=== PATIENT | female | born 1990 | race Caucasian/White ===

== ENCOUNTER → 2018-03-31 10:37 | Outpatient (CLI) | payer BC, SELFPAY ==
[2018-03-31 12:08] LABS: Absolute Lymphocyte Count 1.82 X10^3/ul (0.83-4.51); Absolute Neutrophil Count 6.8 X10^3/uL (2.0-7.7); Basophil# 0.02 X10^3/uL; Basophil% 0.2 % (0-1); Eosinophil# 0.06 X10^3/uL; Eosinophils% 0.7 % (0-5); Hematocrit 36.6 % (37-47); Hemoglobin 12.8 g/dl (12.0-15.0); Lymphocyte # 1.82 X10^3/ul (4.0); Mean Corpuscular Hgb 30.9 pg (27.0-32.0); Mean Corpuscular Volume 88.4 fL (81-99); Mean Platelet Vol. 8.8 fl (6.2-12.0); Monocyte% 4.4 % (0-10); Neutrophil # 6.79 X10^3/uL (2.7-7.7); Neutrophil % 74.4 % (47-70); Platelet Count 311 K/mm3 (150-450); RBC Distribution Width CV 11.8 % (11.6-14.6); RBC Distribution Width SD 37.5 fl (35.1-43.9); Red Blood Count 4.14 M/mm3 (4.2-5.4); White Blood Count 9.1 K/mm3 (4.4-11.0)
[2018-03-31 12:11] LABS: Glucose Challenge Gest 1H 50g 160 mg/dL (70-140); POSITIVE COUNT NO; POSITIVE DIFFERENTIAL NO; POSITIVE MORPHOLOGY NO
[2018-03-31 13:05] LABS: HIV - WCH Non-Reactive (Nonreactive); Rubella IgG 246.3 IU/mL
[2018-04-02 10:19] LABS: HEPATITIS B SURFACE AG Negative (Negative)
[2018-04-07 03:47] LABS: Rapid Plasmin Reagin (RPR) NONREACTIVE (NONREACTIVE)
== END ==
PROVIDERS: PCP Student in an Organized Health Care Education/Training Program; Visit Provider Obstetrics & Gynecology
DX: Z34.81 Encounter for supervision of other normal pregnancy, first trimester (principal)
CPT/HCPCS: 82950; 85025; 86592; 86703; 86762; 86850; 86900; 87340

== ENCOUNTER → 2018-03-31 18:47 | Outpatient (CLI) | payer BC, SELFPAY ==
[2018-03-31 22:36] LABS: Chlamydia Trachomatis by PCR Negative (Negative); Neisserai gonorrhoeae by PCR Negative (Negative)
[2018-03-31 22:37] LABS: Probe Check PASS; Sample Adequacy Control PASS; Specimen Processing Control PASS
[2018-04-05 12:12] LABS: HPV APTIMA, High Risk Negative (Negative)
== END ==
PROVIDERS: Visit Provider Obstetrics & Gynecology
DX: Z34.81 Encounter for supervision of other normal pregnancy, first trimester (principal); Z12.4 Encounter for screening for malignant neoplasm of cervix
CPT/HCPCS: 87086; 87491; 87591; 88175; G0145

== ENCOUNTER → 2018-04-10 09:51 | Outpatient (CLI) | payer BC, SELFPAY ==
[2018-04-10 10:39] LABS: Glucose GTT-Gestation. Fasting 86 mg/dL (<105)
[2018-04-10 12:27] LABS: Glucose GTT-Gestational 1 Hr 155 mg/dL (<190)
[2018-04-10 13:09] LABS: Glucose GTT-Gestational 2 Hr 169 mg/dL (<165)
[2018-04-10 14:35] LABS: Glucose GTT-Gestational 3 Hr 165 L (<145)
== END ==
PROVIDERS: Family Provider Student in an Organized Health Care Education/Training Program; PCP Student in an Organized Health Care Education/Training Program; Visit Provider Obstetrics & Gynecology
DX: O99.810 Abnormal glucose complicating pregnancy (principal); Z3A.00 Weeks of gestation of pregnancy not specified
CPT/HCPCS: 36415; 82951; 82952

== ENCOUNTER 2018-04-13 09:11 | Outpatient (RCR) | payer BC, SELFPAY | END 2018-04-15 23:59 | LOC: DC 09:11 | PROVIDERS: Family Provider Student in an Organized Health Care Education/Training Program; PCP Student in an Organized Health Care Education/Training Program; Visit Provider Obstetrics & Gynecology | DX: O24.419 Gestational diabetes mellitus in pregnancy, unspecified control (principal); Z71.3 Dietary counseling and surveillance | CPT/HCPCS: G0108 ==

== ENCOUNTER 2018-04-24 15:12 | Outpatient (RCR) | payer BC, SELFPAY | END 2018-05-16 23:59 | LOC: DC 15:12 | PROVIDERS: Family Provider Student in an Organized Health Care Education/Training Program; PCP Student in an Organized Health Care Education/Training Program; Visit Provider Obstetrics & Gynecology | DX: O24.419 Gestational diabetes mellitus in pregnancy, unspecified control (principal); Z71.3 Dietary counseling and surveillance | CPT/HCPCS: 97802 ==

== ENCOUNTER → 2018-06-12 15:19 | Outpatient (CLI) | payer BC, SELFPAY | PROVIDERS: Family Provider Student in an Organized Health Care Education/Training Program; PCP Student in an Organized Health Care Education/Training Program; Visit Provider Obstetrics & Gynecology | DX: Z34.90 Encounter for supervision of normal pregnancy, unspecified, unspecified trimester (principal) | CPT/HCPCS: 76805 ==

== ENCOUNTER → 2018-08-18 13:32 | Outpatient (CLI) | payer BC, SELFPAY ==
[2018-08-18 13:46] LABS: Absolute Lymphocyte Count 2.55 X10^3/ul (0.83-4.51); Absolute Neutrophil Count 9.7 X10^3/uL (2.0-7.7); Basophil# 0.01 X10^3/uL; Basophil% 0.1 % (0-1); Eosinophil# 0.13 X10^3/uL; Hematocrit 37.7 % (37-47); Hemoglobin 12.8 g/dl (12.0-15.0); Lymphocyte # 2.55 X10^3/ul (4.0); Lymphocyte % 19.2 % (19-41); Mean Corpuscular Hgb 30.3 pg (27.0-32.0); Mean Corpuscular Volume 89.1 fL (81-99); Mean Platelet Vol. 8.1 fl (6.2-12.0); Monocyte# 0.81 X10^3/uL; Monocyte% 6.1 % (0-10); Neutrophil # 9.71 X10^3/uL (2.7-7.7); Neutrophil % 72.9 % (47-70); POSITIVE COUNT NO; POSITIVE DIFFERENTIAL NO; POSITIVE MORPHOLOGY NO; Platelet Count 256 K/mm3 (150-450); RBC Distribution Width CV 12.5 % (11.6-14.6); RBC Distribution Width SD 39.9 fl (35.1-43.9); Red Blood Count 4.23 M/mm3 (4.2-5.4); White Blood Count 13.3 K/mm3 (4.4-11.0)
== END ==
PROVIDERS: Family Provider Student in an Organized Health Care Education/Training Program; PCP Student in an Organized Health Care Education/Training Program; Referring Provider Obstetrics & Gynecology; Visit Provider Obstetrics & Gynecology
DX: O24.410 Gestational diabetes mellitus in pregnancy, diet controlled (principal); Z3A.00 Weeks of gestation of pregnancy not specified
CPT/HCPCS: 36415; 85025

== ENCOUNTER → 2018-10-13 17:36 | Outpatient (CLI) | payer BC, SELFPAY ==
[2018-10-13 13:27] VITALS: BMI 36.9
[2018-10-13 21:11] LABS: Group B Strep DNA By PCR Negative (Negative); Internal Control PASS; Probe Check PASS; Specimen Processing Control PASS
== END ==
PROVIDERS: Family Provider Student in an Organized Health Care Education/Training Program; PCP Student in an Organized Health Care Education/Training Program; Referring Provider Obstetrics & Gynecology; Visit Provider Obstetrics & Gynecology
DX: Z34.90 Encounter for supervision of normal pregnancy, unspecified, unspecified trimester (principal)
CPT/HCPCS: 87081; 87653

== ENCOUNTER → 2018-10-16 09:01 | Outpatient (CLI) | payer BC, SELFPAY ==
[2018-09-15 13:21] VITALS: BMI 36.9
[2018-10-13 13:27] VITALS: BMI 36.9
--- NOTE | 2018-10-16 09:02 | US_ITS ---
STUDY: SECOND AND THIRD TRIMESTER OBSTETRICAL ULTRASOUND - LIMITED REASON FOR EXAM: Female, 28 years old. Routine survey. LMP: January 30, 2018. PRIOR ULTRASOUND: Comparison is made with prior study dated June 12, 2018. TECHNIQUE: Transabdominal TECHNICAL QUALITY: Adequate. FINDINGS: There is a single intrauterine fetus. The fetus is in a cephalic presentation. There is demonstrated cardiac activity with a heart rate of 156 bpm. There is a normal amniotic fluid volume. The largest amniotic fluid pocket measures 5.0 cm x 2.2 cm. The amniotic fluid index (ANGELICA) is 9.4 cm. The placenta is anterior in location and is not low lying. There are Grade 3 placental changes. The cervical length was not able to be measured due to the positioning. BIOMETRY: BPD: 9.3 cm: 38 weeks, 0 days HC: 34.4 cm: 39 weeks, 6 days AC: 34.6 cm: 38 weeks, 4 days FL: 7.3 cm: 37 weeks, 2 days Age by LMP: 37 weeks, 0 days. JENNIFER by LMP: November 06, 2018. age by prior US: 37 weeks, 3 days. JENNIFER by prior US: November 03, 2018. age by current US: 38 weeks, 3 days. JENNIFER by current US: October 27, 2018. Estimated weight: 3458 grams, +/- 5.5 grams, 87 percentile. Gender: Female US/OB Limited With Biometrics IMPRESSION: Single live intrauterine gestation with a mean gestational age of 37 weeks and 3 days. The measurements obtained today fall within the normal expected range. Electronically Signed: Adam Hernandez MD at 14:13 EST Tel [phone], Service support ,
== END ==
PROVIDERS: Family Provider Student in an Organized Health Care Education/Training Program; PCP Student in an Organized Health Care Education/Training Program; Referring Provider Obstetrics & Gynecology; Visit Provider Obstetrics & Gynecology
DX: O24.410 Gestational diabetes mellitus in pregnancy, diet controlled (principal); Z3A.00 Weeks of gestation of pregnancy not specified
CPT/HCPCS: 76816

== ENCOUNTER 2018-10-19 11:05 | Outpatient (CLI) | payer BC, MEDICAID, SELFPAY ==
[2018-10-13 13:27] VITALS: BMI 36.9
[2018-10-19 11:16] VITALS: BMI 37.9
[2018-10-19 11:48] LABS: Protein, Urine (Random) 11.8 mg/dL (<11.9); Protein:Creat Ratio 217 mg/g CRE (0-200)
[2018-10-19 11:48] LABS: Hematocrit 40.2 % (37-47); Hemoglobin 13.7 g/dl (12.0-15.0); Mean Corp Hgb Conc 34.1 g/gl (32-36); Mean Corpuscular Hgb 29.8 pg (27.0-32.0); Mean Corpuscular Volume 87.4 fL (81-99); Mean Platelet Vol. 8.8 fl (6.2-12.0); Platelet Count 222 K/mm3 (150-450); RBC Distribution Width CV 13.1 % (11.6-14.6); RBC Distribution Width SD 41.8 fl (35.1-43.9); White Blood Count 11.2 K/mm3 (4.4-11.0)
[2018-10-19 11:50] LABS: Scan Indicated on CBC? Y/N NO
[2018-10-19 11:57] LABS: AST(SGOT) 22 U/L (15-37); Alanine Aminotransfer ALT/SGPT 14 U/L (13-56); Creatinine, Serum 0.56 mg/dL (0.55-1.02); EST Glomerular Filtration Rate 137 mL/min (>60); Est Glom Filt Rate - Afr Amer 166 mL/min (>60); Estimated Creatinine Clearance 138.76 ml/min; Uric Acid 4.9 mg/dL (2.6-6.0)
[2018-10-19] MEDS: 0.9% NaCl Peripheral Flush Adult/Peds IV (12:19)
[2018-10-19 12:21] LABS: International Normalized Ratio 1.1; Partial Thromboplast Time 26.2 Seconds (24.1-36.2); Prothrombin Time (Protime)PT. 14.1 SECONDS (11.7-14.9)
--- NOTE | 2018-10-26 03:52 | OB.TRI.NOTE ---
- Problem List (1) Gestational hypertension Status: Acute History of Present Illness Date of Service: 10/19/18 Reason For Visit: R/O PRE E History of Present Illness: elevated bp in office Allergies No Known Allergies Allergy (Verified 10/23/18 22:54) Laboratory Studies: Laboratory Tests 10/19/18 10/19/18 10/19/18 Range/Units 11:55 11:35 11:35 WBC (4.4-11.0) K/mm3 RBC (4.2-5.4) M/mm3 Hgb (12.0-15.0) g/dl Hct (37-47) % MCV (81-99) fL MCH (27.0-32.0) pg MCHC (32-36) g/gl RDW (11.6-14.6) % RDW Differential (35.1-43.9) fl Plt Count (150-450) K/mm3 MPV (6.2-12.0) fl PT 14.1 Cancelled INR 1.1 Cancelled APTT 26.2 Cancelled Creatinine 0.56 (0.55-1.02) mg/dL Estim Creat Clear Calc 138.76 ml/min Est GFR (MDRD) Af Amer 166 (>60) mL/min Est GFR (MDRD) Non-Af 137 (>60) mL/min Uric Acid 4.9 (2.6-6.0) mg/dL AST 22 (15-37) U/L ALT 14 (13-56) U/L U Random Total Protein (<11.9) mg/dL Urine Creatinine (NO RANGE EST.) mg/dL Protein/Creatinin Ratio (0-200) mg/g CRE 10/19/18 10/19/18 Range/Units 11:35 11:20 WBC 11.2 H (4.4-11.0) K/mm3 RBC 4.60 (4.2-5.4) M/mm3 Hgb 13.7 (12.0-15.0) g/dl Hct 40.2 (37-47) % MCV 87.4 (81-99) fL MCH 29.8 (27.0-32.0) pg MCHC 34.1 (32-36) g/gl RDW 13.1 (11.6-14.6) % RDW Differential 41.8 (35.1-43.9) fl Plt Count 222 (150-450) K/mm3 MPV 8.8 (6.2-12.0) fl PT INR APTT Creatinine (0.55-1.02) mg/dL Estim Creat Clear Calc ml/min Est GFR (MDRD) Af Amer (>60) mL/min Est GFR (MDRD) Non-Af (>60) mL/min Uric Acid (2.6-6.0) mg/dL AST (15-37) U/L ALT (13-56) U/L U Random Total Protein 11.8 (<11.9) mg/dL Urine Creatinine 54.30 (NO RANGE EST.) mg/dL Protein/Creatinin Ratio 217 H (0-200) mg/g CRE NST - FHR Rate Baby A Baseline: 135 Variability:: Moderate Accelerations:: 15 x 15 Decelerations:: None NST Reactive:: Yes FHR Category:: Category I Uterine Activity:: no regular Impression/Plan elevated bp in office- repeats WNL. normal labs and negative proteinuria. fu in office, reviewed preeclampsia precautions
== END 2018-10-19 16:30 | disposition home or self-care (01) ==
LOC: WPOUT 11:08 → WP 11:10
PROVIDERS: Family Provider Student in an Organized Health Care Education/Training Program; PCP Student in an Organized Health Care Education/Training Program; Referring Provider Obstetrics & Gynecology; Visit Provider Obstetrics & Gynecology
DX: O16.9 Unspecified maternal hypertension, unspecified trimester (principal); Z3A.00 Weeks of gestation of pregnancy not specified
CPT/HCPCS: 36415; 59025; 59050; 82565; 82570; 84156; 84450; 84460; 84550; 85027; 85610; 85730; 99218; A4216; G0378

== ENCOUNTER 2018-10-23 10:20 | Outpatient (CLI) | payer BC, MEDICAID, SELFPAY ==
[2018-10-23 10:33] LABS: Protein, Urine (Random) 8.6 mg/dL (<11.9); Protein:Creat Ratio 218 mg/g CRE (0-200)
[2018-10-23 10:55] VITALS: BMI 38.2
[2018-10-23 11:30] LABS: Hematocrit 38.4 % (37-47); Hemoglobin 12.9 g/dl (12.0-15.0); Mean Corp Hgb Conc 33.6 g/gl (32-36); Mean Corpuscular Hgb 29.2 pg (27.0-32.0); Mean Corpuscular Volume 86.9 fL (81-99); Mean Platelet Vol. 8.5 fl (6.2-12.0); Platelet Count 209 K/mm3 (150-450); RBC Distribution Width CV 12.9 % (11.6-14.6); RBC Distribution Width SD 41.6 fl (35.1-43.9); Red Blood Count 4.42 M/mm3 (4.2-5.4); White Blood Count 10.7 K/mm3 (4.4-11.0)
[2018-10-23 11:34] LABS: International Normalized Ratio 1.1; Prothrombin Time (Protime)PT. 13.7 SECONDS (11.7-14.9)
[2018-10-23 11:35] LABS: Partial Thromboplast Time 25.2 Seconds (24.1-36.2)
[2018-10-23 11:37] LABS: Scan Indicated on CBC? Y/N NO
[2018-10-23 11:40] LABS: AST(SGOT) 13 U/L (15-37); Alanine Aminotransfer ALT/SGPT 13 U/L (13-56); Creatinine, Serum 0.51 mg/dL (0.55-1.02); EST Glomerular Filtration Rate 152 mL/min (>60); Est Glom Filt Rate - Afr Amer 184 mL/min (>60); Estimated Creatinine Clearance 152.37 ml/min; Uric Acid 5.3 mg/dL (2.6-6.0)
--- NOTE | 2018-10-26 03:54 | OB.TRI.NOTE ---
- Problem List (1) Gestational hypertension Status: Acute History of Present Illness Date of Service: 10/23/18 Was patient seen by the physician?: Yes Reason For Visit: R/O PRE E Date of Service: 10/23/18 History of Present Illness: presents for elevate bp in office Allergies No Known Allergies Allergy (Verified 10/23/18 22:54) Laboratory Studies: Laboratory Tests 10/23/18 10/23/18 10/23/18 Range/Units 11:17 11:17 11:17 WBC 10.7 (4.4-11.0) K/mm3 RBC 4.42 (4.2-5.4) M/mm3 Hgb 12.9 (12.0-15.0) g/dl Hct 38.4 (37-47) % MCV 86.9 (81-99) fL MCH 29.2 (27.0-32.0) pg MCHC 33.6 (32-36) g/gl RDW 12.9 (11.6-14.6) % RDW Differential 41.6 (35.1-43.9) fl Plt Count 209 (150-450) K/mm3 MPV 8.5 (6.2-12.0) fl PT 13.7 (11.7-14.9) SECONDS INR 1.1 APTT 25.2 (24.1-36.2) Seconds Creatinine 0.51 L (0.55-1.02) mg/dL Estim Creat Clear Calc 152.37 ml/min Est GFR (MDRD) Af Amer 184 (>60) mL/min Est GFR (MDRD) Non-Af 152 (>60) mL/min Uric Acid 5.3 (2.6-6.0) mg/dL AST 13 L (15-37) U/L ALT 13 (13-56) U/L U Random Total Protein (<11.9) mg/dL Urine Creatinine (NO RANGE EST.) mg/dL Protein/Creatinin Ratio (0-200) mg/g CRE 10/23/18 Range/Units 10:18 WBC (4.4-11.0) K/mm3 RBC (4.2-5.4) M/mm3 Hgb (12.0-15.0) g/dl Hct (37-47) % MCV (81-99) fL MCH (27.0-32.0) pg MCHC (32-36) g/gl RDW (11.6-14.6) % RDW Differential (35.1-43.9) fl Plt Count (150-450) K/mm3 MPV (6.2-12.0) fl PT (11.7-14.9) SECONDS INR APTT (24.1-36.2) Seconds Creatinine (0.55-1.02) mg/dL Estim Creat Clear Calc ml/min Est GFR (MDRD) Af Amer (>60) mL/min Est GFR (MDRD) Non-Af (>60) mL/min Uric Acid (2.6-6.0) mg/dL AST (15-37) U/L ALT (13-56) U/L U Random Total Protein 8.6 (<11.9) mg/dL Urine Creatinine 39.50 (NO RANGE EST.) mg/dL Protein/Creatinin Ratio 218 H (0-200) mg/g CRE NST - FHR Rate Baby A Baseline: 135 Variability:: Moderate Accelerations:: 15 x 15 Decelerations:: None NST Reactive:: Yes FHR Category:: Category I Uterine Activity:: no regular Impression/Plan elevated bp in office- repeats WNL. normal labs and negative proteinuria. recommend home bp checks. fu in office, reviewed preeclampsia precautions
== END 2018-10-23 13:02 | disposition home or self-care (01) ==
LOC: LABSPEC 10:22 → WPOUT 10:25 → WP 10:25
PROVIDERS: Family Provider Student in an Organized Health Care Education/Training Program; PCP Student in an Organized Health Care Education/Training Program; Referring Provider Obstetrics & Gynecology; Visit Provider Obstetrics & Gynecology
DX: O16.9 Unspecified maternal hypertension, unspecified trimester (principal); Z3A.00 Weeks of gestation of pregnancy not specified
CPT/HCPCS: 36415; 59025; 59050; 82565; 82570; 84156; 84450; 84460; 84550; 85027; 85610; 85730; 99218; G0378

== ENCOUNTER 2018-10-23 18:00 | Inpatient (IN) | payer BC, MEDICAID, SELFPAY ==
[2018-10-23 10:55] VITALS: BMI 38.2
[2018-10-23 17:37] VITALS: BMI 38.2
[2018-10-23 18:16] LABS: Bedside Glucose 96 mg/dL (70-110)
[2018-10-23] MEDS: Lactated Ringers 1,000 ML 50 ML IV (18:50)
[2018-10-23 19:08] LABS: Hematocrit 36.5 % (37-47); Hemoglobin 12.5 g/dl (12.0-15.0); Mean Corp Hgb Conc 34.2 g/gl (32-36); Mean Corpuscular Hgb 30.2 pg (27.0-32.0); Mean Corpuscular Volume 88.2 fL (81-99); Mean Platelet Vol. 8.8 fl (6.2-12.0); Platelet Count 248 K/mm3 (150-450); RBC Distribution Width SD 40.3 fl (35.1-43.9); Red Blood Count 4.14 M/mm3 (4.2-5.4); White Blood Count 11.2 K/mm3 (4.4-11.0)
[2018-10-23 19:11] LABS: Scan Indicated on CBC? Y/N NO
[2018-10-23] MEDS: oxyCODONE 5 MG Tablet PO (19:43)
[2018-10-23] MEDS: miSOPROStol 25 MCG TABLET PO (19:48)
[2018-10-23 20:02] LABS: Bedside Glucose 76 mg/dL (70-110)
[2018-10-23] MEDS: 0.9% Saline Lock 10 ML Syringe IV (21:09)
[2018-10-24] MEDS: miSOPROStol 25 MCG TABLET PO (00:18)
[2018-10-24 00:31] LABS: Bedside Glucose 82 mg/dL (70-110)
[2018-10-24 04:31] LABS: Bedside Glucose 77 mg/dL (70-110)
[2018-10-24] MEDS: 0.9% Saline Lock 10 ML Syringe IV (07:17)
[2018-10-24] MEDS: Oxytocin 30 units/NS 500 ml 30 UNITS/500 ML IV.SOLN IV (07:17)
--- NOTE | 2018-10-24 08:25 | PCM.HP.OB ---
- Problem List (1) Gestational hypertension Status: Acute (2) IUD contraception Status: Acute Comment: Preauth. Hector for insertion at delivery (3) Supervision of high risk in third trimester Status: Acute Comment: PRR JENNIFER 11/06/18 PC Thiago Strickland Tim[place] (4) Obesity affecting Status: Acute Qualifiers: Comment: first trimester glucola abnormal, diet/exercise in discussed (5) Status: Acute Qualifiers: Comment: genetic, carrier, and NTD declned. anatomy scan- (6) Diet controlled gestational diabetes mellitus in third trimester Status: Acute Comment: education, testing recommended 4 times daily, plan 36 week growth US History Date of Admission: 10/23/18 Final JENNIFER: 11/06/18 Gestational age: 38 Weeks and 1 Days History of this : This is a 28 year-old, at 38 weeks gestational age presents with GHTN and elevated bps mild range some intermitent david. she has had a complicated by GDMA1. she ddenies any vb lof admits good fm. Allergies No Known Allergies Allergy (Verified 10/23/18 22:54) Home Medications: Home Medications vitamin,calcium,huyugkle-xogl-fujqo acid tablet 1 tab PO QDAY 03/31/18 blood-glucose meter See Dose Instructions .ROUTE .MEDSUPPLY #1 ea 04/11/18 Blood Sugar Diagnostic [Contour Test Strip] 0 .ROUTE .MEDSUPPLY 10/23/18 Smoking Status: Never smoker Alcohol: None Number of Fetus(es): 1 Heart Tracin moderate variability reactive no decelerations category I tracing\ [place]: regular History Past Pregnancies: Past Pregnancies2 previous term uncomplicated Labs: Mom's Labs & Results 10/23/18 10/23/18 10/23/18 18:11 18:50 18:50 WBC 11.2 H RBC 4.14 L Hgb 12.5 Hct 36.5 L MCV 88.2 MCH 30.2 MCHC 34.2 RDW 13.0 RDW Differential 40.3 Plt Count 248 MPV 8.8 POC Glucose 96 Blood Type O POSITIVE Antibody Screen NEGATIVE 10/23/18 10/24/18 10/24/18 19:55 00:20 04:01 WBC RBC Hgb Hct MCV MCH MCHC RDW RDW Differential Plt Count MPV POC Glucose 76 82 77 Blood Type Antibody Screen 10/24/18 08:08 WBC RBC Hgb Hct MCV MCH MCHC RDW RDW Differential Plt Count MPV POC Glucose 72 Blood Type Antibody Screen Course Did the patient receive Yes care? Labs Blood Type: O RH: POSITIVE RPR/VDRL/Syphilis Nonreactive Rubella status Immune HbSAg Negative Date Done: 03/31/18 Chlamydia Negative Gonorrhea Negative HIV/AIDS Non-Reactive Group B Strep: Negative Current Obstetrical History Gestational Diabetes No: gestational dm diet controlled Incompetent Cervix No Infertility No IUGR No Macrosomia No Hypertension/Pre-eclampsia Yes Placenta Previa/Abruption No PTL/PROM No Uterine anomaly No Oligohydramnios No Polyhydramnios No Multiple gestation No Past Medical History Asthma No Diabetes No Hypertension No Heart disease No Mitral valve prolapse No Neurologic/Seizure disorder/ Yes Migraines Kidney disease No Liver disease No Varicosities No Clotting disorders/Hx of DVT No Thyroid Dysfunction No Other medical diseases No Psychiatric disorders No Major trauma No Abnormal PAP smear No Sleep apnea No Mammogram in the last 2 years No Social History Marital Status: Alleged father Timi Rushing Hx Smoking No Smoking Status Never smoker Expected Infant Delivery Method: Spontaneous Vaginal Review of Systems Constitutional: Denies: Fever, Malaise Eyes: Reports: Vision Change. Denies: Blurred vision HEENT: Reports: Head Aches, Visual Changes Cardiovascular: Denies: Chest Pain, Palpitations Respiratory: Denies: Cough, Shortness of Breath, Wheezing Gastrointestinal: Denies: Abdominal Pain, Diarrhea, Nausea, Vomiting Genitourinary: Denies: Dysuria, Hematuria Musculoskeletal: Denies: Joint Pain, Muscle pain Skin: Denies: Lesions, Rash Neurological: Reports: Headaches. Denies: Blurred vision, Focal weakness Psychiatric: Denies: Anxiety, Depression Endocrine: Denies: Heat/ Cold Intolerance Hematologic/ Lymphatic: Denies: Easy Bruising, Easy Bleeding Physical Exam General: Alert, Cooperative, No apparent distress HEENT: Atraumatic, Normocephalic. Negative for: Thyromegaly, Lymphadenopathy Cardiovascular: Regular rate Lungs: Normal air movement Abdomen: Soft, Non Tender, Gravid Neurological: Deep Tendon Reflexes 2+/4 and Symmetrical, Neuro grossly intact. Negative for: Clonus NETWORK RELAY TESTER: Normal external genitalia. Negative for: Vulvar lesions Estimated gestational size: Appropriate for gestational size Presentation: Cephalic Cervix Dilation (cm): 2 Assessment/Plan All Active Problems (Last Reviewed 10/19/18 @ 10:25 by Chikis Velazquez) Gestational hypertension (Acute) IUD contraception (Acute) Supervision of high risk in third trimester (Acute) Obesity affecting (Acute) (Acute) Diet controlled gestational diabetes mellitus in third trimester (Acute) BMI 33.0-33.9,adult (Resolved) Supervision of normal (Resolved) This is a 28 year-old, , at 38 weeks gestational age presents with GHTN for IOL Patient presents IOL, plan expectant management for , pitocin/AROM after cytotec for cervical ripening. Pain management: plans epidural. GBS negative. Management of any complications: diabetes- q 4 hours BS check latent phase and q 1 hr in active phase labor I have reviewed the [facility] and made any clinically relevant updates.
[2018-10-24 08:26] LABS: Bedside Glucose 72 mg/dL (70-110)
--- NOTE | 2018-10-24 08:29 | HP.PCM_ITS ---
- Problem List (1) Gestational hypertension Status: Acute (2) IUD contraception Status: Acute Comment: Preauth. Hector for insertion at delivery (3) Supervision of high risk in third trimester Status: Acute Comment: PRR JENNIFER 11/06/18 PC Thiago Strickland [place] (4) Obesity affecting Status: Acute Qualifiers: Comment: first trimester glucola abnormal, diet/exercise in discussed (5) Status: Acute Qualifiers: Comment: genetic, carrier, and NTD declned. anatomy scan- (6) Diet controlled gestational diabetes mellitus in third trimester Status: Acute Comment: education, testing recommended 4 times daily, plan 36 week growth US History Date of Admission: 10/23/18 Final JENNIFER: 11/06/18 Gestational age: 38 Weeks and 1 Days History of this : This is a 28 year-old, at 38 weeks gestational age presents with GHTN and elevated bps mild range some intermitent david. she has had a complicated by GDMA1. she ddenies any vb lof admits good fm. Allergies No Known Allergies Allergy (Verified 10/23/18 22:54) Home Medications: Home Medications vitamin,calcium,demhsaik-vimj-xbgrt acid tablet 1 tab PO QDAY 03/31/18 blood-glucose meter See Dose Instructions .ROUTE .MEDSUPPLY #1 ea 04/11/18 Blood Sugar Diagnostic [Contour Test Strip] 0 .ROUTE .MEDSUPPLY 10/23/18 Smoking Status: Never smoker Alcohol: None Number of Fetus(es): 1 Heart Tracin moderate variability reactive no decelerations category I tracing\ [place]: regular History Past Pregnancies: Past Pregnancies2 previous term uncomplicated Labs: Mom's Labs & Results 10/23/18 10/23/18 10/23/18 18:11 18:50 18:50 WBC 11.2 H RBC 4.14 L Hgb 12.5 Hct 36.5 L MCV 88.2 MCH 30.2 MCHC 34.2 RDW 13.0 RDW Differential 40.3 Plt Count 248 MPV 8.8 POC Glucose 96 Blood Type O POSITIVE Antibody Screen NEGATIVE 10/23/18 10/24/18 10/24/18 19:55 00:20 04:01 WBC RBC Hgb Hct MCV MCH MCHC RDW RDW Differential Plt Count MPV POC Glucose 76 82 77 Blood Type Antibody Screen 10/24/18 08:08 WBC RBC Hgb Hct MCV MCH MCHC RDW RDW Differential Plt Count MPV POC Glucose 72 Blood Type Antibody Screen Course Did the patient receive Yes care? Labs Blood Type: O RH: POSITIVE RPR/VDRL/Syphilis Nonreactive Rubella status Immune HbSAg Negative Date Done: 03/31/18 Chlamydia Negative Gonorrhea Negative HIV/AIDS Non-Reactive Group B Strep: Negative Current Obstetrical History Gestational Diabetes No: gestational dm diet controlled Incompetent Cervix No Infertility No IUGR No Macrosomia No Hypertension/Pre-eclampsia Yes Placenta Previa/Abruption No PTL/PROM No Uterine anomaly No Oligohydramnios No Polyhydramnios No Multiple gestation No Past Medical History Asthma No Diabetes No Hypertension No Heart disease No Mitral valve prolapse No Neurologic/Seizure disorder/ Yes Migraines Kidney disease No Liver disease No Varicosities No Clotting disorders/Hx of DVT No Thyroid Dysfunction No Other medical diseases No Psychiatric disorders No Major trauma No Abnormal PAP smear No Sleep apnea No Mammogram in the last 2 years No Social History Marital Status: Alleged father Timi Rushing Hx Smoking No Smoking Status Never smoker Expected Infant Delivery Method: Spontaneous Vaginal Review of Systems Constitutional: Denies: Fever, Malaise Eyes: Reports: Vision Change. Denies: Blurred vision HEENT: Reports: Head Aches, Visual Changes Cardiovascular: Denies: Chest Pain, Palpitations Respiratory: Denies: Cough, Shortness of Breath, Wheezing Gastrointestinal: Denies: Abdominal Pain, Diarrhea, Nausea, Vomiting Genitourinary: Denies: Dysuria, Hematuria Musculoskeletal: Denies: Joint Pain, Muscle pain Skin: Denies: Lesions, Rash Neurological: Reports: Headaches. Denies: Blurred vision, Focal weakness Psychiatric: Denies: Anxiety, Depression Endocrine: Denies: Heat/ Cold Intolerance Hematologic/ Lymphatic: Denies: Easy Bruising, Easy Bleeding Physical Exam General: Alert, Cooperative, No apparent distress HEENT: Atraumatic, Normocephalic. Negative for: Thyromegaly, Lymphadenopathy Cardiovascular: Regular rate Lungs: Normal air movement Abdomen: Soft, Non Tender, Gravid Neurological: Deep Tendon Reflexes 2+/4 and Symmetrical, Neuro grossly intact. Negative for: Clonus PARTS IDENTIFIER: Normal external genitalia. Negative for: Vulvar lesions Estimated gestational size: Appropriate for gestational size Presentation: Cephalic Cervix Dilation (cm): 2 Assessment/Plan All Active Problems (Last Reviewed 10/19/18 @ 10:25 by Chikis Velazquez) Gestational hypertension (Acute) IUD contraception (Acute) Supervision of high risk in third trimester (Acute) Obesity affecting (Acute) (Acute) Diet controlled gestational diabetes mellitus in third trimester (Acute) BMI 33.0-33.9,adult (Resolved) Supervision of normal (Resolved) This is a 28 year-old, , at 38 weeks gestational age presents with GHTN for IOL Patient presents IOL, plan expectant management for , pitocin/AROM after cytotec for cervical ripening. Pain management: plans epidural. GBS negative. Management of any complications: diabetes- q 4 hours BS check latent phase and q 1 hr in active phase labor I have reviewed the [facility] and made any clinically relevant updates.
[2018-10-24] MEDS: Lactated Ringers 1,000 ML 50 ML IV (10:11)
[2018-10-24] MEDS: fentaNYL-bupivacaine (epidural) 100 ML BAG EPIDURAL (10:30)
[2018-10-24 10:45] LABS: Bedside Glucose 75 mg/dL (70-110)
[2018-10-24 12:05] LABS: Bedside Glucose 66 mg/dL (70-110)
[2018-10-24 12:55] LABS: Bedside Glucose 70 mg/dL (70-110)
[2018-10-24] MEDS: Oxytocin 30 units/NS 500 ml 30 UNITS/500 ML IV.SOLN 334 UNITS IV (13:20)
[2018-10-24] MEDS: Oxytocin 30 units/NS 500 ml 30 UNITS/500 ML IV.SOLN 167 UNITS IV (13:50)
[2018-10-24 14:41] LABS: Bedside Glucose 92 mg/dL (70-110)
--- NOTE | 2018-10-24 15:35 | NURSING ---
Received report from Fani Owens and Kirsten De Luna. I will assume care of patient at this time.
[2018-10-24 15:59] VITALS: BP 125/60; PULSE 97; RESP 16; TEMP 37.2; O2SAT 95
[2018-10-24] MEDS: Naproxen 250 MG Tablet PO (18:04)
--- NOTE | 2018-10-24 18:47 | NURSING ---
Nurse visualized egg-sized clot when getting up to the bathroom for the first time to void. Bleeding appropriate.
[2018-10-24 20:45] VITALS: BP 126/74; PULSE 92; RESP 17; TEMP 37; O2SAT 97
[2018-10-24] MEDS: Acetaminophen 500 MG Tablet 1000 MG PO (21:34)
[2018-10-25 00:15] VITALS: BP 127/66; PULSE 83; RESP 17; TEMP 36.9; O2SAT 99
[2018-10-25 04:23] VITALS: BP 119/71; PULSE 72; RESP 15; TEMP 36.3; O2SAT 94
--- NOTE | 2018-10-25 04:45 | PCM.OB.VAG ---
- Problem List (1) Gestational hypertension Status: Acute (2) IUD contraception Status: Acute Comment: Preauth. Hector for insertion at delivery (3) Supervision of high risk in third trimester Status: Acute Comment: PRR JENNIFER 11/06/18 PC Thiago Strickland [place] (4) Obesity affecting Status: Acute Qualifiers: Comment: first trimester glucola abnormal, diet/exercise in discussed (5) Status: Acute Qualifiers: Comment: genetic, carrier, and NTD declned. anatomy scan- (6) Diet controlled gestational diabetes mellitus in third trimester Status: Acute Comment: education, testing recommended 4 times daily, plan 36 week growth US Vaginal Delivery Maternal Presentation: Medically Indicated Induction iol 38w ghtn Method of Induction: Pitocin, Cytotec Medical Reason for Induction: Gestational Hypertension Amniotic Membrane Rupture Type: Artificial Amniotic Fluid Description: Clear Final JENNIFER: 11/06/18 Gestational age: 38 Weeks and 1 Days Date of Procedure: 10/24/18 Pre-Operative Diagnosis: iol ghtn Post-Operative Diagnosis: same Surgery/ Procedure Performed: Spontaneous Vaginal Delivery Type of Anesthesia: Epidural Description of Procedure: Patient began pushing and delivered the head in the DONNA presentation. The head was delivered atraumatically. The anterior and posterior shoulders delivered without complication followed by the rest of the infant and the infant was placed on the maternal abdomen. Delayed cord clamping was employed for approximately 60 seconds. Cord was clamped and cut and gentle traction was applied to the cord and the placenta delivered spontaneously immediately following it was noted to be intact with three-vessel cord. The perineum and vagina were inspected and noted to have no laceration. EBL was 200 cc. Patient and tolerated delivery well. Presentation: DONNA Placental Delivery Description: Spontaneous Placenta Disposition: [facility] Cord Vessel Description: 3 Vessels Cord Entanglement: None Estimated Blood Loss: 200 Infant A gender: Female Episiotomy Description: None Laceration: None Medications given after delivery: IV Pitocin Complications: None
[2018-10-25 06:05] LABS: Bedside Glucose 68 mg/dL (70-110)
[2018-10-25 06:45] LABS: Bedside Glucose 96 mg/dL (70-110)
[2018-10-25 08:30] VITALS: BP 126/80; PULSE 93; RESP 16; TEMP 36.2; O2SAT 95
--- NOTE | 2018-10-25 08:56 | PCM.PN.OB ---
Patient Problems: Active and Suspected Problems (Last Reviewed 10/19/18 @ 10:25 by Chikis Velazquez) Gestational hypertension (Acute) Subjective: Doing well. NO CP, SOB. Plans home today - Physical Exam General: Alert, Oriented x3 Abdomen: Soft, Non Tender, - - FF below U Vital Signs Temp Pulse Resp BP Pulse Ox 97.1 F L 93 16 126/80 H 95 10/25/18 08:30 10/25/18 08:30 10/25/18 08:30 10/25/18 08:30 10/25/18 08:30 Oxygen Delivery Method Room Air Weight: 236 lb 15.951 oz Body Mass Index (BMI) 38.2 Intake and Output for Last 24 Hours 10/23/18 10/24/18 10/25/18 23:59 23:59 23:59 Intake Total 2759 / 2759 Output Total 1600 / 1600 Balance 1159 / 1159 POC Glucose 10/25/18 10/25/18 10/24/18 06:36 05:57 14:34 POC Glucose 96 68 L 92 10/24/18 10/24/18 10/24/18 12:50 11:43 10:41 POC Glucose 70 66 L 75 Medical Necessity - Tobacco Use Smoking Status: Never smoker Assessment/Plan All Active Problems (Last Reviewed 10/19/18 @ 10:25 by Chikis Velazquez) Gestational hypertension (Acute) IUD contraception (Acute) Supervision of high risk in third trimester (Acute) Obesity affecting (Acute) (Acute) Diet controlled gestational diabetes mellitus in third trimester (Acute) BMI 33.0-33.9,adult (Resolved) Supervision of normal (Resolved) PPD #1: Routine care. . BP and glucose WNL. Home today.
--- NOTE | 2018-10-25 08:58 | PCM.DCVAG ---
Additional Instructions: If you experience any of the following, contact your healthcare provider. Bleeding that soaks a pad every hour for 2 hours Fever 100.4 or higher Unrelieved incision or abdominal pain Swelling, redness, discharge or bleeding from your incision or episiotomy site Your incision begins to separate Problems urinating (including inability to urinate or burning while urinating). Visual changes Severe headache Flu-like symptoms Pain or redness in one of both of your breasts Pain, warmth, tenderness or swelling in your legs, especially the calf area Frequent nausea and vomiting Symptoms of depression or anxiety If you experience any of the following, call 911 or go to the nearest Emergency Room. Chest pain Problems breathing Seizure activity Partial or complete paralysis of a body part, slurred speech, weakness or drooping of the face, or a sudden inability to walk or hold your balance Allergies/Adverse Reactions: Allergies No Known Allergies Allergy (Verified 10/23/18 22:54) Medications to take at Discharge vitamin,calcium,fahgwfhz-muxh-gtszi acid tablet 1 tab PO QDAY 03/31/18 blood-glucose meter See Dose Instructions .ROUTE .MEDSUPPLY #1 ea 04/11/18 Blood Sugar Diagnostic [Contour Test Strip] 0 .ROUTE .MEDSUPPLY 10/23/18 Primary Care Physician: Moody Ray DO [Primary Care Provider] - Test Results: Test results from this visit will be discussed in further detail at your follow-up appointment, if applicable.
--- NOTE | 2018-10-25 08:59 | DCINST_ITS ---
Additional Instructions: If you experience any of the following, contact your healthcare provider. * Bleeding that soaks a pad every hour for 2 hours * Fever 100.4 or higher * Unrelieved incision or abdominal pain * Swelling, redness, discharge or bleeding from your incision or episiotomy site * Your incision begins to separate * Problems urinating (including inability to urinate or burning while urinating). * Visual changes * Severe headache * Flu-like symptoms * Pain or redness in one of both of your breasts * Pain, warmth, tenderness or swelling in your legs, especially the calf area * Frequent nausea and vomiting * Symptoms of depression or anxiety If you experience any of the following, call 911 or go to the nearest Emergency Room. * Chest pain * Problems breathing * Seizure activity * Partial or complete paralysis of a body part, slurred speech, weakness or drooping of the face, or a sudden inability to walk or hold your balance Allergies/Adverse Reactions: Allergies No Known Allergies Allergy (Verified 10/23/18 22:54) Medications to take at Discharge vitamin,calcium,gvwihrns-vhij-nowcl acid tablet 1 tab PO QDAY 03/31/18 blood-glucose meter See Dose Instructions .ROUTE .MEDSUPPLY #1 ea 04/11/18 Blood Sugar Diagnostic [Contour Test Strip] 0 .ROUTE .MEDSUPPLY 10/23/18 Primary Care Physician: Moody Ray DO [Primary Care Provider] - Test Results: Test results from this visit will be discussed in further detail at your follow- up appointment, if applicable.
[2018-10-25 11:50] VITALS: BP 120/73; PULSE 97; RESP 20; TEMP 36.2; O2SAT 97
[2018-10-25] MEDS: Naproxen 250 MG Tablet PO (11:50)
== END 2018-10-25 15:35 | disposition home or self-care (01) | DRG 807 ==
LOC: WPOUT 18:08
PROVIDERS: Admitting Provider Obstetrics & Gynecology; Family Provider Student in an Organized Health Care Education/Training Program; PCP Student in an Organized Health Care Education/Training Program; Referring Provider Obstetrics & Gynecology; Visit Provider Obstetrics & Gynecology
DX: O13.4 Gestational [pregnancy-induced] hypertension without significant proteinuria, complicating childbirth (principal); O24.420 Gestational diabetes mellitus in childbirth, diet controlled; O99.214 Obesity complicating childbirth; Z3A.38 38 weeks gestation of pregnancy; Z37.0 Single live birth
CPT/HCPCS: 59025; 59050; 82962; 85027; 86850; 86900; 99218; J7120; A4216; G0378

== ENCOUNTER 2018-11-07 15:41 | Emergency (ER) | payer BC, MEDICAID, SELFPAY ==
[2018-11-07] VITALS (8 sets, daily range): BP systolic 138–158; BP diastolic 84–109; PULSE 87–117; RESP 14–18; TEMP 36.4; O2SAT 96–100; BMI 38.2; BMI 34.4
--- NOTE | 2018-11-07 15:49 | ED.RN ---
PT SENT FROM DR. TAN'S OFFICE TO BEEN SEEN FOR ABDOMINAL PAIN. PT DENIES COLLINS, DIZZINESS. PT TRIGGERS PROTOCOL IN TRIAGE TO SEND PT TO OB FOR MONITORING. THIS RN CNSULTED DR. BECKER, WHOM REPORTS HE WILL SEE PT IN ED.
--- NOTE | 2018-11-07 16:00 | ED.DCSUM_ITS ---
- ER Visit Summary Date of Service: 11/07/18 Chief Complaint: Abdominal pain History of Present Illness: The patient is a 28 F who presents with abdominal pain that has been intermittent since yesterday. Patient states the pain lasts approximately 2 hours. Patient describes the pain as dull. Patient states the pain is worse over the right lower quadrant but also is over the left lower quadrant. Patient admits to some nausea but denies any vomiting or hematemesis. Patient denies any diarrhea, melena, or hematochezia. Patient denies any dysuria or hematuria. Patient had recent vaginal delivery but denies any vaginal bleeding or discharge. She does admit to some back pain with her abdominal pain. Physical Examination: Vital signs are stable. Patient is afebrile. Patient is in no acute distress. Oral mucosa is pink and moist. Neck is supple. Trachea is midline. There is no JVD noted. Heart was regular rate and rhythm. Lungs are clear and equal bilateral. Abdomen is soft. Bowel sounds are normal. There is mild right lower quadrant tenderness. There is no guarding noted. Skin is warm dry. Cranial nerves II through XII are intact. There are no focal motor or sensory deficits noted. Deep tendon reflexes were 2+/4 bilaterally. The remaining physical exam is within normal limits. Test Results: CBC, comprehensive metabolic profile, and urinalysis were obtained and were all within normal limits. CT scan of the abdomen and pelvis was obtained. The appendix was visualized and is normal. There is some inflammation of the round ligament on the right. There is no other acute intra- abdominal pathology noted. Emergency Department Course and Treatment: Patient was treated with hydralazine for her blood pressure here. Patient felt better on reevaluation. Case was discussed with Dr. Mcdonald. She was given the results of the lab work and CT. She will follow-up with the patient in her office. Patient was instructed to follow-up with Dr. Mcdonald in 2-3 days. Patient understood and is agreeable with the plan. All questions were answered. Disposition: Discharge home Impression: Right lower quadrant abdominal pain This note was generated with [employer] software. It may contain incorrect words, spelling, and punctuation that were not noted in review of the chart prior to signing ED Disposition - Plan for ED Patient: Disposition: Home or Assisted Living Chief Complaint: Abd Pain Diagnosis: Right lower quadrant abdominal pain Instructions: ED Abdominal Pain Unkn Cause Prescriptions: Ibuprofen [Motrin] 800 mg PO TID PRN PRN #20 tab PRN Reason: Pain Referrals: Moody Ray DO [Primary Care Provider] - Additional Instructions: Take the ibuprofen as needed for pain. Follow-up with Dr. Mcdonald in 2-3 days.
[2018-11-07] MEDS: hydrALAZINE 20 MG/ML Vial 5 MG IV ×2 (16:12→17:56)
[2018-11-07 16:33] LABS: ALB/GLOB Ratio 0.8 RATIO (0.9-2.4); AST(SGOT) 15 U/L (15-37); Alanine Aminotransfer ALT/SGPT 24 U/L (13-56); Albumin, Serum 3.3 g/dL (3.2-5.0); Alkaline Phosphatase 109 U/L (45-117); Anion Gap 8 (5-15); BUN 10 mg/dL (7-18); Calcium,Total 8.9 mg/dL (8.5-10.1); Chloride 110 mmol/L (98-107); Creatinine, Serum 0.67 mg/dL (0.55-1.02); EST Glomerular Filtration Rate 111 mL/min (>60); Est Glom Filt Rate - Afr Amer 134 mL/min (>60); Estimated Creatinine Clearance 115.98 ml/min; Glucose 82 mg/dL (74-106); Protein, Total 7.3 g/dL (6.4-8.2); Sodium Level 145 mmol/L (136-145)
[2018-11-07 16:38] LABS: Absolute Lymphocyte Count 2.63 X10^3/ul (0.83-4.51); Absolute Neutrophil Count 7.1 X10^3/uL (2.0-7.7); Basophil# 0.03 X10^3/uL; Basophil% 0.3 % (0-1); Eosinophil# 0.27 X10^3/uL; Eosinophils% 2.5 % (0-5); Hematocrit 43.1 % (37-47); Hemoglobin 14.3 g/dl (12.0-15.0); Lymphocyte # 2.63 X10^3/ul (4.0); Lymphocyte % 24.4 % (19-41); Mean Corp Hgb Conc 33.2 g/gl (32-36); Mean Corpuscular Hgb 29.3 pg (27.0-32.0); Mean Corpuscular Volume 88.3 fL (81-99); Mean Platelet Vol. 8.5 fl (6.2-12.0); Monocyte# 0.72 X10^3/uL; Monocyte% 6.7 % (0-10); Neutrophil # 7.08 X10^3/uL (2.7-7.7); Neutrophil % 65.7 % (47-70); Platelet Count 379 K/mm3 (150-450); RBC Distribution Width CV 12.1 % (11.6-14.6); RBC Distribution Width SD 38.5 fl (35.1-43.9); Red Blood Count 4.88 M/mm3 (4.2-5.4); White Blood Count 10.8 K/mm3 (4.4-11.0)
[2018-11-07 16:46] LABS: POSITIVE COUNT NO; POSITIVE DIFFERENTIAL NO; POSITIVE MORPHOLOGY NO
--- NOTE | 2018-11-07 17:01 | ED.RN ---
THIS RN CALLED TO DR. TAN'S OFFICE AND SPOKE WITH TAMIE. PT BLOOD PRESSURE WAS ELEVATED IN OFFICE, NURSE PRACTITIONER MELO AWARE AND CLEARED PT TO BE SEEN IN ED.
--- NOTE | 2018-11-07 17:24 | ED.RN ---
CHARGE NURSE BIA NOTIFIED OF PT BEING SENT FROM OB OFFICE TO BE SEEN IN ED AT 1549.
--- NOTE | 2018-11-07 17:28 | ED.RN ---
MD AND CHARGE NURSE AWARE OF CONTINUED BLOOD PRESSURE READINGS. STATES WE WILL CONTINUE TO MONITOR PT IN ED.
[2018-11-07 17:36] LABS: Bacteria 0 SEEN /hpf (None Seen); Mucous, Urine 0 SEEN /hpf (<or=2+); Red Blood Cells-Urine 0 SEEN /hpf (0-5); Squamous Epithelial Cells - UA 0 SEEN /hpf (5-10); White Blood Cells 0 SEEN /hpf (0-5)
--- NOTE | 2018-11-07 17:37 | CT_ITS ---
STUDY: CT ABDOMEN AND PELVIS WITH CONTRAST REASON FOR EXAM: Female, 28 years old. Right lower quadrant abdominal pain. The patient is hypertensive and is recently . RADIATION DOSAGE (If Supplied By Facility): CTDIvol = ( 14.32 ) mGy, DLP = ( 1195.31 ) mGycm TECHNIQUE: Transaxial images were obtained from the dome of the diaphragm to the symphysis pubis without oral contrast. 100mL ml of Isovue 300 contrast was administered. Sagittal and coronal images were reconstructed. Individualized dose optimization techniques were used for this CT. COMPARISON: Prior comparable comparison studies are not available for review at this time. FINDINGS: The visualized lung bases are unremarkable. The visualized portions of the heart are within normal limits. Normal liver. Normal gallbladder and extrahepatic biliary system. Normal spleen. Normal pancreas. Normal bilateral adrenal glands. Normal right kidney. There is a tiny nonobstructing calculus in upper pole left kidney measuring about 2 mm in size. There is no evidence for hydronephrosis, hydroureter or radiopaque ureteral calculus. Normal visualized stomach. There is no evidence for dilated bowel, ascites or pneumoperitoneum. The small bowel has a grossly normal appearance. Stool is visible throughout the colon with scattered colonic diverticula. The appendix is visualized and appears normal. There is some asymmetry in the appearance of the right round ligament being larger than left. This could be the result of acute inflammation. Normal abdominal aorta. There is venous distention of the inferior vena cava (IVC). Normal retroperitoneum. The urinary bladder is very distended. The uterus is mildly enlarged consistent with recent state. Normal abdominal wall. Normal osseous structures. CT/Abdomen/Pelvis WITH Contrast IMPRESSION: Asymmetry in the appearance of the round ligaments, right larger than left. This could be the result of acute inflammation of the right-sided round ligament. Electronically Signed: Deepika Maravilla MD at 20:19 EST , Service support ,
[2018-11-07 17:38] LABS: Color, Urine Yellow (Yellow); Glucose, Dipstick Normal (Normal); Ketone-Dipstick Negative (Negative); Leukocyte Esterase-Dipstick Negative /ul (Negative); Nitrite-Dipstick Negative (Negative); Occult Blood-Urine 10 /ul (Negative); Protein-Dipstick Negative (Negative); Urine Bilirubin Dipstick Negative (Negative); Urine Clarity Clear (Clear); Urine Urobilinogen Normal (Normal)
--- NOTE | 2018-11-07 19:14 | ED.RN ---
Approached Dr Vaughn at approx 1615 about pt increased BP 2 weeks post . He expressed concern over eclampsia but also the potential of appendicitis. She was sent to the ED by Dr Mcdonald. Pt is currently alert and without headache though her BP remains elevated. I had approached again and received a verbal order for hydralazine 10mg IV.
[2018-11-07] MEDS: hydrALAZINE 20 MG/ML Vial 10 MG IV (19:25)
--- OUTSIDE RECORDS SUMMARY | 2019-01-09 22:08 | XMS RPT_ITS ---
:1990 Author Organization OHIP Support Name Relationship Address Phone NITHIN REGALADO Unavailable [address] + [place] [address] DESTINEE BHAGAT Unavailable [address] + [place] [address] [employer] Unavailable [address] + [place] [address] FABRCIIO NITHIN Unavailable [address] + [place] [address] DESTINEE BHAGAT Unavailable [address] + [place] [address] [employer] Unavailable [address] + [place] [address] FABRICIO NITHIN Unavailable [address] + [place] [address] DESTINEE BHAGAT Unavailable [address] + [place] [address] [employer] Unavailable [address] + [place] [address] NITHIN REGALADO Unavailable [address] + [place] [address] DESTINEE BHAGAT Unavailable [address] + [place] [address] [employer] Unavailable [address] + [place] [address] NITHIN REGALADO Unavailable [address] + [place] [address] DESTINEE BHAGAT Unavailable [address] + [place] [address] [employer] Unavailable [address] + [place] [address] FABRICIO NITHIN Unavailable [address] + [place] [address] DESTINEE BHAGAT Unavailable [address] + [place] [address] [employer] Unavailable [address] + [place] [address] FABRICIO NITHIN Unavailable [address] + [place] [address] DESTINEE BHAGAT Unavailable [address] + [place] [address] [employer] Unavailable [address] + [place] [address] FABRICIO NITHIN Unavailable [address] + [place] [address] DESTINEE BHAGAT Unavailable [address] + [place] [address] [employer] Unavailable [address] + [place] [address] SHAVONERT NITHIN Unavailable [address] + [place] [address] DESTINEE BHAGAT Unavailable [address] + [place] [address] [employer] Unavailable [address] + [place] [address] FABRICIO NITHIN Unavailable [address] + [place] [address] DESTINEE BHAGAT Unavailable [address] + [place] [address] [employer] Unavailable [address] + [place] [address] SHAVONERT NITHIN Unavailable [address] + [place] [address] DESTINEE BHAGAT Unavailable [address] + [place] [address] [employer] Unavailable [address] + [place] [address] NITHIN REGALADO Unavailable [address] + [place] [address] DESTINEE BHAGAT Unavailable [address] + [place] [address] [employer] Unavailable [address] + [place] [address] HOFFERT, NITHIN Unavailable [address] + [place] [address] DESTINEE BHAGAT Unavailable [address] + [place] [address] [employer] Unavailable [address] + [place] [address] SHAVONERT, NITHIN Unavailable [address] + [place] [address] DESTINEE BHAGAT Unavailable [address] + [place] [address] [employer] Unavailable [address] + [place] [address] SHAVONERT NITHIN Unavailable [address] + [place] [address] DESTINEE BHAGAT Unavailable [address] + [place] [address] [employer] Unavailable [address] + [place] [address] SHAVONERT, NITHIN Unavailable [address] + [place] [address] DESTINEE BHAGAT Unavailable [address] + [place] [address] [employer] Unavailable [address] + [place] [address] HOFFERT, NITHIN Unavailable [address] + [place] [address] DESTINEE BHAGAT Unavailable [address] + [place] [address] [employer] Unavailable [address] + [place] [address] SHAVONERT NITHIN Unavailable [address] + [place] [address] DESTINEE BHAGAT Unavailable [address] + [place] [address] [employer] Unavailable [address] + [place] [address] FABRICIO NITHIN Unavailable [address] + [place] [address] DESTINEE BHAGAT Unavailable [address] + [place] [address] [employer] Unavailable [address] + [place] [address] HOFFERT NITHIN Unavailable [address] + [place] [address] DESTINEE BHAGAT Unavailable [address] + [place] [address] [employer] Unavailable [address] + [place] [address] FABRICIO NITHIN Unavailable [address] + [place] [address] DESTINEE BHAGAT Unavailable [address] + [place] [address] [employer] Unavailable [address] + [place] [address] FABRICIO NITHIN Unavailable [address] + [place] [address] DESTINEE BHAGAT Unavailable [address] + [place] [address] [employer] Unavailable [address] + [place] [address] SHAVONERT NITHIN Unavailable [address] + [place] [address] DESTINEE BHAGAT Unavailable [address] + [place] [address] [employer] Unavailable [address] + [place] [address] FABRICIO NITHIN Unavailable [address] + [place] [address] DESTINEE BHAGAT Unavailable [address] + [place] [address] [employer] Unavailable [address] + [place] [address] NITHIN REGALADO Unavailable [address] + [place] [address] DESTINEE BHAGAT Unavailable [address] + [place] [address] [employer] Unavailable [address] + [place] [address] NITHIN REGALADO Unavailable [address] + [place] [address] DESTINEE BHAGAT Unavailable [address] + [place] [address] [employer] Unavailable [address] + [place] [address] NITHIN REGALADO Unavailable [address] + [place] [address] DESTINEE BHAGAT Unavailable [address] + [place] [address] [employer] Unavailable [address] + [place] [address] NITHIN REGALADO Unavailable [address] + [place] [address] DESTINEE BHAGAT Unavailable [address] + [place] [address] [employer] Unavailable [address] + [place] [address] NITHIN REGALADO Unavailable [address] + [place] [address] TORRES THAI Unavailable . +. [place] [address] DESTINEE BHAGAT Unavailable [address] + [place] [address] NITHIN REGALADO Unavailable [address] + [place] [address] TORRES THAI Unavailable . +. [place] [address] DESTINEE BHAGAT Unavailable [address] + [place] [address] NITHIN REGALADO Unavailable [address] + [place] [address] TORRES THAI Unavailable / +/ [place] [address] FABRICIO NITHIN Unavailable [address] + [place] [address] TORRES THAI Unavailable / +/ [place] [address] TORRES THAI Unavailable / +/ [place] [address] KLEROSALVA NITHIN Unavailable [address] + [place] [address] GALELIZET PRINCE Unavailable [address] + [place] [address] [place] [facility] Unavailable / +/ [place] [address] Care Team Providers Name Role Phone Joelle Mcdonald Attending Unavailable Ray, Moody Referring Unavailable Marcanthony, Joelle Attending Unavailable Marcanthony, Joelle Referring Unavailable Ray, Moody Primary Care Unavailable Marcanthony, Joelle Attending Unavailable Ray, Moody Referring Unavailable Marcanthony, Joelle Attending Unavailable Ray, Moody Primary Care Unavailable Marcanthony, Joelle Referring Unavailable Marcanthony, Joelle Attending Unavailable Ray, Moody Referring Unavailable Marcanthony, Joelle Attending Unavailable Marcanthony, Joelle Referring Unavailable Ray, Moody Primary Care Unavailable Marcanthony, Joelle Attending Unavailable Ray, Moody Referring Unavailable Marcanthony, Joelle Attending Unavailable Marcanthony, Joelle Referring Unavailable Ray, Moody Primary Care Unavailable Marcanthony, Joelle Attending Unavailable Marcanthony, Joelle Referring Unavailable Ray, Moody Primary Care Unavailable Marcanthony, Joelle Admitting Unavailable Marcanthony, Joelle Admitting Unavailable Marcanthony, Joelle Attending Unavailable Marcanthony, Joelle Referring Unavailable Ray, Moody Primary Care Unavailable Marcanthony, Joelle Consulting Unavailable Marcanthony, Joelle Admitting Unavailable Marcanthony, Joelle Attending Unavailable Marcanthony, Joelle Referring Unavailable Ray, Moody Primary Care Unavailable Marcanthony, Joelle Consulting Unavailable Marcanthony, Joelle Attending Unavailable Marcanthony, Joelle Referring Unavailable Ray, Moody Primary Care Unavailable Marcanthony, Joelle Consulting Unavailable Silvia Levine Attending Unavailable Ray, Moody Referring Unavailable Ray, Moody Primary Care Unavailable Carlton Vaughn Attending Unavailable Marcanthony, oJelle Attending Unavailable JuliannaSilvia Attending Unavailable Ray, Moody Referring Unavailable Marcanthony, Joelle Attending Unavailable Ray, Moody Referring Unavailable Marcanthony, Joelle Attending Unavailable Marcanthony, Joelle Attending Unavailable Marcanthony, Joelle Referring Unavailable Marcanthony, Joelle Attending Unavailable Marcanthony, Joelle Referring Unavailable Ray, Moody Primary Care Unavailable Marcanthony, Joelle Attending Unavailable Ray, Moody Primary Care Unavailable Marcanthony, Joelle Attending Unavailable Ray, Moody Primary Care Unavailable Marcanthony, Joelle Attending Unavailable Ray, Moody Referring Unavailable Ray, Moody Primary Care Unavailable Marcanthony, Joelle Attending Unavailable Ray, Moody Primary Care Unavailable Marcanthony, Joelle Attending Unavailable Ray, Moody Referring Unavailable Ray, Moody Primary Care Unavailable Marcanthony, Joelle Attending Unavailable Ray, Moody Primary Care Unavailable Marcanthony, Joelle Referring Unavailable Marcanthony, Joelle Attending Unavailable Ary, Moody Referring Unavailable Ray, Moody Primary Care Unavailable Marcanthony, Joelle Attending Unavailable Ray, Moody Referring Unavailable Marcanthony, Joelle Attending Unavailable Ray, Moody Referring Unavailable Marcanthony, Joelle Attending Unavailable Ray, Moody Referring Unavailable Marcanthony, Joelle Attending Unavailable Marcanthony, Joelle Referring Unavailable Ray, Moody Primary Care Unavailable Julianna, Silvia Attending Unavailable Ray, Moody Referring Unavailable Marcanthony, Joelle Attending Unavailable Ray, Moody Referring Unavailable PROBLEMS PROBLEMS DATE TYPE CONDITION / CODE ATTENDING STATUS SOURCE 11/07/2018 Unknown R10.9 - Unspecified Silvia Levine Active [facility] abdominal pain / Community R10.9(ICD-10) Hospital Repository 10/23/2018 Unknown O16.9 - Unspecified Marcanthony, Active [place] maternal [facility] hypertension, [facility] unspecified Repository trimester / O16.9(ICD-10) 10/19/2018 Unknown O36.8190 - Marcanthony, Active [facility] Decreased [facility] movements, [facility] unspecified Repository trimester, not applicable or unspecified / O36.8190(ICD-10) 10/14/2018 Unknown Z34.90 - Encounter Marcanthony, Active [place] for supervision of [facility] normal , Hospital unspecified, Repository unspecified trimester / Z34.90(ICD-10) 10/13/2018 Unknown O24.410 - Marcanthony, Active [place] Gestational [facility] diabetes mellitus Hospital in , diet Repository controlled / O24.410(ICD-10) 10/13/2018 Unknown Z3A.34 - 34 weeks Marcanthony, Active [place] gestation of [facility] / Hospital Z3A.34(ICD-10) Repository 10/13/2018 Unknown O99.213 - Obesity Marcanthony, Active [facility] complicating [facility] , third Hospital trimester / Repository O99.213(ICD-10) 10/13/2018 Unknown O09.93 - Marcanthony, Active [place] Supervision of high [facility] risk , Hospital unspecified, third Repository trimester / O09.93(ICD-10) 10/13/2018 Unknown Z97.5 - Presence of Marcanthony, Active [facility] (intrauterine) [facility] contraceptive Hospital device / Repository Z97.5(ICD-10) 09/15/2018 Unknown Z3A.32 - 32 weeks Marcanthony, Active [place] gestation of [facility] / Hospital Z3A.32(ICD-10) Repository 09/15/2018 Unknown Z34.83 - Encounter Marcanthony, Active [facility] for supervision of [facility] normal Hospital , third Repository trimester / Z34.83(ICD-10) 08/18/2018 Unknown Z68.33 - Body mass Marcanthony, Active [facility] index (BMI) [facility] 33.0-33.9, adult / Hospital Z68.33(ICD-10) Repository 08/18/2018 Unknown Z34.82 - Encounter Marcanthony, Active [facility] for supervision of [facility] normal Hospital , second Repository trimester / Z34.82(ICD-10) 08/18/2018 Unknown Z3A.26 - 26 weeks Marcanthony, Active [place] gestation of [facility] / Hospital Z3A.26(ICD-10) Repository 08/18/2018 Unknown Z23 - Encounter for Marcanthony, Active [facility] immunization / [facility] Z23(ICD-10) Hospital Repository 04/28/2018 Unknown Z34.81 - Encounter Marcanthony, Active [facility] for supervision of [facility] other normal Hospital , first Repository trimester / Z34.81(ICD-10) 05/17/2018 Unknown O24.419 - Marcanthony, Active [place] Gestational [facility] diabetes mellitus [facility] in , Repository unspecified control / O24.419(ICD-10) 02/01/2018 Unknown Z30.432 - Encounter Silvia Levine Active [place] for removal of [facility] Hospital contraceptive Repository device / Z30.432(ICD-10) PROCEDURES PROCEDURES No Procedure Records FoundRESULTS RESULTS EMERGENCY DEPARTMENT Observed: 11/07/2018 Status: F Source: [facility] SUMMARY 8:57 PM [facility] RE[facility] Medical Records Department [address] [place] [address] Emergency Department Summary 11/07/18 1558 MR#: [id number] Acct: [id number] Name: JOE BHAGAT Rep #: [id number] : 1990 28 From: Carlton Vaughn DO PCP: Moody Knowles DO Status: REG ER - ER Visit Summary Date of Service: 11/07/18 Chief Complaint: Abdominal pain History of Present Illness: The patient is a 28 F who presents with abdominal pain that has been intermittent since yesterday. Patient states the pain lasts approximately 2 hours. Patient describes the pain as dull. Patient states the pain is worse over the right lower quadrant but also is over the left lower quadrant. Patient admits to some nausea but denies any vomiting or hematemesis. Patient denies any diarrhea, melena, or hematochezia. Patient denies any dysuria or hematuria. Patient had recent vaginal delivery but denies any vaginal bleeding or discharge. She does admit to some back pain with her abdominal pain. Physical Examination: Vital signs are stable. Patient is afebrile. Patient is in no acute distress. Oral mucosa is pink and moist. Neck is supple. Trachea is midline. There is no JVD noted. Heart was regular rate and rhythm. Lungs are clear and equal bilateral. Abdomen is soft. Bowel sounds are normal. There is mild right lower quadrant tenderness. There is no guarding noted. Skin is warm dry. Cranial nerves II through XII are intact. There are no focal motor or sensory deficits noted. Deep tendon reflexes were 2+/4 bilaterally. The remaining physical exam is within normal limits. Test Results: CBC, comprehensive metabolic profile, and urinalysis were obtained and were all within normal limits. CT scan of the abdomen and pelvis was obtained. The appendix was visualized and is normal. There is some inflammation of the round ligament on the right. There is no other acute intra-abdominal pathology noted. Emergency Department Course and Treatment: Patient was treated with hydralazine for her blood pressure here. Patient felt better on reevaluation. Case was discussed with Dr. Mcdonald. She was given the results of the lab work and CT. She will follow-up with the patient in her office. Patient was instructed to follow-up with Dr. Mcdonald in 2-3 days. Patient understood and is agreeable with the plan. All questions were answered. Disposition: Discharge home Impression: Right lower quadrant abdominal pain This note was generated with [employer] dictation software. It may contain incorrect words, spelling, and punctuation that were not noted in review of the chart prior to signing ED Disposition - Plan for ED Patient: Disposition: Home or Assisted Living Chief Complaint: Abd Pain Diagnosis: Right lower quadrant abdominal pain Instructions: ED Abdominal Pain Unkn Cause Prescriptions: Ibuprofen [Motrin] 800 mg PO TID PRN PRN #20 tab PRN Reason: Pain Referrals: Moody Ray DO [Primary Care Provider] - Additional Instructions: Take the ibuprofen as needed for pain. Follow-up with Dr. Mcdonald in 2-3 days. What to do if you have Problems For any increased pain, shortness of breath, bleeding, nausea or vomiting, chest pain, or any unexpected problems, contact your Primary Care Provider. Call [facility] ([phone]) or report to the closest Emergency Room. Call 911 if necessary. 11/07/182056 <Electronically signed by Carlton Vaughn DO> Date Carlton Vaughn DO Cosigner Signature (If Indicated): Date CC: Moody Knowles DO ABDOMEN/PELVIS WITH Observed: 11/07/2018 Status: F Source: [place] CONTRAST 5:37 PM [facility] Imaging Services [address] [place] [address] Abdomen/Pelvis WITH Contrast MR#: [id number] Acct: [id number] Name: JOE BHAGAT Rep #: [id number] : 1990 F 28 From: Deepika Maravilla MD PCP: Moody Knowles DO Status: REG ER Study: Abdomen/Pelvis WITH Contrast Date of Exam: 11/07/18 Exam# [id number] Ordering Dr: Carlton Vaughn DO STUDY: CT ABDOMEN AND PELVIS WITH CONTRAST REASON FOR EXAM: Female, 28 years old. Right lower quadrant abdominal pain. The patient is hypertensive and is recently . RADIATION DOSAGE (If Supplied By Facility): CTDIvol = ( 14.32 ) mGy, DLP = ( 1195.31 ) mGycm TECHNIQUE: Transaxial images were obtained from the dome of the diaphragm to the symphysis pubis without oral contrast. 100mL ml of Isovue 300 contrast was administered. Sagittal and coronal images were reconstructed. Individualized dose optimization techniques were used for this CT. COMPARISON: Prior comparable comparison studies are not available for review at this time. FINDINGS: The visualized lung bases are unremarkable. The visualized portions of the heart are within normal limits. Normal liver. Normal gallbladder and extrahepatic biliary system. Normal spleen. Normal pancreas. Normal bilateral adrenal glands. Normal right kidney. There is a tiny nonobstructing calculus in upper pole left kidney measuring about 2 mm in size. There is no evidence for hydronephrosis, hydroureter or radiopaque ureteral calculus. Normal visualized stomach. There is no evidence for dilated bowel, ascites or pneumoperitoneum. The small bowel has a grossly normal appearance. Stool is visible throughout the colon with scattered colonic diverticula. The appendix is visualized and appears normal. There is some asymmetry in the appearance of the right round ligament being larger than left. This could be the result of acute inflammation. Normal abdominal aorta. There is venous distention of the inferior vena cava (IVC). Normal retroperitoneum. The urinary bladder is very distended. The uterus is mildly enlarged consistent with recent state. Normal abdominal wall. Normal osseous structures. CT/Abdomen/Pelvis WITH Contrast IMPRESSION: Asymmetry in the appearance of the round ligaments, right larger than left. This could be the result of acute inflammation of the right- sided round ligament. Electronically Signed: Deepika Maravilla MD at 20:19 EST , Service support , CC: Carlton Vaughn DO; Moody Knowles DO Senior Designer: Signed URINALYSIS, COMPLETE Collected: 11/07/2018 Status: F Source: [place] 5:25 PM [facility] Order Comment: How was Urine Obtained? CLEAN CATCH TYPE CODE TESTS RESULT OUT OF RANGE REFERENCE UNITS LAB L400.3000 Yellow COLOR Normal Yellow LAB L400.3050 Clear Normal CLARITY Clear LAB L400.3200 Normal mg/dl Normal GLUCOSE, UR Normal LAB L400.3300 Negative mg/dL Normal BILIRUBIN URINE Negative LAB L400.3400 Negative mg/dl Normal KETONE UR Negative LAB L400.3465 1.002-1.030 Normal SP.GR. DIPSTX 1.010 LAB L400.3550 5.0 - 8.0 pH UR Normal 7.0 LAB L400.3600 Negative mg/dl PROT Normal DIPSTX Negative LAB L400.3700 Normal mg/dl Normal UROBILI Normal LAB L400.3750 Negative Normal NITRITE UR Negative LAB L400.3780 Negative /ul High 10 OCCULT BLOOD-UR LAB L400.3800 Negative /ul LEUK Normal ESTERASE Negative LAB L400.4050 0-5 /hpf WBC 0 Normal SEEN LAB L400.4100 0-5 /hpf 0 Normal RBC-UA SEEN LAB L400.4150 5-10 /hpf SQUAM 0 Normal EPI SEEN LAB L400.4300 None Seen /hpf 0 Normal BACTERIA SEEN LAB L400.4350 <or=2+ /hpf 0 Normal MUCUS, URINE SEEN Performed By: #### L400.0001 #### [facility] [address] [place], [address] COMPREHENSIVE METABOLIC Collected: 11/07/2018 Status: F Source: [place] DONOVAN 4:10 PM [facility] TYPE CODE TESTS RESULT OUT OF RANGE REFERENCE UNITS LAB L501.0100 74-106 mg/dL Normal GLU 82 Result Comment: Please note revised GLUCOSE reference range effective 2017. LAB L501.1000 7-18 mg/dL Normal BUN 10 LAB L501.1100 0.55-1.02 mg/dL Normal CREAT,SERUM 0.67 Result Comment: The validity of the calculated GFR AND GFRAA in patients over 70 years has not been determined. Clinical correlation is essential. LAB L501.1110 >60 mL/min Normal EST GFR 111 Result Comment: Non- GFR Calc LAB L501.1115 >60 mL/min Normal EST GFR - AA 134 Result Comment: GFR Calc LAB L501.1255 ml/min Normal Estimated CRCL 115.98 LAB L501.1300 10-20 RATIO BUN/CRE Normal 15.0 LAB L501.1500 6.4-8. g/dL 2 T PROT Normal 7.3 LAB L501.1800 3.2-5. g/dL 0 ALB Normal 3.3 LAB L501.1950 2.2-4. g/dL 2 GLOB Normal 4.0 LAB L501.2000 0.9-2. RATIO Low 4 A/G 0.8 LAB L501.2200 8.5-10 mg/dL .1 CA Normal 8.9 LAB L501.4100 15-37 U/L AST Normal 15 LAB L501.4305 45-117 U/L ALK P Normal 109 LAB L501.4405 13-56 U/L ALT Normal 24 LAB L501.4600 0.20-1 mg/dL .00 T BILI Normal 0.20 LAB L501.5300 136-14 mmol/L 5 NA Normal 145 LAB L501.5600 3.5-5. mmol/L 1 K Normal 4.0 LAB L501.5900 98-107 mmol/L High CL 110 LAB L501.6100 21.0-3 mmol/L 2.0 CO2 Normal 27.0 LAB L501.6200 5-15 GAP Normal 8 Performed By: #### L500.4050 #### [facility] [address] [place], [address] CBC W/DIFF, AUTOMATED Collected: 11/07/2018 Status: F Source: [place] 4:10 PM [facility] TYPE CODE TESTS RESULT OUT OF RANGE REFERENCE UNITS LAB L100.1000 4.4-11.0 K/mm3 Normal WBC 10.8 LAB L100.1200 4.2-5.4 M/mm3 Normal RBC 4.88 LAB L100.1300 12.0-15.0 g/dl Normal HGB 14.3 LAB L100.1400 37-47 % Normal HCT 43.1 LAB L100.1500 81-99 fL Normal MCV 88.3 LAB L100.1600 27.0-32.0 pg Normal MCH 29.3 LAB L100.1700 32-36 g/gl Normal MCHC 33.2 LAB L100.1810 11.6-14.6 % Normal RDW CV 12.1 LAB L100.1820 35.1-43.9 fl Normal RDW SD 38.5 LAB L100.1900 150-450 K/mm3 Normal PLT 379 LAB L100.2000 6.2-12.0 fl Normal MPV 8.5 LAB L100.2100 47-70 % Normal NEUT% 65.7 LAB L100.2200 19-41 % Normal LY% 24.4 LAB L100.2300 0-10 % Normal MONO% 6.7 LAB L100.2400 0-5 % Normal EO% 2.5 LAB L100.2500 0-1 % Normal BASO% 0.3 LAB L100.2550 0.0-0.9 % Normal IM GRAN % 0.400 Result Comment: IG% - Immature Granulocytes (promyelocytes, myelocytes and metamyelocytes) > 1% indicates that a LEFT SHIFT is Present. LAB L100.2620 2.0-7.7 X10 3/uL Normal Absolute Neut 7.1 LAB L100.2720 0.83-4.51 X10 3/ul Normal Absolute Lymph 2.63 Performed By: #### L100.0100 #### [facility] [address], [id number] REPORTING DEVELOPER OFFICE VISIT Observed: 11/07/2018 Status: F Source: [place] REPORT 3:52 PM [facility] Emergency Department [address] [place] [address] OFFICE VISIT Date of Service: 11/07/18 MR#: [id number] Acct: [id number] Name: JOE BHAGAT Rep #: [id number] : 1990 Provider: OTTO Levine Age/Sex: 28/F [place] [facility] [place]: Signed Intake Vital Signs11/07/18 Body Mass Index (BMI) 38.2 11/07/18 Height 5 ft 6 in Intake Visit Reasons: 2 WK POST W/FEVER Precision Assembly Inspector Required: No Is patient in pain?: Yes Allergies No Known Allergies Allergy (Verified 11/07/18 15:41) Medications vitamin,calcium,veaifsjt-achr-fzjgh acid tablet 1 tab PO QDAY 03/31/18 [History Confirmed 11/07/18] acetaminophen 325 mg tablet 325 mg PO Q6H PRN 11/07/18 [History Confirmed 11/07/18] : Yes PFSH Social History Smoking Status: Never smoker alcohol intake: never substance use type: does not use caffeine: Yes frequency: 3-4 times per week seatbelt use: always do you feel safe at home: Yes additional social history: Lion Wilson Patient works at [employer] Pregancy History 3 Elective abortions Hx Para 3 Spontaneous abortions Past Pregnancies Del. DatName GA/WeeksOutcome Route [facility] Loca[facility]FO[facility] e ht en th ia tn Unknown 2008 Add live birNSVD 7lbs 9 o [facility] [place] [facility] - ful unces l term Delivery Date: 10/24/18 On 11/07/18 @ 14:54 Jael Bethea GHTN; GDMA Delivery Date: No notes to display Delivery Date: No notes to display Depression Screen PHQ-2/9 If score is 2 or greater, continue Source: Developed by Drs. Lazaro Angel, Apolonia Winter, Avelino Light and colleagues, with an educational maurice from [employer]. Scoring: Total Score Depression Severity Action 1-4 Minimal depression No action needed 5-9 Mild depression Repeat PHQ-9 at follow up 10-14 Moderate depression Make tx plan,consider counseling, fup, prescription Post HPI 2 WK POST W/FEVER: Details: JOE BHAGAT is a 28 year old who presents for pelvic pain and fever 101 degrees today. States pain worse lower right. States minimal vaginal bleeding, no odor or vaginal pain. She is 2 weeks pp . She is . She denies pain or issues with breasts. ROS Const Reports as per HPI GI Denies nausea, Denies vomiting, Denies change in bowel habits Exam Const General: cooperative, ill appearing (pale) Orientation: oriented x3 Eyes General: appearance normal, both eyes and all related structures GI Palpation: soft, guarding, no masses, tender at McBurney's point External Female Exam: normal external appearance, normal appearance of the urethra Urethra: normal appearance of the urethra Speculum Exam - Vagina: normal appearance of the vagina (gaping/postpartem, normal small amount lochia) Speculum Exam - Cervix: normal appearance of the cervix Bimanual Exam- Vagina AND Uterus: uterine size normal, other, uterus tender (minimally. More tender right adnexa) Bimanual Exam- Adnexa, other: no adnexal masses, adnexal tenderness on the right Assessment AND Plan Problems 1. Right lower quadrant abdominal pain R10.[address] and CBC. Due to insurance patient had to be sent to ED to rule out appendicitis. Orders Orders: Coding Level of Care Code Off vis,est,level 3 Diagnoses Right lower quadrant abdominal pain R10.31 11/07/18 1552 <Electronically signed by Silvia SIMPSON> Date Silvia SIMPSON Cosigner Signature: Date (if applicable) CC: OFFICE VISIT REPORT Observed: 10/26/2018 Status: F Source: [place] 4:54 AM [place] [address] [place] [address] OFFICE VISIT Date of Service: 10/23/18 MR#: [id number] Acct: [id number] Patient: JOE BHAGAT Rep #: [id number] : 1990 Provider: Joelle Mcdonald MD Age/Sex: 28/F [place] [facility] [place]: Signed Intake Vital Signs10/23/18 Blood Pressure 150/104 H 10/23/18 Blood Pressure 146/90 H Intake Visit Reasons: BP CHECK PER SM Chief Complaint: est ob, DFM Allergies No Known Allergies Allergy (Verified 10/23/18 22:54) Medications vitamin,calcium,tiiquatc-kaby-tnrym acid tablet 1 tab PO QDAY 03/31/18 [History Confirmed 10/23/18] blood-glucose meter See Dose Instructions .ROUTE .MEDSUPPLY #1 ea 04/11/18 [Rx Confirmed 10/19/18] Blood Sugar Diagnostic [Contour Test Strip] 0 .ROUTE .MEDSUPPLY 10/23/18 [History] Assessment AND Plan Orders Orders: Medications Discontinued: blood sugar diagnostic strips (Advanced Glucose Meter Test Strips)As directed 100 ea 12RF Discontinued Reason: Order edited - Discontinuing original or elizabeth 10/26/18 0454 <Electronically signed by Joelle Mcdonald MD> Date Joelle Mcdonald MD Cosign Signature: Date (if applicable) CC: REPORTING DEVELOPER OFFICE VISIT Observed: 10/26/2018 Status: F Source: [place] REPORT 4:42 AM [facility] [address] [place] [address] OFFICE VISIT Date of Service: 10/19/18 MR#: [id number] Acct: [id number] Name: JOE BHAGAT Rep #: [id number] : 1990 Provider: Joelle Mcdonald MD Age/Sex: 28/F [place] [facility] [place]: Signed Intake Vital Signs10/19/18 Blood Pressure 150/102 H 10/19/18 Height 5 ft 6 in 10/19/18 Blood Pressure 138/90 H Intake Visit Reasons: 37 weeks-No movements Chief Complaint: est ob, DFM Precision Assembly Inspector Required: No Is patient in pain?: No Allergies No Known Allergies Allergy (Verified 10/23/18 22:54) Medications vitamin,calcium,rhmsertu-uzbf-wnobw acid tablet 1 tab PO QDAY 03/31/18 [History Confirmed 10/23/18] blood-glucose meter See Dose Instructions .ROUTE .MEDSUPPLY #1 ea 04/11/18 [Rx Confirmed 10/19/18] Blood Sugar Diagnostic [Contour Test Strip] 0 .ROUTE .MEDSUPPLY 10/23/18 [History] Last Menstral Period: 01/28/18 Zika: Zika virus screening: Negative : No PFSH PFSH Social History Smoking Status: Never smoker alcohol intake: never substance use type: does not use caffeine: Yes frequency: 3-4 times per week seatbelt use: always do you feel safe at home: Yes additional social history: Lion Wilson Patient works at [employer] Pregancy History 3 Elective abortions Hx Para 2 Spontaneous abortions Past Pregnancies Del. DatName GA/WeeksOutcome Route [facility] LocaProviderFOB e ht en ia tn Unknown 2008 Add live birNSVD 7lbs 9 o [place] th - ful unces l term Delivery Date: 10/24/18 On 10/25/18 @ 09:52 Saida Daigle GHTN; GDMA Delivery Date: No notes to display Delivery Date: No notes to display HPI 37 weeks-No movements: Details: JOE BHAGAT is a 28 year old who presents for routine OB visit. ACOG First Trimester First Trimester: Discussed Diagnostics Diagnostics Labs Blood Type O POSITIVE 10/23/18 Antibody Screen NEGATIVE 10/23/18 Hct 36.5 % (37-47) L 10/23/18 Hgb 12.5 g/dl (12.0-15.0) 10/23/18 Obstetrics Ultrasound 10/16/18 Group B Strep DNA Negative (Negative) 10/13/18 Rhogam given: No 10/25/18 Pap Smear Negative 09/16/16 Rubella IgG Antibody 246.3 IU/mL 03/31/18 RPR NONREACTIVE (NONREACTIVE) 03/31/18 Hep Bs Antigen Negative (Negative) 03/31/18 Chlam trachomat DNA PCR Negative (Negative) 03/31/18 N.gonorrhoeae DNA (PCR) Negative (Negative) 03/31/18 Glucose 1 Hr 50 gm 160 mg/dL (70-140) H 03/31/18 Details: HIV: Urine Culture: Sequential Screen: NIPT Screen: Office Procedures OB NST Non-Stress Test Indications for Monitoring: Yes diabetes Heart Rate Baseline: 140 Heart Rate Variability: moderate Movement: Present Heart Rate Accelerations: Present Decelerations: Absent Contractions: Absent Impression: Yes Reactive Non-Stress Test Category 1 Results [id number] Office Urine Glucose Negative Last Edit by Chikis Velazquez on 10/19/18 10:27 Office Urine Protein Negative Last Edit by Chikis Velazquez on 10/19/18 10:27 Assessment AND Plan Problems 1. Supervision of high risk in third trimester O09.93 PRR JENNIFER 11/06/18 Thiago Morel Destinee 2. Diet controlled gestational diabetes mellitus in third trimester O24.410 education, testing recommended 4 times daily, plan 36 week growth US Plan nst reactive movement and labor precautions reviewed. ACOG trimester education reviewed and updated. see problem list details for updated plan management information and see below for orders placed at this visit. GA appropriate handout given. Orders Orders: Medications Discontinued: blood sugar diagnostic strips (Advanced Glucose Meter Test Strips)As directed 100 ea 12RF Discontinued Reason: Order edited - Discontinuing original or elizabeth Coding Level of Care Code OB Routine Diagnoses Supervision of high risk in third trimester O09.93 Diet controlled gestational diabetes mellitus in third trimester O24.410 Additional Codes Non-Stress Test (44276) 10/26/18 0442 <Electronically signed by Joelle Mcdonald MD> Date Joelle Mcdonald MD Cosigner Signature: Date (if applicable) CC: DISCHARGE INSTRUCTION Observed: 10/25/2018 Status: F Source: [place] 8:59 AM [facility] Medical Records Department [address] [place] [address] Instructions for Home/Discharge Instructions 10/25/18 0858 MR#: [id number] Acct: [id number] Name: JOE BHAGAT Rep #: [id number] : 1990 28 From: Silvia Levine BUFFING MACHINE OPERATOR-C PCP: Moody Knowles DO Status: ADM IN Additional Instructions: If you experience any of the following, contact your healthcare provider. * Bleeding that soaks a pad every hour for 2 hours * Fever 100.4 or higher * Unrelieved incision or abdominal pain * Swelling, redness, discharge or bleeding from your incision or episiotomy site * Your incision begins to separate * Problems urinating (including inability to urinate or burning while urinating). * Visual changes * Severe headache * Flu-like symptoms * Pain or redness in one of both of your breasts * Pain, warmth, tenderness or swelling in your legs, especially the calf area * Frequent nausea and vomiting * Symptoms of depression or anxiety If you experience any of the following, call 911 or go to the nearest Emergency Room. * Chest pain * Problems breathing * Seizure activity * Partial or complete paralysis of a body part, slurred speech, weakness or drooping of the face, or a sudden inability to walk or hold your balance Allergies/Adverse Reactions: Allergies No Known Allergies Allergy (Verified 10/23/18 22:54) Medications to take at Discharge vitamin,calcium,padltznp-ugdz-rcrym acid tablet 1 tab PO QDAY 03/31/18 blood-glucose meter See Dose Instructions .ROUTE .MEDSUPPLY #1 ea 04/11/18 Blood Sugar Diagnostic [Contour Test Strip] 0 .ROUTE .MEDSUPPLY 10/23/18 Primary Care Physician: Moody Ray DO [Primary Care Provider] - Test Results: Test results from this visit will be discussed in further detail at your follow-up appointment, if applicable. 10/25/18 0859 <Electronically signed by Silvia DE LA CRUZC> Date Silvia SIMPSON CC: Moody Knowles DO Signed BEDSIDE GLUCOSE Collected: 10/25/2018 Status: F Source: [place] 6:36 AM [facility] TYPE CODE TESTS RESULT OUT OF RANGE REFERENCE UNITS LAB L501.080 70-110 mg/dL Normal BEDSIDE GLU 96 Result Comment: MANAGEMENT OF PATIENT CARE PER NURSING PROTOCOL Performed By: #### L501.080 #### [facility] Point of Care [address] [place], [place] [address] BEDSIDE GLUCOSE Collected: 10/25/2018 Status: F Source: [place] 5:57 AM [facility] TYPE CODE TESTS RESULT OUT OF REFERENCE UNITS RANGE LAB L501.080 70-110 mg/dL Low BEDSIDE GLU 68 Result Comment: MANAGEMENT OF PATIENT CARE PER NURSING PROTOCOL Performed By: #### L501.080 #### [facility] Point of Care [address] [place] [address] OPERATIVE REPORT Observed: 10/25/2018 Status: F Source: [place] 4:47 AM [facility] Medical Records Department [address] [place] [address] Operative Report 10/25/18 0445 MR#: [id number] Acct: [id number] Name: OJE BHAGAT Tal Rep #: [id number] : 1990 28 From: Joelle Mcdonald MD PCP: Moody Knowles DO Status: ADM IN Y Location: [id number] - Problem List (1) Gestational hypertension Status: Acute (2) IUD contraception Status: Acute Comment: Preauth. Hector for insertion at delivery (3) Supervision of high risk in third trimester Status: Acute Comment: PRR JENNIFER 11/06/18 PC Thiago Strickland (4) Obesity affecting Status: Acute Qualifiers: Comment: first trimester glucola abnormal, diet/exercise in discussed (5) Status: Acute Qualifiers: Comment: genetic, carrier, and NTD declned. anatomy scan- (6) Diet controlled gestational diabetes mellitus in third trimester Status: Acute Comment: education, testing recommended 4 times daily, plan 36 week growth US Vaginal Delivery Maternal Presentation: Medically Indicated Induction iol 38w ghtn Method of Induction: Pitocin, Cytotec Medical Reason for Induction: Gestational Hypertension Amniotic Membrane Rupture Type: Artificial Amniotic Fluid Description: Clear Final JENNIFER: 11/06/18 Gestational age: 38 Weeks and 1 Days Date of Procedure: 10/24/18 Pre-Operative Diagnosis: iol ghtn Post-Operative Diagnosis: same Surgery/ Procedure Performed: Spontaneous Vaginal Delivery Type of Anesthesia: Epidural Description of Procedure: Patient began pushing and delivered the head in the DONNA presentation. The head was delivered atraumatically. The anterior and posterior shoulders delivered without complication followed by the rest of the infant and the was placed on the maternal abdomen. Delayed cord clamping was employed for approximately 60 seconds. Cord was clamped and cut and gentle traction was applied to the cord and the placenta delivered spontaneously immediately following it was noted to be intact with three-vessel cord. The perineum and vagina were inspected and noted to have no laceration. EBL was 200 cc. Patient and tolerated delivery well. Presentation: DONNA Placental Delivery Description: Spontaneous Placenta Disposition: [facility] Cord Vessel Description: 3 Vessels Cord Entanglement: None Estimated Blood Loss: 200 Infant A gender: Female Episiotomy Description: None Laceration: None Medications given after delivery: IV Pitocin Complications: None 10/25/18 0447 <Electronically signed by Joelle Mcdonald MD> Date Joelle Mcdonald MD CC: Moody Knowles DO; Joelle Mcdonald MD Signed BEDSIDE GLUCOSE Collected: 10/24/2018 Status: F Source: [place] 2:34 PM [facility] TYPE CODE TESTS RESULT OUT OF RANGE REFERENCE UNITS LAB L501.080 70-110 mg/dL Normal BEDSIDE GLU 92 Result Comment: MANAGEMENT OF PATIENT CARE PER NURSING PROTOCOL Performed By: #### L501.080 #### [facility] Point of Care [address] [place] [address] BEDSIDE GLUCOSE Collected: 10/24/2018 Status: F Source: [place] 12:50 PM [facility] TYPE CODE TESTS RESULT OUT OF RANGE REFERENCE UNITS LAB L501.080 70-110 mg/dL Normal BEDSIDE GLU 70 Result Comment: MANAGEMENT OF PATIENT CARE PER NURSING PROTOCOL Performed By: #### L501.080 #### [facility] Point of Care [address] [place] [address] BEDSIDE GLUCOSE Collected: 10/24/2018 Status: F Source: [place] 11:43 AM [facility] TYPE CODE TESTS RESULT OUT OF REFERENCE UNITS RANGE LAB L501.080 70-110 mg/dL Low BEDSIDE GLU 66 Result Comment: MANAGEMENT OF PATIENT CARE PER NURSING PROTOCOL Performed By: #### L501.080 #### [facility] Point of Care [address] [place] [address] BEDSIDE GLUCOSE Collected: 10/24/2018 Status: F Source: [place] 10:41 AM [facility] TYPE CODE TESTS RESULT OUT OF RANGE REFERENCE UNITS LAB L501.080 70-110 mg/dL Normal BEDSIDE GLU 75 Result Comment: MANAGEMENT OF PATIENT CARE PER NURSING PROTOCOL Performed By: #### L501.080 #### [facility] Point of Care [address] [place] [address] HISTORY AND PHYSICAL Observed: 10/24/2018 Status: F Source: [facility] EXAM 8:29 AM [facility] Medical Records Department [address] [place] [address] History and Physical 10/24/18 0825 MR#: [id number] Acct: [id number] Name: RORY BHAGATRolando Parada Rep #: [id number] : 1990 28 From: Joelle Mcdonald MD PCP: Moody Knowles DO Status: ADM IN Y Location: TG160-2 - Problem List (1) Gestational hypertension Status: Acute (2) IUD contraception Status: Acute Comment: Preauth. Hector for insertion at delivery (3) Supervision of high risk in third trimester Status: Acute Comment: PRR JENNIFER 11/06/18 PC Thiago Strickland Destinee (4) Obesity affecting Status: Acute Qualifiers: Comment: first trimester glucola abnormal, diet/exercise in discussed (5) Status: Acute Qualifiers: Comment: genetic, carrier, and NTD declned. anatomy scan- (6) Diet controlled gestational diabetes mellitus in third trimester Status: Acute Comment: education, testing recommended 4 times daily, plan 36 week growth US History Date of Admission: 10/23/18 Final JENNIFER: 11/06/18 Gestational age: 38 Weeks and 1 Days History of this : This is a 28 year-old, at 38 weeks gestational age presents with GHTN and elevated bps mild range some intermitent david. she has had a complicated by GDMA1. she ddenies any vb lof admits good fm. Allergies No Known Allergies Allergy (Verified 10/23/18 22:54) Home Medications: Home Medications vitamin,calcium,zmlypkqn-hjvt-cupxv acid tablet 1 tab PO QDAY 03/31/18 blood-glucose meter See Dose Instructions .ROUTE .MEDSUPPLY #1 ea 04/11/18 Blood Sugar Diagnostic [Contour Test Strip] 0 .ROUTE .MEDSUPPLY 10/23/18 Smoking Status: Never smoker Alcohol: None Number of Fetus(es): 1 Heart Tracin moderate variability reactive no decelerations category I tracing\ [place]: regular History Past Pregnancies: Past Pregnancies2 previous term uncomplicated Labs: Mom's Labs AND Results WBC 11.2 H RBC 4.14 L Hgb 12.5 Hct 36.5 L WBC RBC Hgb Hct MCV MCH MCHC RDW RDW Differential Plt Count MPV POC Glucose 72 Blood Type Antibody Screen Course Did the patient receive Yes care? Labs Blood Type: O Current Obstetrical History Gestational Diabetes No: gestational dm diet controlled Incompetent Cervix No Infertility No IUGR No Macrosomia No Hypertension/Pre-eclampsia Yes Placenta Previa/Abruption No PTL/PROM No Uterine anomaly No Oligohydramnios No Polyhydramnios No Multiple gestation No Past Medical History Asthma No Diabetes No Hypertension No Heart disease No Mitral valve prolapse No Neurologic/Seizure disorder/ Yes Migraines Kidney disease No Liver disease No Varicosities No Clotting disorders/Hx of DVT No Thyroid Dysfunction No Other medical diseases No Psychiatric disorders No Major trauma No Abnormal PAP smear No Sleep apnea No Mammogram in the last 2 years No Social History Marital Status: Alleged father Destinee Wilkerson Smoking No Smoking Status Never smoker Expected Infant Delivery Method: Spontaneous Vaginal Review of Systems Constitutional: Denies: Fever, Malaise Eyes: Reports: Vision Change. Denies: Blurred vision HEENT: Reports: Head Aches, Visual Changes Cardiovascular: Denies: Chest Pain, Palpitations Respiratory: Denies: Cough, Shortness of Breath, Wheezing Gastrointestinal: Denies: Abdominal Pain, Diarrhea, Nausea, Vomiting Genitourinary: Denies: Dysuria, Hematuria Musculoskeletal: Denies: Joint Pain, Muscle pain Skin: Denies: Lesions, Rash Neurological: Reports: Headaches. Denies: Blurred vision, Focal weakness Psychiatric: Denies: Anxiety, Depression Endocrine: Denies: Heat/ Cold Intolerance Hematologic/ Lymphatic: Denies: Easy Bruising, Easy Bleeding Physical Exam General: Alert, Cooperative, No apparent distress HEENT: Atraumatic, Normocephalic. Negative for: Thyromegaly, Lymphadenopathy Cardiovascular: Regular rate Lungs: Normal air movement Abdomen: Soft, Non Tender, Gravid Neurological: Deep Tendon Reflexes 2+/4 and Symmetrical, Neuro grossly intact. Negative for: Clonus WORKERS COMPENSATION SPECIALIST: Normal external genitalia. Negative for: Vulvar lesions Estimated gestational size: Appropriate for gestational size Presentation: Cephalic Cervix Dilation (cm): 2 Assessment/Plan All Active Problems (Last Reviewed 10/19/18 @ 10:25 by Chikis Velazquez) Gestational hypertension (Acute) IUD contraception (Acute) Supervision of high risk in third trimester (Acute) Obesity affecting (Acute) (Acute) Diet controlled gestational diabetes mellitus in third trimester (Acute) BMI 33.0-33.9,adult (Resolved) Supervision of normal (Resolved) This is a 28 year-old, , at 38 weeks gestational age presents with GHTN for IOL Patient presents IOL, plan expectant management for , pitocin/AROM after cytotec for cervical ripening. Pain management: plans epidural. GBS negative. Management of any complications: diabetes- q 4 hours BS check latent phase and q 1 hr in active phase labor I have reviewed the [facility] and made any clinically relevant updates. 10/24/18 9435 <Electronically signed by Joelle Mcdonald MD> Date Joelle Mcdonald MD [facility] Signature: Date (if applicable) CC: Moody Knowles DO; Joelle Mcdonald MD Signed BEDSIDE GLUCOSE Collected: 10/24/2018 Status: F Source: [place] 8:08 AM [facility] TYPE CODE TESTS RESULT OUT OF RANGE REFERENCE UNITS LAB L501.080 70-110 mg/dL Normal BEDSIDE GLU 72 Result Comment: MANAGEMENT OF PATIENT CARE PER NURSING PROTOCOL Performed By: #### L501.080 #### [facility] Point of Care [address] [place] [address] BEDSIDE GLUCOSE Collected: 10/24/2018 Status: F Source: [place] 4:01 AM [facility] TYPE CODE TESTS RESULT OUT OF RANGE REFERENCE UNITS LAB L501.080 70-110 mg/dL Normal BEDSIDE GLU 77 Result Comment: MANAGEMENT OF PATIENT CARE PER NURSING PROTOCOL Performed By: #### L501.080 #### [facility] Point of Care [address] [place] [address] BEDSIDE GLUCOSE Collected: 10/24/2018 Status: F Source: [place] 12:20 AM [facility] TYPE CODE TESTS RESULT OUT OF RANGE REFERENCE UNITS LAB L501.080 70-110 mg/dL Normal BEDSIDE GLU 82 Result Comment: MANAGEMENT OF PATIENT CARE PER NURSING PROTOCOL Performed By: #### L501.080 #### [facility] Point of Care [address] [place] [address] BEDSIDE GLUCOSE Collected: 10/23/2018 Status: F Source: [place] 7:55 PM [facility] TYPE CODE TESTS RESULT OUT OF RANGE REFERENCE UNITS LAB L501.080 70-110 mg/dL Normal BEDSIDE GLU 76 Result Comment: MANAGEMENT OF PATIENT CARE PER NURSING PROTOCOL Performed By: #### L501.080 #### [facility] Point of Care [address] [place] [address] CBC-COMPLETE BLOOD CNT Collected: 10/23/2018 Status: F Source: [place] NO DIFF 6:50 PM [facility] TYPE CODE TESTS RESULT OUT OF RANGE REFERENCE UNITS LAB L100.1000 4.4-11.0 K/mm3 High WBC 11.2 LAB L100.1200 4.2-5.4 M/mm3 Low RBC 4.14 LAB L100.1300 12.0-15.0 g/dl Normal HGB 12.5 LAB L100.1400 37-47 % Low HCT 36.5 LAB L100.1500 81-99 fL Normal MCV 88.2 LAB L100.1600 27.0-32.0 pg Normal MCH 30.2 LAB L100.1700 32-36 g/gl Normal MCHC 34.2 LAB L100.1810 11.6-14.6 % Normal RDW CV 13.0 LAB L100.1820 35.1-43.9 fl Normal RDW SD 40.3 LAB L100.1900 150-450 K/mm3 Normal PLT 248 LAB L100.2000 6.2-12.0 fl Normal MPV 8.8 Performed By: #### L100.0500 #### [facility] [address] [place], [place], [id number] TYPE AND SCREEN Collected: 10/23/2018 Status: F Source: [place] 6:50 PM [facility] Order Comment: Reason for Type AND Screen/Red Cells: ROUTINE TYPE CODE TESTS RESULT OUT OF RANGE REFERENCE UNITS LAB B10.0800 O Normal BLOOD TYPE GEL POSITIVE LAB B100.4000 Normal Antibody NEGATIVE Screen Performed By: #### B101.7450 #### [facility] [address] [place], [place], [id number] BEDSIDE GLUCOSE Collected: 10/23/2018 Status: F Source: [place] 6:11 PM [facility] TYPE CODE TESTS RESULT OUT OF RANGE REFERENCE UNITS LAB L501.080 70-110 mg/dL Normal BEDSIDE GLU 96 Result Comment: MANAGEMENT OF PATIENT CARE PER NURSING PROTOCOL Performed By: #### L501.080 #### [facility] Point of Care [address] [place], [place] [address] CBC-COMPLETE BLOOD CNT Collected: 10/23/2018 Status: F Source: [place] NO DIFF 11:17 AM [facility] REPOSITORY TYPE CODE TESTS RESULT OUT OF RANGE REFERENCE UNITS LAB L100.1000 4.4-11.0 K/mm3 Normal WBC 10.7 LAB L100.1200 4.2-5.4 M/mm3 Normal RBC 4.42 LAB L100.1300 12.0-15.0 g/dl Normal HGB 12.9 LAB L100.1400 37-47 % Normal HCT 38.4 LAB L100.1500 81-99 fL Normal MCV 86.9 LAB L100.1600 27.0-32.0 pg Normal MCH 29.2 LAB L100.1700 32-36 g/gl Normal MCHC 33.6 LAB L100.1810 11.6-14.6 % Normal RDW CV 12.9 LAB L100.1820 35.1-43.9 fl Normal RDW SD 41.6 LAB L100.1900 150-450 K/mm3 Normal PLT 209 LAB L100.2000 6.2-12.0 fl Normal MPV 8.5 Performed By: #### L100.0500 #### [facility] [address] [place], [place], [address] PROTHROMBIN TIME W/INR Collected: 10/23/2018 Status: F Source: [facility]IR[facility] 11:17 AM [facility] REPOSITORY TYPE CODE TESTS RESULT OUT OF RANGE REFERENCE UNITS LAB L300.4150 11.7-14.9 SECONDS Normal PROTIME 13.7 LAB L300.4200 Normal INR 1.1 Performed By: #### L300.3900, L300.4310, L501.1105, L501.1400, L501.4100, L501.4405 #### [facility] [address] [place], [place], [address] PARTIAL THROMBOPLAST Collected: 10/23/2018 Status: F Source: [facility] TIME 11:17 AM [facility] REPOSITORY TYPE CODE TESTS RESULT OUT OF RANGE REFERENCE UNITS LAB L300.4310 24.1-36.2 Seconds Normal PTT 25.2 Performed By: #### L300.3900, L300.4310, L501.1105, L501.1400, L501.4100, L501.4405 #### [facility] [address] [place], [place], [id number] SERUM CREATININE AND Collected: 10/23/2018 Status: F Source: [facility] GFR 11:17 AM [facility] REPOSITORY TYPE CODE TESTS RESULT OUT OF RANGE REFERENCE UNITS LAB L501.1100 0.55-1.02 mg/dL Low 0.51 CREAT,SERUM Result Comment: The validity of the calculated GFR AND GFRAA in patients over 70 years has not been determined. Clinical correlation is essential. LAB L501.1110 >60 mL/min Normal EST GFR 152 Result Comment: Non- GFR Calc LAB L501.1115 >60 mL/min Normal EST GFR - AA 184 Result Comment: GFR Calc LAB L501.1255 ml/min Normal Estimated CRCL 152.37 Performed By: #### L300.3900, L300.4310, L501.1105, L501.1400, L501.4100, L501.4405 #### [facility] [address] [place], [address] URIC ACID Collected: 10/23/2018 Status: F Source: [facility] 11:17 AM [facility] REPOSITORY TYPE CODE TESTS RESULT OUT OF RANGE REFERENCE UNITS LAB L501.1400 2.6-6.0 mg/dL Normal URIC 5.3 Result Comment: The drugs N-Acetylcysteine and Metamizole may falsely depress this assay. Performed By: #### L300.3900, L300.4310, L501.1105, L501.1400, L501.4100, L501.4405 #### [facility] [address] [place], [address] AST(SGOT) Collected: 10/23/2018 Status: F Source: [facility] 11:17 AM [facility] REPOSITORY TYPE CODE TESTS RESULT OUT OF RANGE REFERENCE UNITS LAB L501.4100 15-37 U/L Low AST 13 Performed By: #### L300.3900, L300.4310, L501.1105, L501.1400, L501.4100, L501.4405 #### [facility] [address] [place], [address] ALANINE AMINOTRANSFERAS Collected: 10/23/2018 Status: F Source: [facility] (SGPT) 11:17 AM [facility] REPOSITORY TYPE CODE TESTS RESULT OUT OF RANGE REFERENCE UNITS LAB L501.4405 13-56 U/L Normal ALT 13 Performed By: #### L300.3900, L300.4310, L501.1105, L501.1400, L501.4100, L501.4405 #### [facility] [address] [place], [address] PROTEIN+CREATININE Collected: Status: F Source: [facility] CARREON,URINE 10/23/2018 10:18 AM [facility] REPOSITORY TYPE CODE TESTS RESULT OUT OF RANGE REFERENCE UNITS LAB L501.1200 NO RANGE EST. mg/dL Normal UR CREAT 39.50 LAB L501.1930 <11.9 mg/dL Normal 8.6 PROTEIN,UR.R AN. LAB L501.1940 0-200 mg/g CRE High PROT:CRE 218 RATIO Performed By: #### L501.0900 #### [facility] [address] [place], [address] PROTHROMBIN TIME W/INR Collected: 10/19/2018 Status: F Source: [place] 11:55 AM [facility] REPOSITORY Order Comment: REDRAW. PREVIOUS SPECIMEN WAS REJECTED FOR TESTING DUE TO QNS. SPECIMEN WAS DISCARDED. 10/19/18 1148 Adan Ruiz. TYPE CODE TESTS RESULT OUT OF RANGE REFERENCE UNITS LAB L300.4150 11.7-14.9 SECONDS Normal PROTIME 14.1 LAB L300.4200 Normal INR 1.1 Performed By: #### L300.3900, L300.4310 #### [facility] [address] [place], [address] PARTIAL THROMBOPLAST Collected: 10/19/2018 Status: F Source: [place] TIME 11:55 AM [facility] REPOSITORY Order Comment: REDRAW. PREVIOUS SPECIMEN WAS REJECTED FOR TESTING DUE TO QNS. SPECIMEN WAS DISCARDED. 10/19/18 Elsie Ruiz. TYPE CODE TESTS RESULT OUT OF RANGE REFERENCE UNITS LAB L300.4310 24.1-36.2 Seconds Normal PTT 26.2 Performed By: #### L300.3900, L300.4310 #### [facility] [address] [place], [place], [address] CBC-COMPLETE BLOOD CNT Collected: 10/19/2018 Status: F Source: [place] NO DIFF 11:35 AM [facility] REPOSITORY TYPE CODE TESTS RESULT OUT OF RANGE REFERENCE UNITS LAB L100.1000 4.4-11.0 K/mm3 High WBC 11.2 LAB L100.1200 4.2-5.4 M/mm3 Normal RBC 4.60 LAB L100.1300 12.0-15.0 g/dl Normal HGB 13.7 LAB L100.1400 37-47 % Normal HCT 40.2 LAB L100.1500 81-99 fL Normal MCV 87.4 LAB L100.1600 27.0-32.0 pg Normal MCH 29.8 LAB L100.1700 32-36 g/gl Normal MCHC 34.1 LAB L100.1810 11.6-14.6 % Normal RDW CV 13.1 LAB L100.1820 35.1-43.9 fl Normal RDW SD 41.8 LAB L100.1900 150-450 K/mm3 Normal PLT 222 LAB L100.2000 6.2-12.0 fl Normal MPV 8.8 Performed By: #### L100.0500 #### [facility] [address] [place], [place], [address] SERUM CREATININE AND Collected: 10/19/2018 Status: F Source: [place] GFR 11:35 AM [facility] REPOSITORY TYPE CODE TESTS RESULT OUT OF RANGE REFERENCE UNITS LAB L501.1100 0.55-1.02 mg/dL Normal 0.56 CREAT,SERUM Result Comment: The validity of the calculated GFR AND GFRAA in patients over 70 years has not been determined. Clinical correlation is essential. LAB L501.1110 >60 mL/min Normal EST GFR 137 Result Comment: Non- GFR Calc LAB L501.1115 >60 mL/min Normal EST GFR - AA 166 Result Comment: GFR Calc LAB L501.1255 ml/min Normal Estimated CRCL 138.76 Performed By: #### L501.1105, L501.1400, L501.4100, L501.4405 #### [facility] [address] [place], [address] URIC ACID Collected: 10/19/2018 Status: F Source: [place] 11:35 AM [facility] REPOSITORY TYPE CODE TESTS RESULT OUT OF RANGE REFERENCE UNITS LAB L501.1400 2.6-6.0 mg/dL Normal URIC 4.9 Result Comment: The drugs N-Acetylcysteine and Metamizole may falsely depress this assay. Performed By: #### L501.1105, L501.1400, L501.4100, L501.4405 #### [facility] [address] [place], [address] AST(SGOT) Collected: 10/19/2018 Status: F Source: [place] 11:35 AM [facility] REPOSITORY TYPE CODE TESTS RESULT OUT OF RANGE REFERENCE UNITS LAB L501.4100 15-37 U/L Normal AST 22 Result Comment: Slight Hemolysis, Result may be falsely increased. Performed By: #### L501.1105, L501.1400, L501.4100, L501.4405 #### [facility] [address] [place], [address] ALANINE AMINOTRANSFERAS Collected: 10/19/2018 Status: F Source: [facility] (SGPT) 11:35 AM [facility] REPOSITORY TYPE CODE TESTS RESULT OUT OF RANGE REFERENCE UNITS LAB L501.4405 13-56 U/L Normal ALT 14 Performed By: #### L501.1105, L501.1400, L501.4100, L501.4405 #### [facility] [address] [place], [address] PROTEIN+CREATININE Collected: Status: F Source: [facility] RATIO,URINE 10/19/2018 11:20 AM [facility] REPOSITORY TYPE CODE TESTS RESULT OUT OF RANGE REFERENCE UNITS LAB L501.1200 NO RANGE EST. mg/dL Normal UR CREAT 54.30 LAB L501.1930 <11.9 mg/dL Normal 11.8 PROTEIN,UR.R AN. LAB L501.1940 0-200 mg/g CRE High PROT:CRE 217 RATIO Performed By: #### L501.0900 #### [facility] [address] [place], [address] OB LIMITED WITH Observed: 10/16/2018 Status: F Source: [facility] BIOMETRICS 9:02 AM [facility] REPOSITORY [facility] [address] [place] [address] OB Limited With Biometrics MR#: [id number] Acct: [id number] Name: JOE BHAGAT Rep #: [id number] : 1990 F 28 From: Adam Hernandez MD PCP: Moody Knowles DO Status: REG CLI Study: OB Limited With Biometrics Date of Exam: 10/16/18 Exam# [id number] Ordering Dr: Joelle Mcdonald MD STUDY: SECOND AND THIRD TRIMESTER OBSTETRICAL ULTRASOUND - LIMITED REASON FOR EXAM: Female, 28 years old. Routine survey. LMP: January 30, 2018. PRIOR ULTRASOUND: Comparison is made with prior study dated June 12, 2018. TECHNIQUE: Transabdominal TECHNICAL QUALITY: Adequate. FINDINGS: There is a single intrauterine fetus. The fetus is in a cephalic presentation. There is demonstrated cardiac activity with a heart rate of 156 bpm. There is a normal amniotic fluid volume. The largest amniotic fluid pocket measures 5.0 cm x 2.2 cm. The amniotic fluid index (ANGELICA) is 9.4 cm. The placenta is anterior in location and is not low lying. There are Grade 3 placental changes. The cervical length was not able to be measured due to the positioning. BIOMETRY: BPD: 9.3 cm: 38 weeks, 0 days HC: 34.4 cm: 39 weeks, 6 days AC: 34.6 cm: 38 weeks, 4 days FL: 7.3 cm: 37 weeks, 2 days Age by LMP: 37 weeks, 0 days. JENNIFER by LMP: November 06, 2018. age by prior US: 37 weeks, 3 days. JENNIFER by prior US: November 03, 2018. age by current US: 38 weeks, 3 days. JENNIFER by current US: October 27, 2018. Estimated weight: 3458 grams, +/- 5.5 grams, 87 percentile. Gender: Female US/OB Limited With Biometrics IMPRESSION: Single live intrauterine gestation with a mean gestational age of 37 weeks and 3 days. The measurements obtained today fall within the normal expected range. Electronically Signed: Adam Hernandez MD at 14:13 EST Tel [phone], Service support , CC: Moody Knowles DO; Joelle Mcdonald MD Senior Designer: Signed GROUP B STREP DNA Collected: 10/13/2018 Status: F Source: [facility] BY PCR 5:38 PM [facility] REPOSITORY TYPE CODE TESTS RESULT OUT OF RANGE REFERENCE UNITS LAB L8200.0100 Negative Normal GBS TEST Negative RESULT Performed By: #### L8200.0000 #### [facility] [address] [place], [place], [id number] REPORTING DEVELOPER OFFICE VISIT Observed: 10/13/2018 Status: F Source: [place] REPORT 1:53 PM [facility] REPOSITORY [facility] [address] [place] [address] OFFICE VISIT Date of Service: 10/13/18 MR#: [id number] Acct: [id number] Name: JOE BHAGAT Rep #: [id number] : 1990 Provider: Joelle Mcdonald MD Age/Sex: 28/F [place] [facility] [place]: Signed Intake Vital Signs10/13/18 Body Mass Index (BMI) 36.9 10/13/18 Height 5 ft 6 in 10/13/18 Weight: 237 lb 10/13/18 Body Mass Index (BMI) 38.2 10/13/18 Blood Pressure 116/72 Intake Visit Reasons: 36 week ob Precision Assembly Inspector Required: No Is patient in pain?: No Allergies No Known Allergies Allergy (Verified 10/13/18 13:26) Medications vitamin,calcium,ywsiqpjx-gvzo-bhejn acid tablet 1 tab PO QDAY 03/31/18 [History Confirmed 10/13/18] blood sugar diagnostic strips See Dose Instructions .ROUTE .MEDSUPPLY #100 ea 04/11/18 [Rx Confirmed 10/13/18] blood-glucose meter See Dose Instructions .ROUTE .MEDSUPPLY #1 ea 04/11/18 [Rx Confirmed 10/13/18] Last Menstral Period: 01/28/18 Zika: Zika virus screening: Negative : No PFSH PFSH Social History Smoking Status: Never smoker alcohol intake: never substance use type: does not use caffeine: Yes frequency: 3-4 times per week seatbelt use: always do you feel safe at home: Yes additional social history: DestineeAlivia Wilson Patient works at [employer] Pregancy History 3 Elective abortions Hx Para 2 Spontaneous abortions Past Pregnancies Del. DateName GA/Weeks Outcome Route Bth WeighInfant GeLabor LgtAnesthesiDel LocatProvider FOB t n h a n HPI 36 week ob: Details: JOE BHAGAT is a 28 year old who presents for routine OB visit. OB Visit JENNIFER Calculator Estimated Delivery Date 11/06/18 Based on LMP (certain) 01/30/18 Current WG 36w 4d Number 1 Expected Delivery Route/Plan Specific Issue/Plans flu vaccine: Declined tdap vaccine: patient is thinking it over rhogam: N/A LARC form signed: declines labor support person: destinee pain management: minimal intervention cut cord/dad catch: cut cord : yes PP control planned: mirena 6 week PP special requests: Initial Weight: 209 lb Date Weight BP Urine PrFHR FuHt Pres MoCTX DilationFetal StVisit NoProviderComments E ot v te GA G Effac lucose ed Visit Notes Visit Date: 10/13/18 no vb lof good fm no ergular ctx Joelle Mcdonald MD on 10/13/18 Visit Date: 09/27/18 bs well controlled no vb lof good fm no regular ctx- some BH ctx Joelle Mcdonald MD on 09/27/18 Visit Date: 09/15/18 no vb lof good fm no regular ctx bs well controlled. growth us at 36 weeks Joelle Mcdonald MD on 09/15/18 Visit Date: 09/01/18 BS well controlled. No VB, LOF TATIANA Joe on 09/01/18 Visit Date: 08/18/18 blood sugars well controlled. no vb lof good fm no regular ctx. Joelle Mcdonald MD on 08/18/18 Visit Date: 08/04/18 OCCASIONAL CRAMPING no vb lof good fm FBS close to 95 and 2 hr ppg under 120 Joelle Mcdonald MD on 08/04/18 Visit Date: 07/21/18 BS reviewed and WNL doing well. no vb cramping. Joelle Mcdonald MD on 07/21/18 Visit Date: 06/23/18 no vb lof cramping, reviewed US Joelle Mcdonald MD on 06/23/18 Visit Date: 05/26/18 no vb cramping, BS well controlled Joelle Mcdonald MD on 05/26/18 Visit Date: 04/28/18 FBS 70-80s, 2 hr ppg under a 100. no vb cramping. met with engine testing supervisor. Joelle Mcdonald MD on 04/28/18 Visit Date: 03/31/18 No visit notes to display ACOG First Trimester First Trimester: Discussed Diagnostics Diagnostics Labs Hct 37.7 % (37-47) 08/18/18 Hgb 12.8 g/dl (12.0-15.0) 08/18/18 Obstetrics Ultrasound 06/12/18 Details: HIV: Urine Culture: Sequential Screen: NIPT Screen: Results [id number] Office Urine Glucose Negative Last Edit by Sylvia Schuster on 10/13/18 13:24 Office Urine Protein Negative Last Edit by Sylvia Schuster on 10/13/18 13:24 Assessment AND Plan Problems 1. Diet controlled gestational diabetes mellitus in third trimester O24.410 education, testing recommended 4 times daily, plan 36 week growth US 2. Obesity affecting in third trimester O99.213 first trimester glucola abnormal, diet/exercise in discussed 3. 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 anatomy scan- 4. IUD contraception Z97.5 Preauth. Liletta for insertion at delivery 5. Supervision of high risk in third trimester O09.93 PRR JENNIFER 11/06/18 PC Thiago Strickland Destinee Plan movement and labor precautions reviewed. ACOG trimester education reviewed and updated. see problem list details for updated plan management information and see below for orders placed at this visit. GA appropriate handout given. Orders Orders: Coding Level of Care Code OB Routine Diagnoses Diet controlled gestational diabetes mellitus in third trimester O24.410 Obesity affecting in third trimester O99.213 Trimester: third trimester 34 weeks gestation of Z3A.34 Weeks of gestation: 34 weeks IUD contraception Z97.5 Supervision of high risk in third trimester O09.93 10/13/18 1353 <Electronically signed by Joelle Mcdonald MD> Date Joelle Mcdonald MD Cosign Signature: Date (if applicable) CC: Observed: 10/13/2018 Status: F Source: [facility] CULTURE, GROUP B 12:00 AM [facility]REPTOCOCCUS REPOSITORY DOMINIQUE Culture Group B Beta Streptococcus is not isolated. Performed By: #### M100.1800 #### [facility] [address] [place], [place], [id number] REPORTING DEVELOPER OFFICE VISIT Observed: 09/27/2018 Status: F Source: [place] REPORT 2:09 PM [facility] REPOSITORY [facility] [address] [place] [address] OFFICE VISIT Date of Service: 09/27/18 MR#: [id number] Acct: [id number] Name: JOE BHAGAT Rep #: [id number] : 1990 Provider: Joelle Mcdonald MD Age/Sex: 28/F [place] [facility] [place] Status: Signed Intake Vital Signs09/27/18 Body Mass Index (BMI) 36.9 09/27/18 Height 5 ft 6 in 09/27/18 Weight: 234 lb 6 oz 09/27/18 Body Mass Index (BMI) 37.8 09/27/18 Blood Pressure 110/72 Intake Visit Reasons: 34 week ob Precision Assembly Inspector Required: No Is patient in pain?: No Allergies No Known Allergies Allergy (Verified 09/27/18 13:52) Medications vitamin,calcium,hpyipquq-fuzm-hxjow acid tablet 1 tab PO QDAY 03/31/18 [History Confirmed 09/27/18] blood sugar diagnostic strips See Dose Instructions .ROUTE .MEDSUPPLY #100 ea 04/11/18 [Rx Confirmed 09/27/18] blood-glucose meter See Dose Instructions .ROUTE .MEDSUPPLY #1 ea 04/11/18 [Rx Confirmed 09/27/18] Last Menstral Period: 01/28/18 Zika: Zika virus screening: Negative : No Nurse's Note: Pt. states she has been having a dropping/swooshing feeling and a discharge PFSH PFSH Social History Smoking Status: Never smoker alcohol intake: never substance use type: does not use caffeine: Yes frequency: 3-4 times per week seatbelt use: always do you feel safe at home: Yes additional social history: Destinee Kevinricardo Patient works at [employer] Pregancy History 3 Elective abortions Hx Para 2 Spontaneous abortions Past Pregnancies Del. DateName GA/Weeks Outcome Route Bth WeighInfant GeLabor LgtAnesthesiDel LocatProvider FOB t n h a n HPI 34 week ob: Details: JOE BHAGAT is a 28 year old who presents for routine OB visit. OB Visit JENNIFER Calculator Estimated Delivery Date 11/06/18 Based on LMP (certain) 01/30/18 Current WG 34w 2d Number 1 Expected Delivery Route/Plan Specific Issue/Plans flu vaccine: Declined tdap vaccine: patient is thinking it over rhogam: N/A LARC form signed: declines labor support person: destinee pain management: minimal intervention cut cord/dad catch: cut cord : yes PP control planned: mirena 6 week PP special requests: Initial Weight: 209 lb Date Weight BP Urine PrFHR FuHt Pres MoCTX DilationFetal StVisit NoProviderComments E ot v te GA G Effac lucose ed Visit Notes Visit Date: 09/27/18 bs well controlled no vb lof good fm no regular ctx- some BH ctx Joelle Mcdonald MD on 09/27/18 Visit Date: 09/15/18 no vb lof good fm no regular ctx bs well controlled. growth us at 36 weeks Joelle Mcdonald MD on 09/15/18 Visit Date: 09/01/18 BS well controlled. No VB, LOF TATIANA Joe on 09/01/18 Visit Date: 08/18/18 blood sugars well controlled. no vb lof good fm no regular ctx. Joelle Mcdonald MD on 08/18/18 Visit Date: 08/04/18 OCCASIONAL CRAMPING no vb lof good fm FBS close to 95 and 2 hr ppg under 120 Joelle Mcdonald MD on 08/04/18 Visit Date: 07/21/18 BS reviewed and WNL doing well. no vb cramping. Joelle Mcdonald MD on 07/21/18 Visit Date: 06/23/18 no vb lof cramping, reviewed US Joelle Mcdonald MD on 06/23/18 Visit Date: 05/26/18 no vb cramping, BS well controlled Joelle Mcdonald MD on 05/26/18 Visit Date: 04/28/18 FBS 70-80s, 2 hr ppg under a 100. no vb cramping. met with engine testing supervisor. Joelle Mcdonald MD on 04/28/18 Visit Date: 03/31/18 No visit notes to display ACOG First Trimester First Trimester: Discussed Diagnostics Diagnostics Labs Hct 37.7 % (37-47) 08/18/18 Hgb 12.8 g/dl (12.0-15.0) 08/18/18 Obstetrics Ultrasound 06/12/18 Details: HIV: Urine Culture: Sequential Screen: NIPT Screen: Assessment AND Plan Problems 1. Diet controlled gestational diabetes mellitus in third trimester O24.410 education, testing recommended 4 times daily, plan 36 week growth US 2. 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 anatomy scan- 3. Obesity affecting in third trimester O99.213 first trimester glucola abnormal, diet/exercise in discussed 4. Supervision of high risk in third trimester O09.93 PRR JENNIFER 11/06/18 PC Thiago Strickland [place] 5. IUD contraception Z97.5 Preauth. Hector for insertion at delivery Plan movement and labor precautions reviewed. ACOG trimester education reviewed and updated. see problem list details for updated plan management information and see below for orders placed at this visit. GA appropriate handout given. Orders Orders: Coding Level of Care Code OB Routine Diagnoses Diet controlled gestational diabetes mellitus in third trimester O24.410 34 weeks gestation of Z3A.34 Weeks of gestation: 34 weeks Obesity affecting in third trimester O99.213 Trimester: third trimester Supervision of high risk in third trimester O09.93 IUD contraception Z97.5 09/27/18 1409 <Electronically signed by Joelle Mcdonald MD> Date Joelle Mcdonald MD [facility] Springs[facility] Signature: Date (if applicable) CC: REPORTING DEVELOPER OFFICE VISIT Observed: 09/15/2018 Status: F Source: [facility] REPORT 1:54 PM [facility] [address] [place] [address] OFFICE VISIT Date of Service: 09/15/18 MR#: [id number] Acct: [id number] Name: JOE BHAGAT Rep #: [id number] : 1990 Provider: Joelle Mcdonald MD Age/Sex: 28/F [place] [facility] [place]: Signed Intake Vital Signs09/15/18 Height 5 ft 6 in 09/15/18 Weight: 229 lb 09/15/18 Body Mass Index (BMI) 36.9 09/15/18 Blood Pressure 110/74 09/15/18 Body Mass Index (BMI) 36.6 Intake Visit Reasons: 32 week ob Chief Complaint: est ob Precision Assembly Inspector Required: No Is patient in pain?: No Allergies No Known Allergies Allergy (Verified 09/15/18 13:21) Medications vitamin,calcium,bjkxeoko-bwsv-vwsqd acid tablet 1 tab PO QDAY 03/31/18 [History Confirmed 09/01/18] blood sugar diagnostic strips See Dose Instructions .ROUTE .MEDSUPPLY #100 ea 04/11/18 [Rx Confirmed 09/15/18] blood-glucose meter See Dose Instructions .ROUTE .MEDSUPPLY #1 ea 04/11/18 [Rx Confirmed 09/01/18] Last Menstral Period: 01/28/18 Zika: Zika virus screening: Negative : No PFSH PFSH Social History Smoking Status: Never smoker alcohol intake: never substance use type: does not use caffeine: Yes frequency: 3-4 times per week seatbelt use: always do you feel safe at home: Yes additional social history: Lion Wilson Patient works at [employer] Pregancy History 3 Elective abortions Hx Para 2 Spontaneous abortions Past Pregnancies Del. DateName GA/Weeks Outcome Route Bth WeighInfant GeLabor LgtAnesthesiDel LocatProvider FOB t n h a n HPI 32 week ob: Details: JOE BHAGAT is a 28 year old who presents for routine OB visit. OB Visit JENNIFER Calculator Estimated Delivery Date 11/06/18 Based on LMP (certain) 01/30/18 Current WG 32w 4d Number 1 Expected Delivery Route/Plan Specific Issue/Plans flu vaccine: Declined tdap vaccine: patient is thinking it over rhogam: N/A LARC form signed: declines labor support person: destinee pain management: minimal intervention cut cord/dad catch: cut cord : yes PP control planned: mirena 6 week PP special requests: Initial Weight: 209 lb Date Weight BP Urine PrFHR FuHt Pres MoCTX DilationFetal StVisit NoProviderComments E ot v te GA G Effac lucose ed Visit Notes Visit Date: 09/15/18 no vb lof good fm no regular ctx bs well controlled. growth us at 36 weeks Joelle Mcdonald MD on 09/15/18 Visit Date: 09/01/18 BS well controlled. No VB, LOF TATIANA Joe on 09/01/18 Visit Date: 08/18/18 blood sugars well controlled. no vb lof good fm no regular ctx. Joelle Mcdonald MD on 08/18/18 Visit Date: 08/04/18 OCCASIONAL CRAMPING no vb lof good fm FBS close to 95 and 2 hr ppg under 120 Joelle Mcdonald MD on 08/04/18 Visit Date: 07/21/18 BS reviewed and WNL doing well. no vb cramping. Joelle Mcdonald MD on 07/21/18 Visit Date: 06/23/18 no vb lof cramping, reviewed US Joelle Mcdonald MD on 06/23/18 Visit Date: 05/26/18 no vb cramping, BS well controlled Joelle Mcdonald MD on 05/26/18 Visit Date: 04/28/18 FBS 70-80s, 2 hr ppg under a 100. no vb cramping. met with engine testing supervisor. Joelle Mcdonald MD on 04/28/18 Visit Date: 03/31/18 No visit notes to display ACOG First Trimester First Trimester: Discussed Diagnostics Diagnostics Labs Hct 37.7 % (37-47) 08/18/18 Hgb 12.8 g/dl (12.0-15.0) 08/18/18 Obstetrics Ultrasound 06/12/18 Chlam trachomat DNA PCR Negative (Negative) 03/31/18 N.gonorrhoeae DNA (PCR) Negative (Negative) 03/31/18 Details: HIV: Urine Culture: Sequential Screen: NIPT Screen: Results [email or web address] Office Urine Glucose Negative Last Edit by Chikis Velazquez on 09/15/18 13:25 Office Urine Protein Negative Last Edit by Chikis Velazquez on 09/15/18 13:25 Assessment AND Plan Problems 1. Diet controlled gestational diabetes mellitus in third trimester O24.410 education, testing recommended 4 times daily, plan 36 week growth US 2. 32 weeks gestation of Z3A.32 genetic, carrier, and NTD declned. anatomy scan- 3. Encounter for supervision of other normal in third trimester Z34.83 PRR JENNIFER 11/06/18 PC Thiago Strickland [place] Plan movement and labor precautions reviewed. ACOG trimester education reviewed and updated. see problem list details for updated plan management information and see below for orders placed at this visit. GA appropriate handout given. Orders Orders: Coding Level of Care Code OB Routine Diagnoses Diet controlled gestational diabetes mellitus in third trimester O24.410 32 weeks gestation of Z3A.32 Weeks of gestation: 32 weeks Encounter for supervision of other normal in third trimester Z34.83 Normal : other normal Trimester: third trimester 09/15/18 1354 <Electronically signed by Joelle Mcdonald MD> Date Joelle Mcdonald MD Cosigner Signature: Date (if applicable) CC: REPORTING DEVELOPER OFFICE VISIT Observed: 09/01/2018 Status: F Source: [facility] RE[facility] 3:04 PM [facility] [address] [place] [address] OFFICE VISIT Date of Service: 09/01/18 MR#: [id number] Acct: [id number] Name: JOE BHAGAT Rep #: [id number] : 1990 Provider: OTTO Levine Age/Sex: 28/F [place] [facility] [place]: [place] Intake Vital Signs09/01/18 Height 5 ft 6 in 09/01/18 Weight: 227 lb 09/01/18 Body Mass Index (BMI) 36.6 09/01/18 Blood Pressure 120/72 Intake Visit Reasons: 30 week ob Chief Complaint: est ob Precision Assembly Inspector Required: No Is patient in pain?: No Allergies No Known Allergies Allergy (Verified 09/01/18 14:31) Medications vitamin,calcium,ydslufcd-thmj-phqqm acid tablet 1 tab PO QDAY 03/31/18 [History Confirmed 09/01/18] blood sugar diagnostic strips See Dose Instructions .ROUTE .MEDSUPPLY #100 ea 04/11/18 [Rx Confirmed 09/01/18] blood-glucose meter See Dose Instructions .ROUTE .MEDSUPPLY #1 ea 04/11/18 [Rx Confirmed 09/01/18] Last Menstral Period: 01/28/18 Zika: Zika virus screening: Negative : No PFSH PFSH Social History Smoking Status: Never smoker alcohol intake: never substance use type: does not use caffeine: Yes frequency: 3-4 times per week seatbelt use: always do you feel safe at home: Yes additional social history: Lion Wilson Patient works at [employer] Pregancy History 3 Elective abortions Hx Para 2 Spontaneous abortions Past Pregnancies Del. DateName GA/Weeks Outcome Route Bth WeighInfant GeLabor LgtAnesthesiDel LocatProvider FOB t n h a n HPI 30 week ob: Details: JOE BHAGAT is a 28 year old who presents for routine OB visit. OB Visit JENNIFER Calculator Estimated Delivery Date 11/06/18 Based on LMP (certain) 01/30/18 Current WG 30w 4d Number 1 Expected Delivery Route/Plan Specific Issue/Plans flu vaccine: Declined tdap vaccine: patient is thinking it over rhogam: N/A LARC form signed: labor support person: [] pain management: [] cut cord/dad catch: [] : [] PP control planned: [] special requests: [] Initial Weight: 209 lb Date Weight BP Urine PFHR FuHt Pres MCTX DilatioFetal SVisit NProvideComment rot ov n t ote r s EGA Ef Gluco faced se 03/31/1209 lb 120/82 8 4 oz (+ 8w4 oz) 4d Visit Notes Visit Date: 09/01/18 BS well controlled. No VB, LOF TATIANA Joe on 09/01/18 Visit Date: 08/18/18 blood sugars well controlled. no vb lof good fm no regular ctx. Joelle Mcdonald MD on 08/18/18 Visit Date: 08/04/18 OCCASIONAL CRAMPING no vb lof good fm FBS close to 95 and 2 hr ppg under 120 Joelle Mcdonald MD on 08/04/18 Visit Date: 07/21/18 BS reviewed and WNL doing well. no vb cramping. Joelle Mcdonald MD on 07/21/18 Visit Date: 06/23/18 no vb lof cramping, reviewed US Joelle Mcdonald MD on 06/23/18 Visit Date: 05/26/18 no vb cramping, BS well controlled Joelle Mcdonald MD on 05/26/18 Visit Date: 04/28/18 FBS 70-80s, 2 hr ppg under a 100. no vb cramping. met with engine testing supervisor. Joelle Mcdonald MD on 04/28/18 Visit Date: 03/31/18 No visit notes to display ACOG First Trimester First Trimester: Discussed Diagnostics Diagnostics Labs Blood Type O POSITIVE 03/31/18 Antibody Screen NEGATIVE 03/31/18 Hct 37.7 % (37-47) 08/18/18 Hgb 12.8 g/dl (12.0-15.0) 08/18/18 Obstetrics Ultrasound 06/12/18 Rubella IgG Antibody 246.3 IU/mL 03/31/18 RPR NONREACTIVE (NONREACTIVE) 03/31/18 Hep Bs Antigen Negative (Negative) 03/31/18 Chlam trachomat DNA PCR Negative (Negative) 03/31/18 N.gonorrhoeae DNA (PCR) Negative (Negative) 03/31/18 Glucose 1 Hr 50 gm 160 mg/dL (70-140) H 03/31/18 Details: HIV: Urine Culture: Sequential Screen: NIPT Screen: Results [email or web address] Office Urine Glucose Negative Last Edit by Chikis Velazquez on 09/01/18 14:32 Office Urine Protein Negative Last Edit by Chikis Velazquez on 09/01/18 14:32 Assessment AND Plan Problems 1. Encounter for supervision of other normal in second trimester Z34.82 PRR JENNIFER 11/06/18 PC Thiago Strickland [place] 2. 30 weeks gestation of Z3A.30 genetic, carrier, and NTD declned. anatomy scan- 3. Diet controlled gestational diabetes mellitus in third trimester O24.410 education, testing recommended 4 times daily, plan 36 week growth US 4. BMI 33.0-33.9,adult Z68.33 first trimester glucola, diet/exercise in discussed Plan Orders placed: none Reviewed of labor precautions, movement/kick counts ACOG trimester education reviewed and updated See problem list details for updated plan of care Gestational age appropriate handout given RTO: 2 weeks Orders Orders: Coding Level of Care Code OB Routine Diagnoses Encounter for supervision of other normal in second trimester Z34.82 Normal : other normal Trimester: second trimester 30 weeks gestation of Z3A.30 Weeks of gestation: 30 weeks Diet controlled gestational diabetes mellitus in third trimester O24.410 BMI 33.0-33.9,adult Z68.33 09/01/18 1504 <Electronically signed by Silvia SIMPSON> Date Silvia SIMPSON Cosigner Signature: Date (if applicable) CC: REPORTING DEVELOPER OFFICE VISIT Observed: 08/18/2018 Status: F Source: [facility] REPORT 1:50 PM [facility] [address] [place] [address] OFFICE VISIT Date of Service: 08/18/18 MR#: [id number] Acct: [id number] Name: JOE BHAGAT Tal Rep #: [id number] : 1990 Provider: Joelle Mcdonald MD Age/Sex: 28/F [place] [facility] [place]: Signed Intake Vital Signs08/18/18 Height 5 ft 6 in 08/18/18 Weight: 222 lb 08/18/18 Body Mass Index (BMI) 35.8 08/18/18 Blood Pressure 122/68 H Intake Visit Reasons: 28 WEEKS Chief Complaint: est ob Precision Assembly Inspector Required: No Is patient in pain?: No Allergies No Known Allergies Allergy (Verified 08/18/18 12:51) Medications vitamin,calcium,zspubrdn-tvvd-xgjuo acid tablet 1 tab PO QDAY 03/31/18 [History Confirmed 08/04/18] blood sugar diagnostic strips See Dose Instructions .ROUTE .MEDSUPPLY #100 ea 04/11/18 [Rx Confirmed 08/18/18] blood-glucose meter See Dose Instructions .ROUTE .MEDSUPPLY #1 ea 04/11/18 [Rx Confirmed 08/18/18] Last Menstral Period: 01/28/18 Zika: Zika virus screening: Negative : No PFSH PFSH Social History Smoking Status: Never smoker alcohol intake: never substance use type: does not use caffeine: Yes frequency: 3-4 times per week seatbelt use: always do you feel safe at home: Yes additional social history: Lion Wilson Patient works at [employer] Pregancy History 3 Elective abortions Hx Para 2 Spontaneous abortions Past Pregnancies Del. DateName GA/Weeks Outcome Route Bth WeighInfant GeLabor LgtAnesthesiDel LocatProvider FOB t n h a n HPI 28 WEEKS: Details: JOE BHAGAT is a 28 year old who presents for routine OB visit. OB Visit JENNIFER Calculator Estimated Delivery Date 11/06/18 Based on LMP (certain) 01/30/18 Current WG 28w 4d Number 1 Expected Delivery Route/Plan Specific Issue/Plans flu vaccine: Declined tdap vaccine: patient is thinking it over rhogam: N/A LARC form signed: labor support person: [] pain management: [] cut cord/dad catch: [] : [] PP control planned: [] special requests: [] Initial Weight: 209 lb Date Weight BP Urine PrFHR FuHt Pres MoCTX DilationFetal StVisit NoProviderComments E ot v te [place] G Effac lucose ed Visit Notes Visit Date: 08/18/18 blood sugars well controlled. no vb lof good fm no regular ctx. Joelle Mcdonald MD on 08/18/18 Visit Date: 08/04/18 OCCASIONAL CRAMPING no vb lof good fm FBS close to 95 and 2 hr ppg under 120 Joelle Mcdonald MD on 08/04/18 Visit Date: 07/21/18 BS reviewed and WNL doing well. no vb cramping. Joelle Mcdonald MD on 07/21/18 Visit Date: 06/23/18 no vb lof cramping, reviewed US Joelle Mcdonald MD on 06/23/18 Visit Date: 05/26/18 no vb cramping, BS well controlled Joelle Mcdonald MD on 05/26/18 Visit Date: 04/28/18 FBS 70-80s, 2 hr ppg under a 100. no vb cramping. met with engine testing supervisor. Joelle Mcdonald MD on 04/28/18 Visit Date: 03/31/18 No visit notes to display ACOG First Trimester First Trimester: Discussed Diagnostics Diagnostics Labs Blood Type O POSITIVE 03/31/18 Antibody Screen NEGATIVE 03/31/18 Hct 37.7 % (37-47) 08/18/18 Hgb 12.8 g/dl (12.0-15.0) 08/18/18 Obstetrics Ultrasound 06/12/18 Rubella IgG Antibody 246.3 IU/mL 03/31/18 RPR NONREACTIVE (NONREACTIVE) 03/31/18 Hep Bs Antigen Negative (Negative) 03/31/18 Chlam trachomat DNA PCR Negative (Negative) 03/31/18 N.gonorrhoeae DNA (PCR) Negative (Negative) 03/31/18 Glucose 1 Hr 50 gm 160 mg/dL (70-140) H 03/31/18 Pap Smear Negative 09/16/16 Details: HIV: Urine Culture: Sequential Screen: NIPT Screen: Results [email or web address] Office Urine Glucose Negative Last Edit by Chikis Velazquez on 08/18/18 12:57 Office Urine Protein Negative Last Edit by Chikis Velazquez on 08/18/18 12:57 Immunizations Boostrix Tdap Performing Provider: Joelle Mcdonald MD Administered by: Chikis Velazquez on 08/18/18 13:30 Dose Route Admin Location Lot Number Expiration Date ND Pumper Gager 0.5 mL IM Left Arm (SQ) [id number] 09/04/24 12947-033-65 [employer] VIS Given Date VIS Publication Date 08/18/18 12/10/14 Eligibility Eligibility Date Assessment AND Plan Problems 1. BMI 33.0-33.9,adult Z68.33 first trimester glucola, diet/exercise in discussed 2. Diet controlled gestational diabetes mellitus in third trimester O24.410 education, testing recommended 4 times daily, plan 36 week growth US 3. 26 weeks gestation of Z3A.26 genetic, carrier, and NTD declned. anatomy scan- 4. Encounter for supervision of other normal in second trimester Z34.82 PRR JENNIFER 11/06/18 PC EldernadinezenonJuan ManuelThiago Destinee Plan movement and labor precautions reviewed. ACOG trimester education reviewed and updated. see problem list details for updated plan management information and see below for orders placed at this visit. [place] appropriate handout given. Orders Orders: Medications Discontinued: Boostrix Tdap (diphth,pertus(acell),tetanus) Discontinued 0.5 mL IM ONCE #1 0RF NS Z23 Reason: Office Medication has been Documented as given Coding Level of Care Code OB Routine Diagnoses BMI 33.0-33.9,adult Z68.33 Diet controlled gestational diabetes mellitus in third trimester O24.410 26 weeks gestation of Z3A.26 Weeks of gestation: 26 weeks Encounter for supervision of other normal in second trimester Z34.82 Normal : other normal Trimester: second trimester 08/18/18 1350 <Electronically signed by Joelle Mcdonald MD> Date Joelle Mcdonald MD Cosigner Signature: Date (if applicable) CC: CBC W/DIFF, AUTOMATED Collected: 08/18/2018 Status: F Source: [facility] 1:36 PM [facility] REPOSITORY TYPE CODE TESTS RESULT OUT OF RANGE REFERENCE UNITS LAB L100.1000 4.4-11.0 K/mm3 High WBC 13.3 LAB L100.1200 4.2-5.4 M/mm3 Normal RBC 4.23 LAB L100.1300 12.0-15.0 g/dl Normal HGB 12.8 LAB L100.1400 37-47 % Normal HCT 37.7 LAB L100.1500 81-99 fL Normal MCV 89.1 LAB L100.1600 27.0-32.0 pg Normal MCH 30.3 LAB L100.1700 32-36 g/gl Normal MCHC 34.0 LAB L100.1810 11.6-14.6 % Normal RDW CV 12.5 LAB L100.1820 35.1-43.9 fl Normal RDW SD 39.9 LAB L100.1900 150-450 K/mm3 Normal PLT 256 LAB L100.2000 6.2-12.0 fl Normal MPV 8.1 LAB L100.2100 47-70 % High NEUT% 72.9 LAB L100.2200 19-41 % Normal LY% 19.2 LAB L100.2300 0-10 % Normal MONO% 6.1 LAB L100.2400 0-5 % Normal EO% 1.0 LAB L100.2500 0-1 % Normal BASO% 0.1 LAB L100.2550 0.0-0.9 % Normal IM GRAN % 0.700 Result Comment: IG% - Immature Granulocytes (promyelocytes, myelocytes and metamyelocytes) > 1% indicates that a LEFT SHIFT is Present. LAB L100.2620 2.0-7.7 X10 3/uL High Absolute Neut 9.7 LAB L100.2720 0.83-4.51 X10 3/ul Normal Absolute Lymph 2.55 Performed By: #### L100.0100 #### [facility] [address] [place], [place], [address] REPORTING DEVELOPER OFFICE VISIT Observed: 08/04/2018 Status: F Source: [facility] REPORT 4:52 PM [facility] REPOSITORY [facility] [address] [place] [address] OFFICE VISIT Date of Service: 08/04/18 MR#: [id number] Acct: [id number] Name: JOE BHAGAT Tal Rep #: [id number] : 1990 Provider: Joelle Mcdonald MD Age/Sex: 28/F [place] [facility] [place]: Signed Intake Vital Signs08/04/18 Height 5 ft 6 in 08/04/18 Weight: 218 lb 08/04/18 Body Mass Index (BMI) 35.2 08/04/18 Blood Pressure 116/62 Intake Visit Reasons: 26 WEEK OB Precision Assembly Inspector Required: No Is patient in pain?: No Allergies No Known Allergies Allergy (Verified 08/04/18 16:21) Medications vitamin,calcium,gtmgcttn-hjhy-hjeue acid tablet 1 tab PO QDAY 03/31/18 [History Confirmed 08/04/18] blood sugar diagnostic strips See Dose Instructions .ROUTE .MEDSUPPLY #100 ea 04/11/18 [Rx Confirmed 08/04/18] blood-glucose meter See Dose Instructions .ROUTE .MEDSUPPLY #1 ea 04/11/18 [Rx Confirmed 08/04/18] Last Menstral Period: 01/30/18 Zika: Zika virus screening: Negative : No PFSH PFSH Social History Smoking Status: Never smoker alcohol intake: never substance use type: does not use caffeine: Yes frequency: 3-4 times per week seatbelt use: always do you feel safe at home: Yes additional social history: Lion Wilson Patient works at [employer] Pregancy History 2 Elective abortions Hx Para 2 Spontaneous abortions Past Pregnancies Del. DateName GA/Weeks Outcome Route Bth WeighInfant GeLabor LgtAnesthesiDel LocatProvider FOB t n h a n HPI 26 WEEK OB: Details: JOE BHAGAT is a 28 year old who presents for routine OB visit. OB Visit JENNIFER Calculator Estimated Delivery Date 11/06/18 Based on LMP (certain) 01/30/18 Current WG 26w 4d Number 1 Expected Delivery Route/Plan Specific Issue/Plans flu vaccine: Declined minichart given: [] tdap vaccine: Patient is thinking it over rhogam: N/A LARC form signed: [] labor support person: [] pain management: [] cut cord/dad catch: [] : [] PP control planned: [] special requests: [] Initial Weight: 209 lb Date Weight BP Urine PrFHR FuHt Pres MoCTX DilationFetal StVisit NoProviderComments E ot v te [place] G Effac lucose ed Visit Notes Visit Date: 08/04/18 OCCASIONAL CRAMPING no vb lof good fm FBS close to 95 and 2 hr ppg under 120 Joelle Mcdonald MD on 08/04/18 Visit Date: 07/21/18 BS reviewed and WNL doing well. no vb cramping. Joelle Mcdonald MD on 07/21/18 Visit Date: 06/23/18 no vb lof cramping, reviewed US Joelle Mcdonald MD on 06/23/18 Visit Date: 05/26/18 no vb cramping, BS well controlled Joelle Mcdonald MD on 05/26/18 Visit Date: 04/28/18 FBS 70-80s, 2 hr ppg under a 100. no vb cramping. met with engine testing supervisor. Joelle Mcdonald MD on 04/28/18 Visit Date: 03/31/18 No visit notes to display Diagnostics Diagnostics Labs Blood Type O POSITIVE 03/31/18 Antibody Screen NEGATIVE 03/31/18 Hct 36.6 % (37-47) L 03/31/18 Hgb 12.8 g/dl (12.0-15.0) 03/31/18 Pap Smear Negative 09/16/16 Obstetrics Ultrasound 06/12/18 Rubella IgG Antibody 246.3 IU/mL 03/31/18 RPR NONREACTIVE (NONREACTIVE) 03/31/18 Hep Bs Antigen Negative (Negative) 03/31/18 Chlam trachomat DNA PCR Negative (Negative) 03/31/18 N.gonorrhoeae DNA (PCR) Negative (Negative) 03/31/18 Glucose 1 Hr 50 gm 160 mg/dL (70-140) H 03/31/18 Details: HIV: Urine Culture: Sequential Screen: NIPT Screen: Assessment AND Plan Problems 1. 26 weeks gestation of Z3A.26 genetic, carrier, and NTD declned. anatomy scan- 2. Diet controlled gestational diabetes mellitus in third trimester O24.410 education, testing recommended 4 times daily, plan 36 week growth US 3. BMI 33.0-33.9,adult Z68.33 first trimester glucola, diet/exercise in discussed 4. Encounter for supervision of other normal in second trimester Z34.82 PRR JENNIFER 11/06/18 Thiago Morel [place] Plan movement and labor precautions reviewed. ACOG trimester education reviewed and updated. see problem list details for updated plan management information and see below for orders placed at this visit. [place] appropriate handout given. Orders Orders: Coding Level of Care Code OB Routine Diagnoses 26 weeks gestation of Z3A.26 Weeks of gestation: 26 weeks Diet controlled gestational diabetes mellitus in third trimester O24.410 BMI 33.0-33.9,adult Z68.33 Encounter for supervision of other normal in second trimester Z34.82 Normal : other normal Trimester: second trimester 08/04/18 1652 <Electronically signed by Joelle Mcdonald MD> Date Joelle Mcdonald MD Cosigner Signature: Date (if applicable) CC: REPORTING DEVELOPER OFFICE VISIT Observed: 07/21/2018 Status: F Source: [facility] RE[facility] 1:45 PM [facility] [address] [place] [address] OFFICE VISIT Date of Service: 07/21/18 MR#: [id number] Acct: [id number] Name: JOE BHAGAT Rep #: [id number] : 1990 Provider: Joelle Mcdonald MD Age/Sex: 28/F [place] [facility] [place]: Signed Intake Vital Signs07/21/18 Height 5 ft 6 in 07/21/18 Weight: 212 lb 6 oz 07/21/18 Body Mass Index (BMI) 34.2 Intake Visit Reasons: 24 WEEKS Chief Complaint: est ob Precision Assembly Inspector Required: No Is patient in pain?: No Allergies No Known Allergies Allergy (Verified 07/21/18 13:06) Medications vitamin,calcium,iawudomp-mlmz-vgfme acid tablet 1 tab PO QDAY 03/31/18 [History Confirmed 07/21/18] blood sugar diagnostic strips See Dose Instructions .ROUTE .MEDSUPPLY #100 ea 04/11/18 [Rx Confirmed 07/21/18] blood-glucose meter See Dose Instructions .ROUTE .MEDSUPPLY #1 ea 04/11/18 [Rx Confirmed 07/21/18] Last Menstral Period: 01/28/18 Zika: Zika virus screening: Negative : No PFSH PFSH Social History Smoking Status: Never smoker alcohol intake: never substance use type: does not use caffeine: Yes frequency: 3-4 times per week seatbelt use: always do you feel safe at home: Yes additional social history: Lion Wilson Patient works at [employer] Pregancy History 2 Elective abortions Hx Para 2 Spontaneous abortions Past Pregnancies Del. DateName GA/Weeks Outcome Route Bth WeighInfant GeLabor LgtAnesthesiDel LocatProvider FOB t n h a n HPI 24 WEEKS: Details: JOE BHAGAT is a 28 year old who presents for routine OB visit. OB Visit JENNIFER Calculator Estimated Delivery Date 11/06/18 Based on LMP (certain) 01/30/18 Current WG 24w 4d Number 1 Expected Delivery Route/Plan Specific Issue/Plans flu vaccine: [] minichart given: [] tdap vaccine: [] rhogam: [] LARC form signed: [] labor support person: [] pain management: [] cut cord/dad catch: [] : [] PP control planned: [] special requests: [] Initial Weight: 209 lb Date Weight BP Urine PrFHR FuHt Pres MoCTX DilationFetal StVisit NoProviderComments E ot v te [place] G Effac lucose ed Visit Notes Visit Date: 07/21/18 BS reviewed and WNL doing well. no vb cramping. Joelle Mcdonald MD on 07/21/18 Visit Date: 06/23/18 no vb lof cramping, reviewed US Joelle Mcdonald MD on 06/23/18 Visit Date: 05/26/18 no vb cramping, BS well controlled Joelle Mcdonald MD on 05/26/18 Visit Date: 04/28/18 FBS 70-80s, 2 hr ppg under a 100. no vb cramping. met with engine testing supervisor. Joelle Mcdonald MD on 04/28/18 Visit Date: 03/31/18 No visit notes to display ACOG First Trimester First Trimester: Discussed Diagnostics Diagnostics Labs Blood Type O POSITIVE 03/31/18 Antibody Screen NEGATIVE 03/31/18 Hct 36.6 % (37-47) L 03/31/18 Hgb 12.8 g/dl (12.0-15.0) 03/31/18 Pap Smear Negative 09/16/16 Obstetrics Ultrasound 06/12/18 Rubella IgG Antibody 246.3 IU/mL 03/31/18 RPR NONREACTIVE (NONREACTIVE) 03/31/18 Hep Bs Antigen Negative (Negative) 03/31/18 Chlam trachomat DNA PCR Negative (Negative) 03/31/18 N.gonorrhoeae DNA (PCR) Negative (Negative) 03/31/18 Glucose 1 Hr 50 gm 160 mg/dL (70-140) H 03/31/18 Details: HIV: Urine Culture: Sequential Screen: NIPT Screen: Results [id number] Office Urine Glucose Negative Last Edit by Chikis Velazquez on 07/21/18 13:14 Office Urine Protein Negative Last Edit by Chikis Velazquez on 07/21/18 13:14 Assessment AND Plan Problems 1. Diet controlled gestational diabetes mellitus in third trimester O24.410 education, testing recommended 4 times daily, plan 36 week growth US 2. BMI 33.0-33.9,adult Z68.33 first trimester glucola, diet/exercise in discussed 3. Encounter for supervision of other normal in second trimester Z34.82 PRR JENNIFER 11/06/18 Thiago Morel [place] 4. Z34.90 genetic, carrier, and NTD declned. anatomy scan- Plan ACOG trimester education reviewed and updated. see problem list details for updated plan management information and see below for orders placed at this visit. [place] appropriate handout given. Orders Orders: Coding Level of Care Code OB Routine Diagnoses Diet controlled gestational diabetes mellitus in third trimester O24.410 BMI 33.0-33.9,adult Z68.33 Encounter for supervision of other normal in second trimester Z34.82 Normal : other normal Trimester: second trimester Z34.90 07/21/18 1345 <Electronically signed by Joelle Mcdonald MD> Date Joelle Mcdonald MD Cosigner Signature: Date (if applicable) CC: REPORTING DEVELOPER OFFICE VISIT Observed: 06/23/2018 Status: F Source: [facility] REPORT 3:37 PM [facility] RE[facility]IT[facility] [address] [place] [address] OFFICE VISIT Date of Service: 06/23/18 MR#: [id number] Acct: [id number] Name: JOE BHAGAT Rep #: [id number] : 1990 Provider: Joelle Mcdonald MD Age/Sex: 28/F [place] [facility] [place]: Signed Intake Vital Signs06/23/18 Height 5 ft 6 in 06/23/18 Weight: 206 lb 06/23/18 Body Mass Index (BMI) 33.2 06/23/18 Blood Pressure 114/70 Intake Visit Reasons: 20 WEEKS Chief Complaint: est ob Precision Assembly Inspector Required: No Is patient in pain?: No Allergies No Known Allergies Allergy (Verified 06/23/18 15:20) Medications vitamin,calcium,rwvsmjjz-hrje-ymaok acid tablet 1 tab PO QDAY 03/31/18 [History Confirmed 06/23/18] blood sugar diagnostic strips See Dose Instructions .ROUTE .MEDSUPPLY #100 ea 04/11/18 [Rx Confirmed 06/23/18] blood-glucose meter See Dose Instructions .ROUTE .MEDSUPPLY #1 ea 04/11/18 [Rx Confirmed 06/23/18] Last Menstral Period: 01/28/18 Zika: Zika virus screening: Negative : No PFSH PFSH Social History Smoking Status: Never smoker alcohol intake: never substance use type: does not use caffeine: Yes frequency: 3-4 times per week seatbelt use: always do you feel safe at home: Yes additional social history: Lion Wilson Patient works at [employer] Pregancy History 2 Elective abortions Hx Para 2 Spontaneous abortions Past Pregnancies Del. DateName GA/Weeks Outcome Route Bth WeighInfant GeLabor LgtAnesthesiDel LocatProvider FOB t n h a n HPI 20 WEEKS: Details: JOE BHAGAT is a 28 year old who presents for routine OB visit. OB Visit JENNIFER Calculator Estimated Delivery Date 11/06/18 Based on LMP (certain) 01/30/18 Current WG 20w 4d Number 1 Expected Delivery Route/Plan Specific Issue/Plans flu vaccine: [] minichart given: [] tdap vaccine: [] rhogam: [] LARC form signed: [] labor support person: [] pain management: [] cut cord/dad catch: [] : [] PP control planned: [] special requests: [] Initial Weight: 209 lb Date Weight BP Urine PrFHR FuHt Pres MoCTX DilationFetal StVisit NoProviderComments E ot v te GA G Effac lucose ed Visit Notes Visit Date: 06/23/18 no vb lof cramping, reviewed US Joelle Mcdonald MD on 06/23/18 Visit Date: 05/26/18 no vb cramping, BS well controlled Joelle Mcdonald MD on 05/26/18 Visit Date: 04/28/18 FBS 70-80s, 2 hr ppg under a 100. no vb cramping. met with engine testing supervisor. Joelle Mcdonald MD on 04/28/18 Visit Date: 03/31/18 No visit notes to display ACOG First Trimester First Trimester: Discussed Diagnostics Diagnostics Labs Blood Type O POSITIVE 03/31/18 Antibody Screen NEGATIVE 03/31/18 Hct 36.6 % (37-47) L 03/31/18 Hgb 12.8 g/dl (12.0-15.0) 03/31/18 Pap Smear Negative 09/16/16 Obstetrics Ultrasound 06/12/18 Rubella IgG Antibody 246.3 IU/mL 03/31/18 RPR NONREACTIVE (NONREACTIVE) 03/31/18 Hep Bs Antigen Negative (Negative) 03/31/18 Chlam trachomat DNA PCR Negative (Negative) 03/31/18 N.gonorrhoeae DNA (PCR) Negative (Negative) 03/31/18 Glucose 1 Hr 50 gm 160 mg/dL (70-140) H 03/31/18 Rhogam given: No 01/26/14 Details: HIV: Urine Culture: Sequential Screen: NIPT Screen: Results [id number] Office Urine Glucose Negative Last Edit by Chikis Velazquez on 06/23/18 15:26 Office Urine Protein Negative Last Edit by Chikis Velazquez on 06/23/18 15:26 Assessment AND Plan Problems 1. Diet controlled gestational diabetes mellitus in third trimester O24.410 education, testing recommended 4 times daily, plan 36 week growth US 2. BMI 33.0-33.9,adult Z68.33 first trimester glucola, diet/exercise in discussed 3. Encounter for supervision of other normal in second trimester Z34.82 PRR JENNIFER 11/06/18 PC Thiago Strickland Destinee Plan ACOG trimester education reviewed and updated. see problem list details for updated plan management information and see below for orders placed at this visit. GA appropriate handout given. bs well controlled with diet Orders Orders: Coding Level of Care Code OB Routine Diagnoses Diet controlled gestational diabetes mellitus in third trimester O24.410 BMI 33.0-33.9,adult Z68.33 Encounter for supervision of other normal in second trimester Z34.82 Normal : other normal Trimester: second trimester 06/23/18 1537 <Electronically signed by Joelle Mcdonald MD> Date [facility]cd[facility] Signature: Date (if applicable) CC: OB ANATOMY SCAN Observed: 06/12/2018 Status: F Source: [facility] 3:22 PM [facility] Imaging Services [address] [place] [id number] OB Anatomy Scan MR#: [id number] Acct: [id number] Name: RORY BHAGATRolando Parada Rep #: [id number] : 1990 F 28 From: Gris Gil MD PCP: Moody Knowles DO Status: REG CLI Study: OB Anatomy Scan Date of Exam: 06/12/18 Exam# [id number] Ordering Dr: Joelle Mcdonald MD STUDY: SECOND AND THIRD TRIMESTER OBSTETRICAL ULTRASOUND REASON FOR EXAM: Female, 28 years old. , assessment LMP: January 30, 2018 TECHNIQUE: Transabdominal imaging of the pelvis was performed using real-time ultrasound. PRIOR ULTRASOUND: None. FINDINGS: There is a single intrauterine fetus. The fetus is in a cephalic presentation. There is demonstrated cardiac activity with a heart rate of 150 bpm. There is a normal amniotic fluid volume. The placenta is anterior in location and is not low lying. There are Grade 0 placental changes. The cervix measures 5.0 cm in length. The bilateral adnexal regions show no significant abnormalities. BIOMETRY: BPD: 4.39 cm: 19 weeks, 2 days HC: 16.63 cm: 19 weeks, 3 days AC: 13.88 cm: 19 weeks, 2 days FL: 2.97 cm: 19 weeks, 2 days CI: 80% FL/BPD: 68% FL/HC: FL/AC: 21% HC/AC: 1.20 age by current US: 19 weeks, 3 days. JENNIFER by current US: November 03, 2018. Estimated weight: 281 grams, +/- 41 grams, 60 %. age by prior US: weeks, days. JENNIFER by prior US: . Age by LMP: 19 weeks, 0 days. JENNIFER by LMP: November 06, 2018. ANATOMY: Gender: Female Cranium: Normal lateral ventricles. Normal choroid plexus. Normal cerebellum. Normal cisterna magna. Normal face, nose and lips. Chest: Normal 4-chamber heart. Abdomen/Pelvis: Normal diaphragm. Normal stomach. Normal abdominal wall. Normal cord insertion. Normal 3 vessel cord. Normal kidneys. Normal bladder. Spine: Normal cervical spine. Normal thoracic spine. Normal lumbar spine. Extremities: Normal bilateral upper extremities. Normal bilateral lower extremities. US/OB Anatomy Scan IMPRESSION: There is a viable intrauterine with estimated gestational age of 19 weeks 3 days by the current ultrasound. Measurements are given above. No acute abnormalities are seen. Electronically Signed: Gris Gil MD at 23:56 EDT Tel Direct: [phone], Service support , CC: Moody Knowles DO; Joelle Mcdonald MD Senior Designer: Signed REPORTING DEVELOPER OFFICE VISIT Observed: 05/26/2018 Status: F Source: [facility] REPORT 2:01 PM [facility] REPOSITORY [facility] [address] [place] [address] OFFICE VISIT Date of Service: 05/26/18 MR#: [id number] Acct: [id number] Name: JOE BHAGAT Rep #: [id number] : 1990 Provider: Joelle Mcdonald MD Age/Sex: 27/F [place] [facility] [place]: Signed Intake Vital Signs05/26/18 Height 5 ft 6 in 05/26/18 Weight: 203 lb 05/26/18 Body Mass Index (BMI) 32.8 05/26/18 Blood Pressure 117/79 Intake Visit Reasons: 16 WEEKS Precision Assembly Inspector Required: No Is patient in pain?: No Allergies No Known Allergies Allergy (Verified 05/26/18 13:48) Medications vitamin,calcium,cmaqvpkd-mjha-qftuq acid tablet 1 tab PO QDAY 03/31/18 [History Confirmed 05/26/18] blood sugar diagnostic strips See Dose Instructions .ROUTE .MEDSUPPLY #100 ea 04/11/18 [Rx Confirmed 05/26/18] blood-glucose meter See Dose Instructions .ROUTE .MEDSUPPLY #1 ea 04/11/18 [Rx Confirmed 05/26/18] Last Menstral Period: 01/28/18 Zika: Zika virus screening: Negative : No PFSH PFSH Social History Smoking Status: Never smoker alcohol intake: never substance use type: does not use caffeine: Yes frequency: 3-4 times per week seatbelt use: always do you feel safe at home: Yes additional social history: Lion Wilson Patient works at [employer] Pregancy History 2 Elective abortions Hx Para 2 Spontaneous abortions Past Pregnancies Del. DateName GA/Weeks Outcome Route Bth WeighInfant GeLabor LgtAnesthesiDel LocatProvider FOB t n h a n HPI 16 WEEKS: Details: JOE BHAGAT is a 27 year old who presents for routine OB visit. OB Visit JENNIFER Calculator Estimated Delivery Date 11/06/18 Based on LMP (certain) 01/30/18 Current WG 16w 4d Number 1 Expected Delivery Route/Plan Specific Issue/Plans flu vaccine: [] minichart given: [] tdap vaccine: [] rhogam: [] LARC form signed: [] labor support person: [] pain management: [] cut cord/dad catch: [] : [] PP control planned: [] special requests: [] Initial Weight: 209 lb Date Weight BP Urine PrFHR FuHt Pres MoCTX DilationFetal StVisit NoProviderComments E ot v te GA G Effac lucose ed Visit Notes Visit Date: 05/26/18 no vb cramping, BS well controlled Joelle Mcdonald MD on 05/26/18 Visit Date: 04/28/18 FBS 70-80s, 2 hr ppg under a 100. no vb cramping. met with engine testing supervisor. Joelle Mcdonald MD on 04/28/18 Visit Date: 03/31/18 No visit notes to display ACOG First Trimester First Trimester: Discussed Diagnostics Diagnostics Labs Blood Type O POSITIVE 03/31/18 Antibody Screen NEGATIVE 03/31/18 Hct 36.6 % (37-47) L 03/31/18 Hgb 12.8 g/dl (12.0-15.0) 03/31/18 Pap Smear Negative 09/16/16 Rubella IgG Antibody 246.3 IU/mL 03/31/18 RPR NONREACTIVE (NONREACTIVE) 03/31/18 Hep Bs Antigen Negative (Negative) 03/31/18 Chlam trachomat DNA PCR Negative (Negative) 03/31/18 N.gonorrhoeae DNA (PCR) Negative (Negative) 03/31/18 Glucose 1 Hr 50 gm 160 mg/dL (70-140) H 03/31/18 Rhogam given: No 01/26/14 Details: HIV: Urine Culture: Sequential Screen: NIPT Screen: Results [id number] Office Urine Glucose Negative Last Edit by Jael Bethea on 05/26/18 13:49 Office Urine Protein Negative Last Edit by Jael Bethea on 05/26/18 13:49 Assessment AND Plan Problems 1. Encounter for supervision of other normal in second trimester Z34.82 PRR JENNIFER 11/06/18 Thiago Morel Destinee 2. BMI 33.0-33.9,adult Z68.33 first trimester glucola, diet/exercise in discussed 3. Diet controlled gestational diabetes mellitus in third trimester O24.410 education, testing recommended 4 times daily, plan 36 week growth US Plan ACOG trimester education reviewed and updated. see problem list details for updated plan management information and see below for orders placed at this visit. GA appropriate handout given. Orders Orders: Coding Level of Care Code OB Routine Diagnoses Encounter for supervision of other normal in second trimester Z34.82 Normal : other normal Trimester: second trimester BMI 33.0-33.9,adult Z68.33 Diet controlled gestational diabetes mellitus in third trimester O24.410 05/26/18 1401 <Electronically signed by Joelle Mcdonald MD> Date Joelle Mcdonald MD [facility] Signature: Date (if applicable) CC: REPORTING DEVELOPER OFFICE VISIT Observed: 04/28/2018 Status: F Source: [facility] REPORT 3:22 PM [facility] [address] [place] [address] OFFICE VISIT Date of Service: 04/28/18 MR#: [id number] Acct: [id number] Name: OLAYINKAJOE Rep #: [id number] : 1990 Provider: Joelle Mcdonald MD Age/Sex: 27/F [place] [facility] [place]: Signed Intake Vital Signs04/28/18 Height 5 ft 6 in 04/28/18 Weight: 205 lb 04/28/18 Body Mass Index (BMI) 33.0 04/28/18 Blood Pressure 121/78 Intake Visit Reasons: 12 WEEKS Chief Complaint: est ob Precision Assembly Inspector Required: No Is patient in pain?: No Allergies No Known Allergies Allergy (Verified 04/28/18 14:37) Medications vitamin,calcium,yytoirus-yrpf-huuwv acid tablet 1 tab PO QDAY 03/31/18 [History Confirmed 04/28/18] blood sugar diagnostic strips See Dose Instructions .ROUTE .MEDSUPPLY #100 ea 04/11/18 [Rx Confirmed 04/28/18] blood-glucose meter See Dose Instructions .ROUTE .MEDSUPPLY #1 ea 04/11/18 [Rx Confirmed 04/28/18] Last Menstral Period: 01/28/18 Zika: Zika virus screening: Negative : No PFSH PFSH Social History Smoking Status: Never smoker alcohol intake: never substance use type: does not use caffeine: Yes frequency: 3-4 times per week seatbelt use: always do you feel safe at home: Yes additional social history: Lion Wilson Patient works at [employer] Pregancy History 2 Elective abortions Hx Para 2 Spontaneous abortions Past Pregnancies Del. DateName GA/Weeks Outcome Route Bth WeighInfant GeLabor LgtAnesthesiDel LocatProvider FOB t n h a n HPI 12 WEEKS: Details: JOE BHAGAT is a 27 year old who presents for routine OB visit. OB Visit JENNIFER Calculator Estimated Delivery Date 11/06/18 Based on LMP (certain) 01/30/18 Current WG 12w 4d Number 1 Expected Delivery Route/Plan Specific Issue/Plans flu vaccine: [] minichart given: [] tdap vaccine: [] rhogam: [] LARC form signed: [] labor support person: [] pain management: [] cut cord/dad catch: [] : [] PP control planned: [] special requests: [] Initial Weight: 209 lb Date Weight BP Urine PrFHR FuHt Pres MoCTX DilationFetal StVisit NoProviderComments E ot v te GA G Effac lucose ed Visit Notes Visit Date: 04/28/18 FBS 70-80s, 2 hr ppg under a 100. no vb cramping. met with engine testing supervisor. Joelle Mcdonald MD on 04/28/18 Visit Date: 03/31/18 No visit notes to display ACOG First Trimester First Trimester: Discussed Diagnostics Diagnostics Labs Blood Type O POSITIVE 03/31/18 Antibody Screen NEGATIVE 03/31/18 Hct 36.6 % (37-47) L 03/31/18 Hgb 12.8 g/dl (12.0-15.0) 03/31/18 Pap Smear Negative 09/16/16 Rubella IgG Antibody 246.3 IU/mL 03/31/18 RPR NONREACTIVE (NONREACTIVE) 03/31/18 Hep Bs Antigen Negative (Negative) 03/31/18 Chlam trachomat DNA PCR Negative (Negative) 03/31/18 N.gonorrhoeae DNA (PCR) Negative (Negative) 03/31/18 Glucose 1 Hr 50 gm 160 mg/dL (70-140) H 03/31/18 Rhogam given: No 01/26/14 Details: HIV: Urine Culture: Sequential Screen: NIPT Screen: Assessment AND Plan Problems 1. Encounter for supervision of other normal in first trimester Z34.81 PRR JENNIFER 11/06/18 Thiago Morel Destinee 2. Diet controlled gestational diabetes mellitus in third trimester O24.410 education, testing recommended 4 times daily, plan 36 week growth US 3. BMI 33.0-33.9,adult Z68.33 first trimester glucola, diet/exercise in discussed Plan Orders placed: none ACOG trimester education reviewed and updated. see problem list details for updated plan management information. GA appropriate handout given. Orders Orders: Coding Level of Care Code OB Routine Diagnoses Encounter for supervision of other normal in first trimester Z34.81 Diet controlled gestational diabetes mellitus in third trimester O24.410 BMI 33.0-33.9,adult Z68.33 04/28/18 1522 <Electronically signed by Joelle Mcdonald MD> Date Joelle Mcdonald MD Cosigner Signature: Date (if applicable) CC: GESTATIONAL GTT 3HR Collected: 04/10/2018 Status: F Source: [facility] 100G 9:57 AM [facility] Order Comment: Is Patient Fasting? Y TYPE CODE TESTS RESULT OUT OF RANGE REFERENCE UNITS LAB L501.0650 <105 mg/dL Normal GLU 86 GTT-FASTING Result Comment: GLUCOSE TOLERANCE TEST FOR Reference Interval GESTATIONAL DIABETES Fasting <105 mg/dL 1 hour <190 mg/dl 2 hour <165 mg/dl 3 hour <145 mg/dl LAB L501.0660 <190 mg/dL Normal GLU GTT- 1HR 155 LAB L501.0670 <165 mg/dL High GLU GTT- 2HR 169 LAB L501.0680 <145 L High GLU GTT- 3HR 165 Performed By: #### L500.4710 #### [facility] [address] [place], [place], [address] CT/NG WCH BY PCR Collected: 03/31/2018 Status: F Source: [place] 6:48 PM [facility] TYPE CODE TESTS RESULT OUT OF RANGE REFERENCE UNITS LAB L8200.2100 Negative Normal Chlam Negative Trac PCR LAB L8200.2200 Negative Normal NG by Negative PCR Performed By: #### L8200.1999, M100.0650 #### [facility] [address] [place], [place], [address] Observed: 03/31/2018 Status: F Source: [facility] CULTURE, URINE 6:48 PM [facility] RE[facility] CYTOLOGY INFORMATION: - CLINICAL INFORMATION: - DATE LMP/MENOPAUSE: LMP/ 01/30/18 - COLLECTION VIAL: Thin Prep Vial - WORKERS COMPENSATION SPECIALIST SOURCE: CERVICAL - COLLECTION TECHNIQUE: BRUSH ONLY/CERVIX BROOM ONLY Urine Culture Culture exhibits no growth. Performed By: #### L8200.1999, M100.0650 #### [facility] [address] [place], [address] PAP IG HPV APTIMA Collected: 03/31/2018 Status: F Source: SA[facility]A ,45 6:48 PM [facility] Order Comment: Specimen Comment: No. of containers..01 ThinPrep Vial TYPE CODE TESTS RESULT OUT OF RANGE REFERENCE UNITS LAB L7400.0800 . Normal DIAGN Comment Result Comment: NEGATIVE FOR INTRAEPITHELIAL LESION AND MALIGNANCY. CELLULAR CHANGES ASSOCIATED WITH INFLAMMATION ARE PRESENT. LAB L7400.0900 . Normal ADEQ Comment Result Comment: Satisfactory for evaluation. Endocervical and/or squamous metaplastic cells (endocervical component) are present. LAB L7400.1400 . Normal PERFORM Comment Result Comment: Karan Maravilla, Mechanical Engineering Technologist (ASCP) LAB L7400.2575 . Normal TEST METHOD Comment Result Comment: This liquid based ThinPrep(R) pap test was screened with the use of an image guided system. LAB L7400.2600 . Normal . COMM LAB L7400.2700 . Normal PAPSMR Comment Result Comment: The Pap smear is a screening test designed to aid in the detection of premalignant and malignant conditions of the uterine cervix. It is not a diagnostic procedure and should not be used as the sole means of detecting cervical cancer. Both false-positive and false-negative reports do occur. LAB L7400.2760 Negative Normal HPV APTIMA, Negative HR Result Comment: This test detects fourteen high-risk HPV types (16/18/31/33/35/39/45/ 51/52/56/58/59/66/68) without differentiation. Performed at: - [facility] [id number] Business Support Manager: Katrin Rodas MD, Phone: [phone] Performed at: = - [facility] [id number] Business Support Manager: Katrin Rodas MD, Phone: [phone] Performed By: #### L7400.0280 #### [facility] (refer to report for specific site) refer to report for address and phone number CBC W/DIFF, AUTOMATED Collected: 03/31/2018 Status: F Source: SAIRA 10:39 AM [facility] TYPE CODE TESTS RESULT OUT OF RANGE REFERENCE UNITS LAB L100.1000 4.4-11.0 K/mm3 Normal WBC 9.1 LAB L100.1200 4.2-5.4 M/mm3 Low RBC 4.14 LAB L100.1300 12.0-15.0 g/dl Normal HGB 12.8 LAB L100.1400 37-47 % Low HCT 36.6 LAB L100.1500 81-99 fL Normal MCV 88.4 LAB L100.1600 27.0-32.0 pg Normal MCH 30.9 LAB L100.1700 32-36 g/gl Normal MCHC 35.0 LAB L100.1810 11.6-14.6 % Normal RDW CV 11.8 LAB L100.1820 35.1-43.9 fl Normal RDW SD 37.5 LAB L100.1900 150-450 K/mm3 Normal PLT 311 LAB L100.2000 6.2-12.0 fl Normal MPV 8.8 LAB L100.2100 47-70 % High NEUT% 74.4 LAB L100.2200 19-41 % Normal LY% 20.0 LAB L100.2300 0-10 % Normal MONO% 4.4 LAB L100.2400 0-5 % Normal EO% 0.7 LAB L100.2500 0-1 % Normal BASO% 0.2 LAB L100.2550 0.0-0.9 % Normal IM GRAN % 0.300 Result Comment: IG% - Immature Granulocytes (promyelocytes, myelocytes and metamyelocytes) > 1% indicates that a LEFT SHIFT is Present. LAB L100.2620 2.0-7.7 X10 3/uL Normal Absolute Neut 6.8 LAB L100.2720 0.83-4.51 X10 3/ul Normal Absolute Lymph 1.82 Performed By: #### L100.0100, B101.7450 #### [facility] [address] [place], [place], [address] TYPE AND SCREEN Collected: 03/31/2018 Status: F Source: [facility] 10:39 AM [facility] Order Comment: Reason for Type AND Screen/Red Cells: TYPE CODE TESTS RESULT OUT OF RANGE REFERENCE UNITS LAB B10.0800 O Normal BLOOD TYPE GEL POSITIVE LAB B100.4000 Normal Antibody NEGATIVE Screen Performed By: #### L100.0100, B101.7450 #### [facility] [address] [place], [place], [address] GLUCOSE CHALLENGE GEST Collected: 03/31/2018 Status: F Source: [facility] 1H 50G 10:39 AM [facility] TYPE CODE TESTS RESULT OUT OF RANGE REFERENCE UNITS LAB L501.0250 70-140 mg/dL High GLU GEST 160 50g 1H Performed By: #### L501.0250 #### [facility] [address] [place] [address], [id number] RUBELLA IGG Collected: 03/31/2018 Status: F Source: [place] 10:39 AM [facility] TYPE CODE TESTS RESULT OUT OF RANGE REFERENCE UNITS LAB L509.4000 IU/mL Normal Rubella IgG 246.3 Result Comment: Antibody results Interpretation of Immune Status < 5 IU/ml Presumed Non-immune 5 - < 10 IU/ml Equivocal > or = 10 IU/ml Presumed Immune Performed By: #### L509.4000, L3890.6005, L700.5000 #### [facility] [address] [place] [address], [address] #### L3100.0390 #### [facility] (refer to report for specific site) refer to report for address and phone number HIV - WCH Collected: 03/31/2018 Status: F Source: SAIRA 10:39 AM [facility] TYPE CODE TESTS RESULT OUT OF RANGE REFERENCE UNITS LAB L3890.6005 Nonreactive Normal HIV - WCH Non-Reactive Performed By: #### L509.4000, L3890.6005, L700.5000 #### [facility] [address] [place] [address], [address] #### L3100.0390 #### [facility] (refer to report for specific site) refer to report for address and phone number HEPATITIS B SURFACE Collected: 03/31/2018 Status: F Source: [facility] AG 10:39 AM [facility] TYPE CODE TESTS RESULT OUT OF RANGE REFERENCE UNITS LAB L3100.0400 Negative Normal HB Negative SURF AG Result Comment: Performed at: - [facility] [address] [place] [id number] Business Support Manager: Álvaro Henson PhD, Phone: [phone] Performed By: #### L509.4000, L3890.6005, L700.5000 #### [facility] [address] [place], [address] #### L3100.0390 #### [facility] (refer to report for specific site) refer to report for address and phone number RAPID PLASMIN REAGIN Collected: 03/31/2018 Status: F Source: SAIRA (RPR) 10:39 AM [facility] TYPE CODE TESTS RESULT OUT OF REFERENCE UNITS RANGE LAB L700.5000 NONREACTIVE NONREACTIVE Normal RPR Performed By: #### L509.4000, L3890.6005, L700.5000 #### [facility] [address] [place], [address] #### L3100.0390 #### [facility] (refer to report for specific site) refer to report for address and phone number REPORTING DEVELOPER OFFICE VISIT Observed: 03/31/2018 Status: F Source: [place] REPORT 9:59 AM [facility] [address] [place] [address] OFFICE VISIT Date of Service: 03/31/18 MR#: [id number] Acct: [id number] Name: JOE BHAGAT Rep #: [id number] : 1990 Provider: Joelle Mcdonald MD Age/Sex: 27/F [place] [facility] [place]: Signed Intake Vital Signs03/31/18 Height 5 ft 6 in 03/31/18 Weight: 209 lb 4 oz 03/31/18 Body Mass Index (BMI) 33.7 03/31/18 Blood Pressure 120/82 Intake Visit Reasons: NOB - LMP 02/01 Chief Complaint: NEW OB Precision Assembly Inspector Required: No Is patient in pain?: No Allergies No Known Allergies Allergy (Verified 03/31/18 09:26) Medications vitamin,calcium,pivqzvoi-qxjj-bygic acid tablet 1 tab PO QDAY 03/31/18 [History Confirmed 03/31/18] Last Menstral Period: 01/28/18 Zika: Zika virus screening: Negative : No PFSH PFSH Social History Smoking Status: Never smoker alcohol intake: never substance use type: does not use caffeine: Yes frequency: 3-4 times per week seatbelt use: always do you feel safe at home: Yes additional social history: Lion Wilson Patient works at [employer] Pregancy History 2 Elective abortions Hx Para 2 Spontaneous abortions Past Pregnancies Del. DateName GA/Weeks Outcome Route Bth WeighInfant GeLabor LgtAnesthesiDel LocatProvider FOB t n h a n HPI NOB - LMP 02/01: Details: JOE BHAGAT is a 27 year old who presents for New OB visit. OB Visit JENNIFER Calculator Estimated Delivery Date 11/06/18 Based on LMP (certain) 01/30/18 Current WG 8w 4d Number 1 Expected Delivery Route/Plan Specific Issue/Plans flu vaccine: [] minichart given: [] tdap vaccine: [] rhogam: [] LARC form signed: [] labor support person: [] pain management: [] cut cord/dad catch: [] : [] PP control planned: [] special requests: [] Initial Weight: 209 lb Date Weight BP Urine PrFHR FuHt Pres MoCTX DilationFetal StVisit NoProviderComments E ot v te GA G Effac lucose ed Menstrual History Last Menstral Period: 01/28/18 Reported LMP: definite Normal amount/duration: Yes On hormonal BC at conception: No Antepartum Record Genetic Screening: Congenital Heart Defect: Other, Neural Tube Defect: Other, Hemoglobinopathy Or Carrier: Other, Cystic Fibrosis: Other, Chromosome Abnormality: Other, Bob-Sachs: Other, Hemophilia: Other, Intellectual Disability/Autism: Other, Recurrent Loss/Stillbirth: Other, Other Structural Defect: Other, Other Genetic Disease: Other, Maternal Metabolic Disorder: Other Infection History: Live with someone with TB or Exposed to TB: No, Patient or Partner has history of Genital Herpes: No, Rash or Viral illness since last mentrual period: No, Prior GBS-Infected child: No, History of STD: No, HIV Infection: No, History of Hepatitis: No, Recent travel outside of [place]: No, Concern for Hep exposure: No, Varicella immune: Yes Medical History Medical History: Negative: Diabetes, Hypertension, Heart disease, Auto-immune disorder, Kidney disease/UTI, Neurologic/epilepsy, Psychiatric, Depression/ depression, Hepatitis/liver disease, Varicosities/phlebitis, Thyroid dysfunction, Trauma/domestic violence, History of blood transfusions, D (Rh) Sensitized, Pulmonary (e.g.,TB,Asthma), Seasonal allergies, Drug/latex allergies/reactions, Breast, Adult Literacy Instructor surgery, Operations/hospitalizations, Anesthetic complications, History of abnormal pap, Uterine anomaly/lesvia, Infertility, Anti-retroviral treatment, Relevant family history, Other ACOG First Trimester First Trimester: Discussed ROS Const Denies fever(s), Reports system reviewed and no additional complaints, except as docu, Reports fatigue Eyes Reports system reviewed and no additional complaints, except as docu ENT Reports system reviewed and no additional complaints, except as docu Card Denies chest pain, Denies shortness of breath Resp Reports system reviewed and no additional complaints, except as docu, Denies shortness of breath, Denies cough GI Reports nausea, Denies abdominal pain Reports system reviewed and no additional complaints, except as docu Musc Reports system reviewed and no additional complaints, except as docu Skin/Breast Reports system reviewed and no additional complaints, except as docu Neuro Yes system reviewed and no additional complaints, except as docu Psych Reports system reviewed and no additional complaints, except as docu Endo Reports fatigue, Reports system reviewed and no additional complaints, except as docu Exam Const General: healthy appearing, comfortable, no acute distress Orientation: alert [facility] Head: normal to inspection, atraumatic, normocephalic Ears: external ears normal, hearing grossly normal bilaterally Nose: nares normal, external nose normal Mouth: oral mucosae normal Teeth and gingiva: dentition normal Eyes General: appearance normal, both eyes and all related structures Neck Neck: no lymphadenopathy, supple, normal visual inspection Thyroid: thyroid normal Resp Effort AND Inspection: normal respiratory effort GI Inspection: normal to inspection Palpation: soft, no hepatosplenomegaly General: bladder normal to palpation External Female Exam: normal external appearance, normal appearance of the urethra Urethra: normal appearance of the urethra Speculum Exam - Vagina: normal appearance of the vagina, normal vaginal discharge Speculum Exam - Cervix: normal appearance of the cervix Bimanual Exam- Vagina AND Uterus: bladder normal to palpation, normal bimanual exam, uterus non-tender, other Bimanual Exam- Adnexa, other: adnexae non-tender Skin General: no rashes or lesions noted Neuro Motor: muscle tone normal throughout, no movement abnormalities noted Extrem General: normal to inspection, full ROM Assessment AND Plan Problems 1. Encounter for supervision of other normal in first trimester Z34.81 JENNIFER 11/06/18 Thiago Morel [place] 2. BMI 33.0-33.9,adult Z68.33 first trimester glucola, diet/exercise in discussed Plan Patient oriented to practice and discussed care expectations and screenings. ACOG book offered to patient. labs and 19-20 week anatomy ultrasound ordered. see problem list details for plan information. Genetic screening offered to patient and patient chose: considering Orders Orders: Supplemental Info ACOG book given and patient encouraged to read about nutrition, exercise, weight gain, and food avoidance in . Coding Level of Care Code OB Routine Diagnoses Encounter for supervision of other normal in first trimester Z34.81 Normal : other normal Trimester: first trimester BMI 33.0-33.9,adult Z68.33 03/31/18 0959 <Electronically signed by Joelle Mcdonald MD> Date Joelle Mcdonald MD Cosigner Signature: Date (if applicable) CC: REPORTING DEVELOPER OFFICE VISIT Observed: 02/01/2018 Status: F Source: SAIRA REPORT 9:34 AM [facility] [address] [place] [address] OFFICE VISIT Date of Service: 02/01/18 MR#: [id number] Acct: [id number] Name: JOE BHAGAT Rep #: [id number] : 1990 Provider: OTTO Levine Age/Sex: 27/F [place] [facility] [place]: [place] Intake Vital Signs02/01/18 Height 5 ft 6 in 02/01/18 Weight: 195 lb 02/01/18 Body Mass Index (BMI) 31.4 02/01/18 Blood Pressure 127/91 Intake Visit Reasons: remove iud Chief Complaint: IUD Removal Precision Assembly Inspector Required: No Is patient in pain?: No Allergies No Known Allergies Allergy (Verified 02/01/18 09:11) Is last menstrual period known: Yes Last Menstral Period: 01/28/18 Post menopausal: No Patient : No : No PFSH PFSH Social History Smoking Status: Never smoker alcohol intake: never substance use type: does not use caffeine: Yes frequency: 3-4 times per week seatbelt use: always do you feel safe at home: Yes additional social history: Lion Wilson Patient works at [employer] Pregancy History 2 Elective abortions Hx Para 2 Spontaneous abortions Past Pregnancies Del. DateName GA/Weeks Outcome Route Bth WeighInfant GeLabor LgtAnesthesiDel LocatProvider FOB t n h a n HPI remove iud: Details: JOE BHAGAT is a 27 year old who presents for removal of IUD to attempt Female Reproductive History Last Menstral Period: 01/28/18 Office Procedures IUD Removal IUD Removal Details: Sign out documentation: Completed Procedure: Speculum placed in vagina, IUD string visualized and grasped with ring forceps. IUD easily removed and patient tolerated well Assessment AND Plan Problems 1. Encounter for IUD removal Z30.432 Plan Start vitamin. Call with positive home UPT Orders Orders: Coding Level of Care Code No Charge Diagnoses Encounter for IUD removal Z30.432 02/01/18 0934 <Electronically signed by Silvia SIMPSON> Date Silvia SIMPSON Cosigner Signature: Date (if applicable) CC: ALLERGIES ALLERGIES DATE TYPE / CODE NAME / CODE REACTION SEVERITY SOURCE 11/07/2018 Drug No Known Unknown [place] [facility] Allergy/4160 Allergies/F00 Hospital 51575(SNOMED 7728910(RXNOR Repository CT) M) ENCOUNTERS ENCOUNTERS ADMIT/DISCHARGE ACCOUNT ADMITTING ENCOUNTER LOCATION SOURCE NUMBER CLASS 11/07/2018/ [id number] [place] [facility] 0 [facility] ing:ED Repository 11/07/2018/ [id number] Ambulatory BMSBuilding:B [place] 9 0 [facility] Repository 10/26/2018 [id number] Ambulatory BMSBuilding:B [place] 1 [facility] Repository 10/23/2018/ [id number] Tamara, Inpatient [place] 9 8 Joelle Encounter [facility] ing:WPRoom: Repository RO555Ery: 1 10/23/2018 [id number] Tamara, Ambulatory BMSBuilding:B [place] 6 Joelle [facility] Repository 10/23/2018 [id number] Yefrijaclyn, Ambulatory BMSBuilding:B [place] 4 Joelle [facility] Repository 10/23/2018/ [id number] Ambulatory [place] Sair[place] 9 7 [facility] ing:WPOUTRoom Repository : WP014 10/23/2018/ [id number] Ambulatory BMSBuilding:B [place] 9 0 [facility] Repository 10/19/2018/ [id number] Ambulatory [place] 9 0 [facility] ing:WPOUTRoom Repository : WP013 10/19/2018/ [id number] Ambulatory BMSBuilding:B [place] 9 3 [facility] Repository 10/16/2018 [id number] Ambulatory [place] 6 [facility] ing:OPUS Repository 10/13/2018 [id number] Ambulatory [place] Saira 7 [facility] ing:LABSPEC Repository 10/13/2018/ [id number] Ambulatory BMSBuilding:B [place] 8 9 [facility] Repository 09/27/2018/ [id number] Ambulatory BMSBuilding:B [place] 8 8 [facility] Repository 09/15/2018/ [id number] Ambulatory BMSBuilding:B [place] 8 7 [facility] Repository 09/01/2018/ [id number] Ambulatory BMSBuilding:B [place] 8 5 [facility] Repository 08/18/2018 [id number] Ambulatory [place] 6 [facility] ing:PAVLAB Repository 08/18/2018/ [id number] Ambulatory BMSBuilding:B [place] 8 3 [facility] Repository 08/04/2018/ [id number] Ambulatory BMSBuilding:B [place] 8 1 [facility] Repository 07/21/2018/ [id number] Ambulatory BMSBuilding:B [place] 8 1 [facility] Repository 06/23/2018/ [id number] Ambulatory BMSBuilding:B [place] 8 0 [facility] Repository 06/12/2018 [id number] Ambulatory [place] 5 [facility] Hospital ing:US Repository 05/27/2018 [id number] Ambulatory [place] Sair[place] 7 [facility] ing:DC Repository 05/26/2018/ [id number] Ambulatory BMSBuilding:B [place] 8 9 [facility] Repository 04/28/2018/ [id number] Ambulatory BMSBuilding:B [place] 8 8 [facility] Repository 04/24/2018/ [id number] Ambulatory [place] 8 5 [facility] ing[facility]DC Repository 04/13/2018/ [id number] Ambulatory [place] 8 4 [facility] ing:DC Repository 04/10/2018 [id number] Ambulatory [place] [facility] 0 [facility] Repository 03/31/2018 [id number] Ambulatory [place] Saira 2 [facility] ing:LABSPEC Repository 03/31/2018 [id number] Ambulatory [place] 2 [facility] ing:POLAB3 Repository 03/31/2018/ [id number] Ambulatory BMSBuilding:B [place] 8 3 [facility] Repository 02/01/2018/ [id number] Ambulatory BMSBuilding:B [place] 8 3 [facility] Repository 01/10/2018 [id number] Ambulatory BMSBuilding:B [place] 1 [facility] Repository PAYERS PAYERS ENCOUNTER GUARANTOR PAYER SUBSCRIBER SOURCE 11/07/2018 JOE Parada Primary DESTINEE MOSERDOB: Saira [id number] IRMA Insurance:ANTHEMPolic [id number] [facility] [place] Number: [facility] [address]Qdx: (330) [id number] Repository [phone] (HP) Date:5662-34-13ZY [address] [address]ZI: 11/07/2018 Secondary NOT GIVENUNK [place] Insurance:SELF PAY [facility] Number: Effective Repository Date:2018-11-07 11/07/2018 JOE Parada Primary DESTINEE MOSERDOB: [place] [id number] IRMA Insurance:ANTHEMPolic [id number] [facility] Number: Hospital [address]Pye: (330) [id number] Repository [phone] (HP) Date:1129-91-48VB [facility] [address] [place] [address] 99055UT: 11/07/2018 Secondary NOT GIVENUNK [place] Insurance:SELF PAY [facility] Number: Effective Repository Date:2018-11-07 10/26/2018 JOE Parada Primary NOT GIVENUNK [place] [id number] IRMA Insurance:SELF PAY [facility] 10688Sju: (330) Number: Effective Repository [phone] (HP) Date:2018-10-26 10/23/2018 JOE Parada Primary DESTINEE MOSERDOB: [place] [id number] IRMA Insurance:ANTHEMPolic [id number] [facility] [place] Number: Hospital [id number]: (330) [id number] Repository [phone] (HP) Date:4509-24-29ZO [address] [place] [address] 18408BU: 10/23/2018 Secondary NOT GIVENUNK [place] Insurance:SELF PAY [facility] Effective Repository Date:2018-10-23 10/23/2018 JOE Parada Primary DESTINEE SALESERDOB: [place] [id number] IRMA Insurance:ANTHEMPolic [id number] [facility] [place] Number: Hospital [address]26[address]Skg: (330) [id number] Repository [phone] (HP) Date:8291-99-76SQ [address] [place] [address] 51972KP: 10/23/2018 Secondary NOT GIVENUNK [place] Insurance:SELF PAY [facility] Number: Effective Repository Date:2018-10-23 10/23/2018 JOE Parada Primary DESTINEE SALESERDOB: [place] [id number] IRMA Insurance:ANTHEMPolic [id number] [facility] [place] Number: Hospital [id number]: (330) [id number] Repository [phone] (HP) Date:7129-46-28CV [address] [place] [address] 72575AH: 10/23/2018 Secondary NOT GIVENUNK [place] Insurance:SELF PAY [facility] Number: Effective Repository Date:2018-10-23 10/23/2018 JOE Parada Primary DESTINEE SALESERDOB: [place] [id number] IRMA Insurance:ANTHEMPolic [id number] [facility] [place] Number: Hospital 36434Qml: (330) [id number] Repository [phone] (HP) Date:5248-82-86YY [address] [place] [address] 32757FU: 10/23/2018 Secondary NOT GIVENUNK [place] Insurance:SELF PAY [facility]: Effective Repository Date:2018-10-23 10/23/2018 JOE Parada Primary DESTINEE SALESERDOB: [place] [id number] IRMA Insurance:ANTHEMPolic [id number] [place] Number: Hospital [id number]: (330) [id number] Repository [phone] (HP) Date:3090-73-06QB [address]YLCWQCR [place] [address]TA: 10/23/2018 Secondary NOT GIVENUNK [place] Insurance:SELF PAY [facility] Number: Effective Repository Date:2018-10-23 10/19/2018 JOE T Primary DESTINEE MOSERDOB: [place] [id number] IRMA Insurance:ANTHEMPolic [id number] [facility] [place] Number: Hospital 119[address]Odb: (330) [id number] Repository [phone] (HP) Date:9151-82-02NJ [address]OSASY[address] [place] [address]NM: 10/19/2018 Secondary NOT GIVENUNK [place] Insurance:SELF PAY [facility] Number: Effective Repository Date:2018-10-19 10/19/2018 [facility] Primary DESTINEE MOSERDOB: [place] [id number] IRMA Insurance:ANTHEMPolic [id number] [facility] [place] Number: Hospital 22473Iwk: (330) [id number] Repository [phone] () Date:0156-88-43GU [address], [place] [address]EU: 10/19/2018 Secondary NOT GIVENUNK [place] Insurance:SELF PAY [facility] Number: Effective Repository Date:2018-10-19 10/16/2018 JOE T Primary DESTINEE MOSERDOB: [place] [id number] IRMA Insurance:ANTHEMPolic [id number] [facility] [place] Number: Hospital 29426Lsy: (330) [id number] Repository [phone] () Date:5060-78-93KI [address]NMTGLBM [place] [address]RW: 10/16/2018 Secondary NOT GIVENUNK [place] Insurance:SELF PAY [facility] Number[facility] Effective Repository Date:2018-09-18 10/13/2018 JOE Parada Primary DESTINEE BHAGATDOB: [place] [id number] IRMA Insurance:ANTHEMPolic [id number] [place] Number: Hospital 684[address]Hqo: (330) [id number] Repository [phone] () Date:4055-44-20SH [address] [place] [address] 12358OJ: 10/13/2018 Secondary NOT GIVENUNK [place] Insurance:SELF PAY [facility] Number: Effective Repository Date:2018-10-13 10/13/2018 JOE Parada Primary DESTINEE BHAGATDOB: [place] [id number] IRMA Insurance:ANTHEMPolic [id number] [facility] [place] Number: Hospital 42484Wxo: (330) [id number] Repository [phone] () Date:3575-04-51HI [address] [place] [address] 098[address]JS: 10/13/2018 Secondary NOT GIVENUNK [place] Insurance:SELF PAY [facility] Number: Effective Repository Date:2018-10-13 09/27/2018 JOE Parada Primary DESTINEE MEDINAB: [place] [id number] IRMA Insurance:ANTHEMPolic [id number] [facility] [place] Number: Hospital 67352Gpr: (330) [id number] Repository [phone] () Date:3915-86-24AI [address] [place] [address] 736[address]ME: 09/27/2018 Secondary NOT GIVENUNK [place] Insurance:SELF PAY [facility] Number: Effective Repository Date:2018-09-27 09/15/2018 JOE Parada Primary DESTINEE BHAGATDOB: [place] [id number] IRMA Insurance:ANTHEMPolic [id number] [place] Number: Hospital 6[address]Yru: (330) [id number] Repository [phone] () Date:8986-22-93YM [address] [place] [address] 15858IV: 09/15/2018 Secondary NOT GIVENUNK [place] Insurance:SELF PAY [facility] Number: Effective Repository Date:2018-09-15 09/01/2018 JOE Parada Primary DESTINEE BHAGATDOB: [place] [id number] IRMA Insurance:ANTHEMPolic [id number] [place] Number: Hospital 08[address]Dui: (330) [id number] Repository [phone] () Date:5641-30-86XD [address] [place] [address] 24788VK: 09/01/2018 Secondary NOT GIVENUNK [place] Insurance:SELF PAY [facility] Number: Effective Repository Date:2018-09-01 08/18/2018 JOE Parada Primary DESTINEE SALESERDOB: [place] [id number] IRMA Insurance:ANTHEMPolic [id number] [facility] [place] Number: Hospital 488[address]Jpd: (330 [id number] Repository [phone] () Date:0208-39-37IF [address] [place] [address] 61692GX: 08/18/2018 Secondary NOT GIVENUNK [place] Insurance:SELF PAY [facility] Number: Effective Repository Date:2018-08-18 08/18/2018 JOE Parada Primary DESTINEE BHAGATDOB: [place] [id number] IRMA Insurance:ANTHEMPolic [id number] [facility] [place] Number: Hospital 72742Cdw: (330 [id number] Repository [phone] () Date:4789-35-55EY [address]TXIB[address] [place] [address] 75934VO: 08/18/2018 Secondary NOT GIVENUNK [place] Insurance:SELF PAY [facility] Number: Effective Repository Date:2018-07-21 08/04/2018 JOE Parada Primary DESTINEE SALESERDOB: [place] [id number] IRMA Insurance:ANTHEMPolic [id number] [facility] [place] Number: Hospital [id number]: (330) [id number] Repository [phone] (HP) Date:2774-38-32ED [address] [place] [address] 89341RN: 08/04/2018 Secondary NOT GIVENUNK [place] Insurance:SELF PAY [facility] Number: Effective Repository Date:2018-08-04 07/21/2018 [facility] Primary DESTINEE MOSERDOB: [place] [id number] IRMA Insurance:ANTHEMPolic [id number] [facility] [place] Number: Hospital 246[address]Drk: (330) [id number] Repository [phone] () Date:5866-24-02OT [address] [place] [address] 26186UA: 07/21/2018 Secondary NOT GIVENUNK [place] Insurance:SELF PAY [facility] Number: Effective Repository Date:2018-06-26 06/23/2018 [facility] Primary DESTINEE MOSERDOB: [place] [id number] IRMA Insurance:ANTHEMPolic [id number] [facility] [place] Number: Hospital 77[address]Zna: (330) [id number] Repository [phone] () Date:5460-19-62JZ [address]UXMDLZX, [place] [address]LX: 06/23/2018 Secondary NOT GIVENUNK [place] Insurance:SELF PAY [facility] Number: Effective Repository Date:2018-06-13 06/12/2018 [facility] Primary DESTINEE MOSERDOB: [place] [id number] IRMA Insurance:ANTHEMPolic [id number] [facility] [place] Number: Hospital 434[address]Hjq: (330) [id number] Repository [phone] () Date:2683-99-23JN [address], [place] [address]II: 06/12/2018 Secondary NOT GIVENUNK [place] Insurance:SELF PAY [facility] Number: Effective Repository Date:2018-04-24 05/27/2018 JOE Parada Primary DESTINEE SALESERDOB: [place] [id number] IRMA Insurance:ANTHEMPolic [id number] [place] Number: Hospital 816[address]Tug: (330) [id number] Repository [phone] (HP) Date:0979-13-15ED [address]ZDAMCGX, [place] [address]QK: 05/27/2018 Secondary NOT GIVENUNK [place] Insurance:SELF PAY [facility] Number: Effective Repository Date:2018-05-17 05/26/2018 JOE Parada Primary DESTINEE SALESERDOB: [place] [id number] IRMA Insurance:ANTHEMPolic [id number] [place] Number: Hospital [id number]: (330) [id number] Repository [phone] (HP) Date:0362-22-74FT [address]DNMEYSW, [place] [address]GC: 05/26/2018 Secondary NOT GIVENUNK [place] Insurance:SELF PAY [facility] Number: Effective Repository Date:2018-05-26 04/28/2018 JOE Parada Primary DESTINEE SALESERDOB: [place] [id number] IRMA Insurance:ANTHEMPolic [id number] [facility] [place] Number: Hospital 24769Qwm: (330) [id number] Repository [phone] (HP) Date:7896-80-13OX [address]BVVLPFF, [place] [address]EY: 04/28/2018 Secondary NOT GIVENUNK [place] Insurance:SELF PAY [facility] Number: Effective Repository Date:2018-04-28 04/24/2018 JOE Parada Primary DESTINEE SALESERDOB: [place] [id number] IRMA Insurance:ANTHEMPolic [id number] [place] Number[place] Hospital 56337Naw: (330) [id number] Repository [phone] (HP) Date:6747-14-34SK [address] [place] [address] 18059OC: 04/24/2018 Secondary NOT GIVENUNK [place] Insurance:SELF PAY [facility] Number: Effective Repository Date:2018-04-16 04/13/2018 [facility] Primary DESTINEE SALESERDOB: [place] [id number] IRMA Insurance:ANTHEMPolic [id number] [place]: Hospital [id number]: (330) [id number] Repository [phone] () Date:4283-68-48IQ [address] [place] [address] 70857SM: 04/13/2018 Secondary NOT GIVENUNK [place] Insurance:SELF PAY [facility] Number: Effective Repository Date:2018-04-12 04/10/2018 [facility] DESTINEE SALESERDOB: [place] [id number] IRMA Insurance:ANTHEMPolic [id number] [facility] [place] Number: Hospital 69[address]Odc: (330) [id number] Repository [phone] () Date:3162-76-43IR [address]CCMLP[address] [place], [place] [id number]: 04/10/2018 Secondary NOT GIVENUNK [place] Insurance:SELF PAY [facility] Effective Repository Date:2018-04-03 03/31/2018 [facility] DESTINEE SALESERDOB: [place] [id number] IRMA Insurance:ANTHEMPolic [id number] [facility] [place] Number: Hospital [id number]: [phone]) [id number] Repository [phone] () Date:[id number] [id number] [place] [id number]: 03/31/2018 Secondary NOT GIVENUNK [place] Insurance:SELF PAY [facility] Number: Effective Repository Date:2018-03-31 03/31/2018 [facility] DESTINEE SALESERDOB: [place] [id number] IRMA Insurance:ANTHEMPolic [id number] [facility] [place] Number: [facility] [address]Ojl: [phone]) [id number] Repository [phone] (HP) Date:[id number] [address] [place] [address]OV: 03/31/2018 Secondary NOT GIVENUNK [place] Insurance:SELF PAY [facility]: Effective Repository Date:2018-03-31 03/31/2018 JOE Primary DESTINEE MOSERDOB: [place] [id number] IRMA Insurance:ANTHEMPolic [id number] [place] Number: Hospital [id number]: (330) [id number] Repository [phone] (HP) Date:[id number] [address] [place] [address] [place] [address]ON: 03/31/2018 Secondary NOT GIVENUNK [place] Insurance:SELF PAY [facility] Number: Effective Repository Date:2018-03-31 02/01/2018 [facility] Primary DESTINEE MOSERDOB: S[place] [id number] IRMA Insurance:ANTHEMPolic [id number] [place] Hospital [id number]: [phone]) [id number] Repository [phone] (HP) Date:[id number] [address] [place] [address] [place] [address]NC: 02/01/2018 Secondary NOT GIVENUNK [place] Insurance:SELF PAY [facility] Number: Effective Repository Date:2018-02-01 01/10/2018 JOE Primary DESTINEE SALESERDOB: S[place] [id number] IRMA Insurance:ANTHEMPolic [id number] [place] Hospital [id number]: [phone]) [id number] Repository [phone] (HP) Date:[id number] [address]QGZZJ[address]J, [place] [address]JF: 01/10/2018 Secondary NOT GIVENUNK [place] Insurance:SELF PAY [facility]: Effective Repository Date:2017-12-12
== END 2018-11-07 21:24 | disposition home or self-care (01) ==
PROVIDERS: Emergency Provider Emergency Medicine; Family Provider Student in an Organized Health Care Education/Training Program; PCP Student in an Organized Health Care Education/Training Program
DX: R10.31 Right lower quadrant pain (principal); R10.32 Left lower quadrant pain; R11.0 Nausea; M54.9 Dorsalgia, unspecified; Z86.32 Personal history of gestational diabetes
CPT/HCPCS: 74177; 80053; 81001; 85025; 96374; 96376; 99285; Q9967; A4216

== ENCOUNTER → 2019-01-18 07:03 | Outpatient (CLI) | payer BC, SELFPAY ==
[2018-12-14 10:39] VITALS: BMI 34.4
[2019-01-18 08:31] LABS: Glucose 75GTT - Fasting 87 mg/dL (70-99)
[2019-01-18 08:31] LABS: Glucose 75GTT - 30 minutes 132 mg/dL (100-160)
[2019-01-18 10:34] LABS: Glucose 75GTT - 120 minutes 131 mg/dL (70-140)
[2019-01-18 10:41] LABS: Glucose 75GTT - 60 minutes 172 mg/dL (100-160)
== END ==
PROVIDERS: Nurse Practitioner Women's Health; Family Provider Student in an Organized Health Care Education/Training Program; PCP Student in an Organized Health Care Education/Training Program; Referring Provider Obstetrics & Gynecology; Visit Provider Obstetrics & Gynecology
DX: O24.410 Gestational diabetes mellitus in pregnancy, diet controlled (principal); Z3A.00 Weeks of gestation of pregnancy not specified
CPT/HCPCS: 36415; 82951; 82952

== ENCOUNTER → 2019-03-27 07:51 | Outpatient (CLI) | payer BC, SELFPAY ==
[2019-01-22 10:46] VITALS: BMI 34.4
--- NOTE | 2019-03-27 07:54 | US_ITS ---
STUDY: ULTRASOUND OF THE FEMALE PELVIS - COMPLETE REASON FOR EXAM: Female, 28 years old. Menorrhagia with IUD. LMP: TECHNIQUE: Transabdominal and Transvaginal TECHNICAL QUALITY: Adequate. COMPARISON: None. FINDINGS: The uterus is anteverted and is in a midline position. The uterus measures 9.8 x 5.5 x 6.6 cm. Normal uterine cervix. The endometrium measures 4.5 mm in thickness, and is hyperechoic. There is no demonstrated endometrial mass. There is no demonstrated myometrial mass. I.U.D. - The patient does have an I.U.D. that is visualized within the lower uterine segment. The right ovary is visualized. The right ovary measures 3.0 x 3.0 x 1.4 cm. There is no right ovarian cyst or ovarian mass. There is no visualized right adnexal mass or complex lesion. There is normal arterial and normal venous vascularity. The left ovary is visualized. The left ovary measures 7.3 x 5.4 x 4.2 cm. There is a 4.8 x 3.9 x 3.9 cm complex left ovarian cyst.. There is normal arterial and normal venous vascularity. There is no fluid in the cul-de-sac. Polycystic ovary disease: No. US/Pelvic (Non ) IMPRESSION: Low lying intrauterine device within the lower uterine segment. Enlarged left ovary secondary to a complex left ovarian cyst measuring 4.8 x 3.9 x 3.9 cm, recommend follow-up ultrasound in 6-8 weeks. Electronically Signed: Erica Bartlett MD at 16:54 EDT Tel , Service support ,
--- NOTE | 2019-03-27 08:10 | US_ITS ---
STUDY: ULTRASOUND OF THE FEMALE PELVIS - COMPLETE REASON FOR EXAM: Female, 28 years old. Menorrhagia with IUD. LMP: TECHNIQUE: Transabdominal and Transvaginal TECHNICAL QUALITY: Adequate. COMPARISON: None. FINDINGS: The uterus is anteverted and is in a midline position. The uterus measures 9.8 x 5.5 x 6.6 cm. Normal uterine cervix. The endometrium measures 4.5 mm in thickness, and is hyperechoic. There is no demonstrated endometrial mass. There is no demonstrated myometrial mass. I.U.D. - The patient does have an I.U.D. that is visualized within the lower uterine segment. The right ovary is visualized. The right ovary measures 3.0 x 3.0 x 1.4 cm. There is no right ovarian cyst or ovarian mass. There is no visualized right adnexal mass or complex lesion. There is normal arterial and normal venous vascularity. The left ovary is visualized. The left ovary measures 7.3 x 5.4 x 4.2 cm. There is a 4.8 x 3.9 x 3.9 cm complex left ovarian cyst.. There is normal arterial and normal venous vascularity. There is no fluid in the cul-de-sac. Polycystic ovary disease: No. US/Transvaginal Non- IMPRESSION: Low lying intrauterine device within the lower uterine segment. Enlarged left ovary secondary to a complex left ovarian cyst measuring 4.8 x 3.9 x 3.9 cm, recommend follow-up ultrasound in 6-8 weeks. Electronically Signed: Erica Bartlett MD at 16:54 EDT Tel , Service support ,
[2019-03-27 08:44] LABS: Absolute Neutrophil Count 5.2 X10^3/uL (2.0-7.7); Basophil# 0.04 X10^3/uL; Basophil% 0.5 % (0-1); Eosinophil# 0.22 X10^3/uL; Eosinophils% 2.5 % (0-5); Hematocrit 41.2 % (37-47); Hemoglobin 14.1 g/dl (12.0-15.0); Lymphocyte % 32.3 % (19-41); Mean Corp Hgb Conc 34.2 g/gl (32-36); Mean Corpuscular Hgb 29.9 pg (27.0-32.0); Mean Corpuscular Volume 87.5 fL (81-99); Mean Platelet Vol. 8.4 fl (6.2-12.0); Monocyte# 0.43 X10^3/uL; Neutrophil # 5.16 X10^3/uL (2.7-7.7); Neutrophil % 59.5 % (47-70); Platelet Count 281 K/mm3 (150-450); RBC Distribution Width CV 12.5 % (11.6-14.6); RBC Distribution Width SD 40.3 fl (35.1-43.9); Red Blood Count 4.71 M/mm3 (4.2-5.4); White Blood Count 8.7 K/mm3 (4.4-11.0)
[2019-03-27 08:47] LABS: POSITIVE COUNT NO; POSITIVE DIFFERENTIAL NO; POSITIVE MORPHOLOGY NO
[2019-03-27 09:13] LABS: Thyroid Stim Hormone (TSH) 1.51 uIU/mL (0.358-3.74)
== END ==
PROVIDERS: Family Provider Student in an Organized Health Care Education/Training Program; PCP Student in an Organized Health Care Education/Training Program; Referring Provider Obstetrics & Gynecology; Visit Provider Obstetrics & Gynecology
DX: Z34.90 Encounter for supervision of normal pregnancy, unspecified, unspecified trimester (principal); T83.89XA Other specified complication of genitourinary prosthetic devices, implants and grafts, initial encounter; N92.0 Excessive and frequent menstruation with regular cycle; R10.9 Unspecified abdominal pain
CPT/HCPCS: 36415; 76830; 76856; 84443; 85025; 93976

== ENCOUNTER → 2019-05-11 07:57 | Outpatient (CLI) | payer BC, SELFPAY ==
[2019-03-29 15:47] VITALS: BMI 37.3
--- NOTE | 2019-05-11 07:58 | US_ITS ---
STUDY: ULTRASOUND OF THE FEMALE PELVIS - COMPLETE REASON FOR EXAM: Female, 28 years old. Pain, history of ovarian cyst LMP: 04/26/2019 TECHNIQUE: Transabdominal and Transvaginal TECHNICAL QUALITY: Adequate. COMPARISON: None. FINDINGS: The uterus is anteverted and is in a midline position. The uterus measures 9.8 x 6.3 x 5.1 cm. Normal uterine cervix. The endometrium measures 11 mm in thickness, and is hyperechoic. There is no demonstrated endometrial mass. There is no demonstrated myometrial mass. I.U.D. - The patient does not have an I.U.D. The right ovary is visualized. The right ovary measures 3.8 x 2.7 x 2.0 cm. There is no right ovarian cyst or ovarian mass. There is no visualized right adnexal mass or complex lesion. There is normal arterial and normal venous vascularity. The left ovary is visualized. The left ovary measures 4.8 x 3.6 x 3.3 cm. There is a complex 4.0 x 2.8 x 2.8 cm cyst containing an internal 1.6 x 1.9 cm cyst. When compared to the previous study cyst is becoming smaller. There is normal arterial and normal venous vascularity. There is no fluid in the cul-de-sac. The bladder is sonographically normal US/Pelvic (Non ) IMPRESSION: Resolving complex left ovarian cyst, continued follow-up recommended to assure complete resolution. No new suspicious findings Electronically Signed: Jimenez Quintero MD at 9:32 EDT , Service support ,
--- NOTE | 2019-05-11 07:58 | US_ITS ---
STUDY: ULTRASOUND OF THE FEMALE PELVIS - COMPLETE REASON FOR EXAM: Female, 28 years old. Pain, history of ovarian cyst LMP: 04/26/2019 TECHNIQUE: Transabdominal and Transvaginal TECHNICAL QUALITY: Adequate. COMPARISON: None. FINDINGS: The uterus is anteverted and is in a midline position. The uterus measures 9.8 x 6.3 x 5.1 cm. Normal uterine cervix. The endometrium measures 11 mm in thickness, and is hyperechoic. There is no demonstrated endometrial mass. There is no demonstrated myometrial mass. I.U.D. - The patient does not have an I.U.D. The right ovary is visualized. The right ovary measures 3.8 x 2.7 x 2.0 cm. There is no right ovarian cyst or ovarian mass. There is no visualized right adnexal mass or complex lesion. There is normal arterial and normal venous vascularity. The left ovary is visualized. The left ovary measures 4.8 x 3.6 x 3.3 cm. There is a complex 4.0 x 2.8 x 2.8 cm cyst containing an internal 1.6 x 1.9 cm cyst. When compared to the previous study cyst is becoming smaller. There is normal arterial and normal venous vascularity. There is no fluid in the cul-de-sac. The bladder is sonographically normal US/Transvaginal Non- IMPRESSION: Resolving complex left ovarian cyst, continued follow-up recommended to assure complete resolution. No new suspicious findings Electronically Signed: Jimenez Quintero MD at 9:32 EDT , Service support ,
== END ==
PROVIDERS: Family Provider Student in an Organized Health Care Education/Training Program; PCP Student in an Organized Health Care Education/Training Program; Referring Provider Nurse Practitioner Women's Health; Visit Provider Nurse Practitioner Women's Health
DX: N83.202 Unspecified ovarian cyst, left side (principal)
CPT/HCPCS: 76830; 76856; 93976

== ENCOUNTER → 2019-07-09 08:24 | Outpatient (CLI) | payer BC, SELFPAY ==
[2019-03-29 15:47] VITALS: BMI 37.3
--- NOTE | 2019-07-09 08:26 | US_ITS ---
STUDY: ULTRASOUND TRANSVAGINAL CLINICAL: Female, 29 years old. Ovarian Cyst(s)DINO - Pelvic, Tvag TECHNIQUE: Transvaginal COMPARISON: Transabdominal study same date earlier time, transvaginal ultrasound May 11, 2019 FINDINGS: Normal uterine size measuring 9.8 x 6.6 x 5.3 cm in maximal craniocaudal dimension. There are no myometrial masses. Normal endometrial thickness measuring 11 mm. There are no endometrial masses, and there is no fluid in the endometrial cavity. Normal uterine cervix. Normal right ovary, measuring 3.6 x 3.5 x 1.7 cm. There are multiple follicles without a dominant cyst. Normal left ovary, measuring 4.7 x 4.6 x 3.3 cm. There are multiple follicles with a dominant cyst measuring 2.2 x 2.5 x 1.9 cm. This cyst appears to have minimal echoes within it may represent a small hemorrhagic cyst. Thin septation also noted. No suspicious solid components. There is no free fluid in the pelvis. Polycystic ovary disease: No. US/Transvaginal Non- IMPRESSION: Dominant left ovarian cyst with minimal intrinsic echoes most consistent with that of a hemorrhagic cyst. There is also a thin septation. When compared to the prior ultrasound of the pelvis the smaller cystic component appears to be involuting. Electronically Signed: Jia Priest MD at 13:19 EDT , Service support ,
--- NOTE | 2019-07-09 08:26 | US_ITS ---
STUDY: ULTRASOUND TRANSVAGINAL CLINICAL: Female, 29 years old. Ovarian Cyst(s)DINO - Pelvic, Tvag TECHNIQUE: Transvaginal COMPARISON: Transabdominal study same date earlier time, transvaginal ultrasound May 11, 2019 FINDINGS: Normal uterine size measuring 9.8 x 6.6 x 5.3 cm in maximal craniocaudal dimension. There are no myometrial masses. Normal endometrial thickness measuring 11 mm. There are no endometrial masses, and there is no fluid in the endometrial cavity. Normal uterine cervix. Normal right ovary, measuring 3.6 x 3.5 x 1.7 cm. There are multiple follicles without a dominant cyst. Normal left ovary, measuring 4.7 x 4.6 x 3.3 cm. There are multiple follicles with a dominant cyst measuring 2.2 x 2.5 x 1.9 cm. This cyst appears to have minimal echoes within it may represent a small hemorrhagic cyst. Thin septation also noted. No suspicious solid components. There is no free fluid in the pelvis. Polycystic ovary disease: No. US/Pelvic (Non ) IMPRESSION: Dominant left ovarian cyst with minimal intrinsic echoes most consistent with that of a hemorrhagic cyst. There is also a thin septation. When compared to the prior ultrasound of the pelvis the smaller cystic component appears to be involuting. Electronically Signed: Jia Priest MD at 13:19 EDT , Service support ,
[2019-07-09 11:36] LABS: Anion Gap 5 (5-15); BUN 14 mg/dL (7-18); BUN/Creat Ratio 19.9 RATIO (10-20); Calcium,Total 8.8 mg/dL (8.5-10.1); Chloride 106 mmol/L (98-107); EST Glomerular Filtration Rate 104 mL/min (>60); Est Glom Filt Rate - Afr Amer 126 mL/min (>60); Glucose 103 mg/dL (74-106); Potassium 3.8 mmol/L (3.5-5.1); Sodium Level 139 mmol/L (136-145)
== END ==
PROVIDERS: Family Provider Student in an Organized Health Care Education/Training Program; PCP Student in an Organized Health Care Education/Training Program; Referring Provider Obstetrics & Gynecology; Visit Provider Obstetrics & Gynecology
DX: N83.202 Unspecified ovarian cyst, left side (principal); I10 Essential (primary) hypertension
CPT/HCPCS: 36415; 76830; 76856; 80048; 93976

== ENCOUNTER → 2021-05-06 18:27 | Outpatient (CLI) | payer BC, SELFPAY ==
[2021-05-04 11:56] VITALS: BMI 37.3
--- NOTE | 2021-05-06 18:30 | US_ITS ---
STUDY: ULTRASOUND OF THE FEMALE PELVIS - COMPLETE REASON FOR EXAM: Female, 30 years old. IUD CHECK- AUB LMP: Unknown TECHNIQUE: Transabdominal and Transvaginal TECHNICAL QUALITY: Adequate. COMPARISON: None. FINDINGS: The uterus is anteverted and is in a midline position. The uterus measures 10.7 cm x 6.1 sided by 3.5 cm. There is a Nabothian cyst of the cervix. The endometrium measures 7 mm in thickness, and is hyperechoic. There is no demonstrated endometrial mass. There is no demonstrated myometrial mass. I.U.D. - The patient does have an I.U.D. . The IUD is in the midline. The right ovary is visualized. The right ovary measures 4.4 cm x 3.3 cm x 2.7 cm. Follicles are seen within the ovary. The largest measures 1.9 cm x 2 cm x 1.7 cm. There is no visualized right adnexal mass or complex lesion. There is normal arterial and normal venous vascularity. The left ovary is visualized. The left ovary measures 5.6 cm x 3.5 cm x 2.9 cm. There is a 4 cm x 2.5 cm x 2.1 cm cyst. There is no visualized left adnexal mass or complex lesion. There is normal arterial and normal venous vascularity. There is no fluid in the cul-de-sac. The pre void volume of the bladder was 623 ml. US/Pelvic (Non ) IMPRESSION: 4 cm x 2.5 cm x 2.1 cm cyst in the left ovary. Follicles are seen in the right ovary. The IUD is within the central portion of the endometrium. Electronically Signed: Adam Hernandez MD at 20:34 EDT , Service support ,
--- NOTE | 2021-05-06 18:30 | US_ITS ---
STUDY: ULTRASOUND OF THE FEMALE PELVIS - COMPLETE REASON FOR EXAM: Female, 30 years old. IUD CHECK- AUB LMP: Unknown TECHNIQUE: Transabdominal and Transvaginal TECHNICAL QUALITY: Adequate. COMPARISON: None. FINDINGS: The uterus is anteverted and is in a midline position. The uterus measures 10.7 cm x 6.1 sided by 3.5 cm. There is a Nabothian cyst of the cervix. The endometrium measures 7 mm in thickness, and is hyperechoic. There is no demonstrated endometrial mass. There is no demonstrated myometrial mass. I.U.D. - The patient does have an I.U.D. . The IUD is in the midline. The right ovary is visualized. The right ovary measures 4.4 cm x 3.3 cm x 2.7 cm. Follicles are seen within the ovary. The largest measures 1.9 cm x 2 cm x 1.7 cm. There is no visualized right adnexal mass or complex lesion. There is normal arterial and normal venous vascularity. The left ovary is visualized. The left ovary measures 5.6 cm x 3.5 cm x 2.9 cm. There is a 4 cm x 2.5 cm x 2.1 cm cyst. There is no visualized left adnexal mass or complex lesion. There is normal arterial and normal venous vascularity. There is no fluid in the cul-de-sac. The pre void volume of the bladder was 623 ml. US/Transvaginal Non- IMPRESSION: 4 cm x 2.5 cm x 2.1 cm cyst in the left ovary. Follicles are seen in the right ovary. The IUD is within the central portion of the endometrium. Electronically Signed: Adam Hernandez MD at 20:34 EDT , Service support ,
[2021-05-07 15:17] LABS: HPV APTIMA, High Risk Negative (Negative)
== END ==
PROVIDERS: PCP Student in an Organized Health Care Education/Training Program; Referring Provider Nurse Practitioner Women's Health; Visit Provider Nurse Practitioner Women's Health
DX: Z12.4 Encounter for screening for malignant neoplasm of cervix (principal); Z30.431 Encounter for routine checking of intrauterine contraceptive device; N83.202 Unspecified ovarian cyst, left side
CPT/HCPCS: 76830; 76856; 87624; 88175; G0145

== ENCOUNTER 2023-02-20 06:59 | Emergency (ER) | payer BC, SELFPAY ==
[2023-02-20 07:00] VITALS: BP 162/112; PULSE 96; RESP 22; TEMP 36.1; O2SAT 98
--- NOTE | 2023-02-20 07:23 | ED.VIS.GI ---
HPI HPI - GI History of Present Illness Chief Complaint: Abd Pain Informant: patient Abdominal Pain/Flank Pain Onset: Today Context: Sudden Onset Timing: Continuous Quality: Sharp Location: LLQ Worsened by: - (Breathing) Relieved by: Nothing Nausea/Vomiting/Emesis GI Symptom: Positive for Nausea Diarrhea/Melena/Hematochezia GI Symptom: Negative for Diarrhea, Melena or Hematochezia Associated Symptoms Associated Symptoms: Negative for Dysuria, Frequency or Hematuria Narrative Narrative: Patient presents with left quadrant abdominal pain that began 5 days ago. Patient states it went away and then came back again today. Patient describes her pain as sharp. Patient states the pain is over the left lower abdomen. Patient states the pain radiates into her back. Patient states her pain is worse with breathing. Patient states nothing seems to help with the pain. Patient states she has a history of ovarian cysts and thought that her pain was due to the. Patient does admit to some nausea but denies any vomiting. Patient denies any diarrhea, melena, or hematochezia. Patient denies any dysuria, frequency, or hematuria. Patient states her last menstrual period was approximately 1 to 2 weeks ago. [facility] Medical History (Updated 02/20/23 @ 08:[address] Carlton Vaughn DO) Hypertension Ovarian cyst, left Home Medications lisinopril 10 mg tablet 10 mg PO DAILY 09/28/19 [History Last Taken Unknown] hydrocodone-acetaminophen 5-325mg 5mg-325mg 1 tab PO Q6H PRN PRN Pain 3 days #10 TABLETS 02/20/23 [Rx Last Taken Unknown] Allergy/AdvReac Type Severity Reaction Status Date / Time No Known Allergies Allergy Verified 02/20/23 07:06 Surgical History no surgical history no surgical history Social History Smoking Status: Never smoker alcohol intake: never substance use type: does not use caffeine: No what type of physical activity do you participate in: walking frequency: 3-4 times per week seatbelt use: always do you feel safe at home: Yes additional social history: Lion LOPEZ ROS ED Constitutional Constitutional ED: Denies chills or fever(s) Eyes Eyes: Denies blurry vision or change in vision ENT ENT ED: Denies rhinorrhea or sore throat Cardiovascular Cardiovascular: Denies chest pain or palpitations Respiratory/Chest Respiratory/Chest: Denies cough or dyspnea Gastrointestinal Gastrointestinal: Reports abdominal pain and nausea; Denies vomiting Genitourinary Genitourinary ED: Denies dysuria or hematuria Musculoskeletal Musculoskeletal: Reports back pain; Denies neck pain Integumentary Denies abscess or rash Neurologic Neurologic: Denies headache(s) or weakness Allergic/Immunologic Allergic/Immunologic ED: Denies mouth swelling or urticaria EXAM Physical Exam Const Vital Signs: 02/20/23 07:00 Temperature 97 F L Temperature Source Temporal Pulse Rate 96 Respiratory Rate 22 H Blood Pressure 162/112 H Blood Pressure Mean 128 Pulse Ox 98 Oxygen Delivery Method Room Air Positive well nourished, well developed and obese General Appearance ED: well developed and NAD Nutritional Appearance: obese HEENT Reports moist mucous membranes Neck supple and no JVD Resp normal respiratory effort and clear to auscultation bilaterally Cardio regular rate, regular rhythm and no murmurs GI normal to inspection, nondistended, normoactive bowel sounds Palpation: soft and tender LLQ; Negative for guarding or rebound tenderness present Back/Spine General Back: CVA tenderness left Extremity normal to inspection General Extremety ED: Negative for edema or tenderness General Extremity: Negative for edema Neuro oriented x3, CN's II-XII intact bilaterally, moves all extremities and no sensory deficits noted Sensorium / Orientation: alert Motor Exam: strength 5/5 throughout Psych mental status grossly normal Skin no rashes or lesions noted MDM MDM MDM Narrative Medical decision making narrative: Differential diagnosis includes ovarian cyst, ureteral calculus, ovarian torsion, urinary tract infection, pyelonephritis, ectopic , diverticulitis, bowel obstruction, perforation, and gastroenteritis. CT scan of the abdomen pelvis will be obtained to assess for ureteral calculus, pyelonephritis, diverticulitis, bowel obstruction, and perforation. CBC will be obtained to assess for leukocytosis and anemia. Basic metabolic profile will be obtained to assess for electrolyte abnormality and renal function. Urinalysis will be obtained to assess for urinary tract infection and hematuria. Serum hCG will be obtained to assess for . Lab Data Attestation: I reviewed the patient's lab results. Lab results narrative: CBC was reviewed and shows a mild leukocytosis of 12.1. Basic metabolic profile was reviewed and was within normal limits. Serum hCG was reviewed and was negative. Urinalysis was reviewed. Occult blood was 250 with 25-50 red blood cells. There is no evidence of urinary tract infection. Labs: Laboratory Results - last 24 hr 02/20/23 02/20/23 02/20/23 07:20 07:20 07:20 WBC 12.1 H RBC 4.89 Hgb 15.0 Hct 44.0 MCV 90.0 MCH 30.7 MCHC 34.1 RDW Std Deviation 39.0 RDW Coeff of Ritchie 12.0 Plt Count 395 MPV 8.6 Immature Gran % (Auto) 0.400 Neut % (Auto) 53.4 Lymph % (Auto) 37.7 Seminole % (Auto) 6.3 Eos % (Auto) 1.6 Baso % (Auto) 0.6 Absolute Neuts (auto) 6.5 Absolute Lymphs (auto) 4.56 H Nucleated RBC % 0 Sodium 141 Potassium 4.0 Chloride 109 H Carbon Dioxide 24.0 Anion Gap 8 BUN 11 Creatinine 0.80 Est GFR (MDRD) Af Amer 106 Est GFR (MDRD) Non-Af 88 BUN/Creatinine Ratio 13.8 Glucose 113 H Calcium 9.3 Serum , Qual NEGATIVE Urine Color Urine Clarity Urine pH Ur Specific Moodus Urine Protein Urine Glucose (UA) Urine Ketones Urine Occult Blood Urine Nitrite Urine Bilirubin Urine Urobilinogen Ur Leukocyte Esterase Urine RBC Urine WBC Ur Squamous Epith Cells Urine Bacteria Urine Mucus 02/20/23 08:05 WBC RBC Hgb Hct MCV MCH MCHC RDW Std Deviation RDW Coeff of Ritchie Plt Count MPV Immature Gran % (Auto) Neut % (Auto) Lymph % (Auto) Seminole % (Auto) Eos % (Auto) Baso % (Auto) Absolute Neuts (auto) Absolute Lymphs (auto) Nucleated RBC % Sodium Potassium Chloride Carbon Dioxide Anion Gap BUN Creatinine Est GFR (MDRD) Af Amer Est GFR (MDRD) Non-Af BUN/Creatinine Ratio Glucose Calcium Serum , Qual Urine Color Yellow Urine Clarity Sl. Cloudy Urine pH 6.0 Ur Specific Moodus 1.015 Urine Protein 30 H Urine Glucose (UA) Normal Urine Ketones Negative Urine Occult Blood 250 H Urine Nitrite Negative Urine Bilirubin Negative Urine Urobilinogen Normal Ur Leukocyte Esterase 25 H Urine RBC 25-50 SEEN Urine WBC 0-5 SEEN Ur Squamous Epith Cells 0 SEEN Urine Bacteria 0 SEEN Urine Mucus 0 SEEN Radiography Diagnostic Testing: Clinical Impression(s) from Imaging Studies Abdomen/Pelvis CT 02/20/23 07:33 IMPRESSION: Left hydroureteronephrosis secondary to a 2.7 mm calculus at the ureterovesicular junction. Fatty infiltration of the liver associated with hepatomegaly. Colonic diverticulosis. Electronically Signed: Erica Bartlett MD at 8:38 EDT , CT scan of the abdomen and pelvis was obtained. There is a 2.7 mm calculus at the left distal ureter at the ureterovesicular junction. There is moderate hydronephrosis and hydroureter. There is fatty infiltration of the liver and diverticulosis. This was interpreted by the radiologist and was also independently reviewed by myself. Treatment and Re-Evaluation :: Patient was given IV fluids, morphine, and Zofran. Patient is feeling better on reevaluation. Patient was advised of her findings. Patient was given a prescription for a short course of [place]. Patient was instructed. Plenty of fluids. Patient was instructed to follow-up with her primary care physician in 5 to 7 days. Patient was also given a referral for urology. Patient understood and was agreeable with the plan. All questions were answered. Discharge Plan Triage Chief Complaint: Abd Pain ED Provider: Carlton Vaughn Dx/Rx/DC Orders Clinical Impression: Calculus of distal left ureter, Obesity (BMI 30-39.9) Instructions: ED Kidney Stone w/ Colic Prescriptions: New hydrocodone-acetaminophen [hydrocodone-acetaminophen] 5-325 mg tablet 1 tab PO Q6H PRN PRN (Reason: Pain) 3 Days Qty: 10 0RF No Action lisinopril 10 mg tablet 10 mg PO DAILY Primary Care Provider: Moody Ray Referrals: Tracie Buchanan MD [Med Staff - Active Staff] - 3-5 Days Moody Ray DO [Primary Care Provider] - 5-7 Days Disposition Disposition: Home, Self Care
--- NOTE | 2023-02-20 07:33 | CT_ITS ---
INDICATION: Pain, LLQ pain wrapping around flank, hx hypertension. EXAMINATION: CT ABDOMEN AND PELVIS WITHOUT CONTRAST - CT Abdomen And Pelvis W/O Contrast Injection TECHNIQUE: Helically acquired images were obtained of the abdomen and pelvis without oral or IV contrast. A radiation dose optimization technique was used for this scan. IV Contrast dosage and agent: None. Oral contrast: None. RADIATION DOSAGE (If Supplied By Facility): CTDIvol = ( 21.42 ) mGy, DLP = ( 1114.10 ) mGycm COMPARISON: November 07, 2018 FINDINGS: LOWER CHEST: Lung bases are clear. No cardiomegaly or pericardial effusion. The lack of intravenous contrast limits evaluation of solid visceral organs. LIVER: The liver is diffusely low in attenuation consistent with fatty infiltration. There is hepatomegaly. GALLBLADDER AND BILIARY TREE: No calcified gallstones. No gallbladder distension or wall edema. No intra- or extrahepatic biliary ductal dilation. PANCREAS: No focal cystic or solid mass. SPLEEN: Normal size without focal cystic or solid mass. ADRENAL GLANDS: No nodules. KIDNEYS AND URETERS: Normal renal size and position. There is left sided hydroureteronephrosis secondary to a 2.7 mm calculus within the ureterovesicular junction. PERITONEUM: No ascites or free air. No other fluid collection. BOWEL: No evidence of acute appendicitis. No stomach or bowel distension. There are scattered diverticula arising from the colon. No focal inflammatory change. LYMPH NODES: No enlarged mesenteric or retroperitoneal lymph nodes. There are stable prominent nonpathologically enlarged retroperitoneal lymph nodes. VESSELS: Aorta is non-dilated. URINARY BLADDER: Unremarkable. REPRODUCTIVE ORGANS: No pelvic masses. ABDOMINAL WALL: No discrete abdominal or pelvic wall hernia. BONES: No lytic or blastic abnormality. CT/Abdomen/Pelvis without Cont IMPRESSION: Left hydroureteronephrosis secondary to a 2.7 mm calculus at the ureterovesicular junction. Fatty infiltration of the liver associated with hepatomegaly. Colonic diverticulosis. Electronically Signed: Erica Bartlett MD at 8:38 EDT ,
[2023-02-20] MEDS: 0.9% Normal Saline 1,000 ML 1000 ML IV (07:43)
[2023-02-20] MEDS: Morphine 4 MG/ML Syringe IV (07:43)
[2023-02-20] MEDS: Ondansetron 4 MG/2 ML Vial IV (07:43)
[2023-02-20 07:49] LABS: Absolute Lymphocyte Count 4.56 X10^3/uL (0.83-4.51); Absolute Neutrophil Count 6.5 X10^3/uL (2.0-7.7); Basophil# 0.07 X10^3/uL; Basophil% 0.6 % (0-1); Eosinophil# 0.19 X10^3/uL; Eosinophils% 1.6 % (0-5); Lymphocyte # 4.56 X10^3/ul (0.83-4.51); Lymphocyte % 37.7 % (19-41); Mean Corp Hgb Conc 34.1 g/dL (32-36); Mean Corpuscular Hgb 30.7 pg (27.0-32.0); Mean Platelet Vol. 8.6 fl (6.2-12.0); Monocyte# 0.76 X10^3/uL; Monocyte% 6.3 % (0-10); NRBC Flagged by Analyzer 0 % (0-5); Neutrophil # 6.47 X10^3/uL (2.7-7.7); Neutrophil % 53.4 % (47-70); Platelet Count 395 K/mm3 (150-450); Red Blood Count 4.89 M/mm3 (4.2-5.4); White Blood Count 12.1 K/mm3 (4.4-11.0)
[2023-02-20 08:01] LABS: Anion Gap 8 (5-15); BUN 11 mg/dL (7-18); BUN/Creat Ratio 13.8 RATIO (10-20); Calcium,Total 9.3 mg/dL (8.5-10.1); Chloride 109 mmol/L (98-107); EST Glomerular Filtration Rate 88 mL/min (>60); Est Glom Filt Rate - Afr Amer 106 mL/min (>60); Glucose 113 mg/dL (74-106); Sodium Level 141 mmol/L (136-145)
[2023-02-20 08:06] LABS: Internal QC Validated? YES +Cl - CLEAR BKGD; Pregnancy, Serum, hCG Quali. NEGATIVE Negative
[2023-02-20 08:07] VITALS: BMI 39.6
[2023-02-20 08:10] LABS: Bacteria 0 SEEN /hpf (None Seen); Color, Urine Yellow (Yellow); Glucose, Dipstick Normal (Normal); Ketone-Dipstick Negative (Negative); Leukocyte Esterase-Dipstick 25 /ul (Negative); Mucous, Urine 0 SEEN /hpf (<or=2+); Nitrite-Dipstick Negative (Negative); Occult Blood-Urine 250 /ul (Negative); Protein-Dipstick 30 mg/dl (Negative); Specific Gravity, Urine 1.015 (1.002-1.030); Squamous Epithelial Cells - UA 0 SEEN /hpf (5-10); Urine Bilirubin Dipstick Negative (Negative); Urine Clarity Sl. Cloudy (Clear); Urine Urobilinogen Normal (Normal)
[2023-02-20 08:19] LABS: Red Blood Cells-Urine 25-50 SEEN /hpf (0-5)
[2023-02-20 08:20] LABS: White Blood Cells 0-5 SEEN /hpf (0-5)
[2023-02-20 08:55] VITALS: BP 138/79; PULSE 80; RESP 18; O2SAT 98
[2023-02-20 09:02] VITALS: RESP 18
== END 2023-02-20 09:02 | disposition home or self-care (01) ==
PROVIDERS: Emergency Provider Emergency Medicine; PCP Student in an Organized Health Care Education/Training Program; Visit Provider Emergency Medicine
DX: N13.2 Hydronephrosis with renal and ureteral calculous obstruction (principal); I10 Essential (primary) hypertension; E66.9 Obesity, unspecified; Z79.899 Other long term (current) drug therapy
CPT/HCPCS: 74176; 80048; 81001; 84703; 85025; 96361; 96374; 96375; 99283; J7030; A4216; J2405

== ENCOUNTER → 2024-11-30 | Outpatient (CLI) | payer BC, SELFPAY ==
--- NOTE | 2024-11-30 12:55 | US_ITS ---
PROCEDURE: PELVIC W/ TRANSVAGINAL REASON FOR EXAM: Irregular bleeding.. LMP November 05, 2024. TECHNIQUE: Transabdominal and transvaginal pelvic ultrasound COMPARISON: None FINDINGS: Measurements: Uterus: 10 cm x 6.4 cm x 5.6 cm with a volume of 189 mL nabothian cysts. Endometrial Thickness: 9.6 mm. Hyperechoic. Right Ovary: 4.4 cm x 2.8 cm x 1.9 cm with a volume of 12.2 mL. There is a 2.2 cm x 2.4 cm x 1.7 cm cyst. Left Ovary: 2.5 cm x 2.1 cm x 1.5 cm with a volume of 3.95 mL. TRANSABDOMINAL: Uterus: Normal size, myometrial echotexture, and contour. Endometrium: Unremarkable. Right ovary: Normal size and echotexture. Left ovary: Normal size and echotexture. No large pelvic mass identified. Transvaginal sonography was performed to better visualize the endometrium. TRANSVAGINAL: Uterus: Anteverted. Normal contour and myometrial echotexture. Endometrium: Normal echotexture. Right ovary: Normal size and echotexture. 2.2 cm x 2.4 cm x 1.7 cm cyst. Left ovary: Normal size and echotexture. Other adnexal findings: None. Cul-de-sac: No free intraperitoneal fluid identified. No tenderness. US/Pelvic w/ Transvaginal IMPRESSION: Small right ovarian cyst. Reading Location: [id number]
== END | disposition home or self-care (01) ==
LOC: US 12:51
PROVIDERS: PCP Student in an Organized Health Care Education/Training Program; Referring Provider Nurse Practitioner Women's Health; Visit Provider Nurse Practitioner Women's Health
DX: N92.6 Irregular menstruation, unspecified (principal)
CPT/HCPCS: 76830; 76856